=== PATIENT | female | born 1930 | race African-American/Black ===

== ENCOUNTER 2016-08-23 15:05 | Emergency (ER) | payer OTHER ==
[~2016-08-23] VITALS: Ht 182.9 cm; Wt 80.0 kg
[~2016-08-23 15:05] MED LIST: CYCL5TAB PO; SYMB80AE INH; TRAM50TA PO
--- NOTE | 2016-08-23 17:39 | PD ---
HPI Chief Complaint: ex parte Time Seen by Provider: 17:39 Travel History International Travel<30 days: No Contact w/Intl Traveler<30days: No History of Present Illness HPI 85-year-old female with a history of asthma is brought to the emergency department under ex parte for involuntary psychiatric evaluation. Per the ex parte paperwork filled out by her son the patient has been paranoid about him stealing things from her. Per the documentation she told him "if I had a gun I would shoot you." Per the documentation she has also made statements about killing his dog. The patient denies any suicidal or homicidal ideations. States that she and her son do have a strained relationship and she views and as "a good for nothing dud." She denies any medical complaints. She denies fever, chills, nausea, vomiting, chest pain, shortness of breath, abdominal pain , lightheadedness, dizziness, numbness or tingling, weakness. Denies any alcohol or drug use. Denies any history of psychiatric or mental health issues. No other complaints. PFSH Past Medical History Arthritis: Yes Asthma: Yes Autoimmune Disease: No Blood Disorders: No Cancer: No Cardiovascular Problems: No Chemotherapy: No Diminished Hearing: No Endocrine: No Genitourinary: Yes (FIBROID TUMORS) Musculoskeletal: No Neurologic: No Psychiatric: No Respiratory: Yes Immunizations Current: No Migraines: Yes Radiation Therapy: No Menopausal: Yes Dilation and Curettage (D&C): Yes (WITH HYSTROSCOPY 03-16-11) Past Surgical History Hysterectomy: Yes Tonsillectomy: Yes Other Surgery: No Social History Alcohol Use: Yes (RARE) Tobacco Use: No Substance Use: No Allergies-Medications (Allergen,Severity, Reaction): Coded Allergies: Codeine (Verified Allergy, Severe, STOMACH PAIN, 08/23/16) Iodine (Verified Allergy, Severe, 08/23/16) Reported Meds & Prescriptions Reported Meds & Active Scripts Active Flexeril (Cyclobenzaprine HCl) 5 Mg Tab 5 Mg PO TID PRN Tramadol (Tramadol HCl) 50 Mg Tab 50 Mg PO Q6H PRN Reported Symbicort Inh (Budesonide/Formoterol Fumarate) 80-4.5 Mcg/Act Aero 2 Puff INH Q12HR Review of Systems Except as stated in HPI: all other systems reviewed are Neg Physical Exam Narrative GENERAL: Well-nourished and well-developed elderly female patient in no acute distress who is nontoxic appearing. SKIN: Warm and dry. HEAD: Normocephalic and atraumatic. EYES: No injection, drainage, or hyphema noted. PERRLA. EOMI. ENT: No nasal drainage noted. Oropharynx is clear. NECK: Supple and the trachea is midline. CARDIOVASCULAR: Regular rate and rhythm. RESPIRATORY: Breath sounds are equal bilaterally with no accessory muscle use, wheezing, rhonchi, or crackles. GASTROINTESTINAL: Abdomen is soft, non-tender, and nondistended. MUSCULOSKELETAL: No obvious deformities, swelling, cyanosis, or ecchymosis is present throughout the upper and lower extremities. Patient has full range of motion without any signs of neurovascular compromise. Strength 5/5 upper and lower extremities equal bilaterally. NEUROLOGICAL: Awake, alert, and oriented. Normal speech and gait. Cranial nerves are grossly intact. Data Data Last Documented VS Vital Signs Date Time Temp Pulse Resp B/P Pulse Ox O2 Delivery O2 Flow Rate FiO2 08/23/16 18:59 81 14 129/68 100 Room Air 08/23/16 17:50 98.7 Orders Complete Blood Count With Diff (08/23/16 17:39) Comprehensive Metabolic Panel (08/23/16 17:39) Urinalysis - C+S If Indicated (08/23/16 17:39) Drug Screen, Random Urine (08/23/16 17:39) Alcohol (Ethanol) (08/23/16 17:39) Psych Screen (08/23/16 17:39) Labs Laboratory Tests Test 08/23/16 08/23/16 19:37 20:56 White Blood Count 6.9 TH/MM3 Red Blood Count 4.08 MIL/MM3 Hemoglobin 10.8 GM/DL Hematocrit 32.8 % Mean Corpuscular Volume 80.4 FL Mean Corpuscular Hemoglobin 26.4 PG Mean Corpuscular Hemoglobin 32.9 % Concent Red Cell Distribution Width 16.4 % Platelet Count 165 TH/MM3 Mean Platelet Volume 10.0 FL Neutrophils (%) (Auto) 60.6 % Lymphocytes (%) (Auto) 26.8 % Monocytes (%) (Auto) 5.2 % Eosinophils (%) (Auto) 5.7 % Basophils (%) (Auto) 1.7 % Neutrophils # (Auto) 4.2 TH/MM3 Lymphocytes # (Auto) 1.9 TH/MM3 Monocytes # (Auto) 0.4 TH/MM3 Eosinophils # (Auto) 0.4 TH/MM3 Basophils # (Auto) 0.1 TH/MM3 CBC Comment DIFF FINAL Differential Comment Sodium Level 142 MEQ/L Potassium Level 4.1 MEQ/L Chloride Level 109 MEQ/L Carbon Dioxide Level 26.7 MEQ/L Anion Gap 6 MEQ/L Blood Urea Nitrogen 14 MG/DL Creatinine 0.91 MG/DL Estimat Glomerular Filtration 71 ML/MIN Rate Random Glucose 93 MG/DL Calcium Level 8.9 MG/DL Total Bilirubin 0.6 MG/DL Aspartate Amino Transf 12 U/L (AST/SGOT) Alanine Aminotransferase 12 U/L (ALT/SGPT) Alkaline Phosphatase 92 U/L Total Protein 7.7 GM/DL Albumin 3.8 GM/DL Ethyl Alcohol Level LESS THAN 3 MG/DL Urine Color YELLOW Urine Turbidity CLEAR Urine pH 5.0 Urine Specific [place] 1.011 Urine Protein NEG mg/dL Urine Glucose (UA) NEG mg/dL Urine Ketones NEG mg/dL Urine Occult Blood SMALL Urine Nitrite NEG Urine Bilirubin NEG Urine Urobilinogen LESS THAN 2.0 MG/DL Urine Leukocyte Esterase SMALL Urine RBC 1 /hpf Urine WBC 3 /hpf Microscopic Urinalysis Comment CULT NOT INDICATED MDM Medical Decision Making Medical Screen Exam Complete: Yes Emergency Medical Condition: Yes Differential Diagnosis Differential: Depression versus adjustment reaction versus anxiety versus PTSD versus psychosis NOS versus mood disorder NOS versus substance induced mood disorder versus ODD versus adjustment reaction versus schizophrenia versus bipolar disorder versus schizoaffective versus electrolyte abnormality versus dementia Narrative Course Patient presents under ex parte. Physical examination and vital signs are essentially unremarkable. Patient has no medical complaints to report. Psych screen has been ordered. The laboratory results are unremarkable for any acute abnormalities. The patient is medically cleared for psychiatric evaluation and disposition. Diagnosis Primary Impression: Mood disorder Dayana Lara Aug 23, 2016 17:39
[2016-08-23 17:50] VITALS: BP 134/68; PULSE 86; RESP 16; TEMP 98.7; O2SAT 98
[2016-08-23 18:59] VITALS: BP 129/68; PULSE 81; RESP 14; O2SAT 100
[2016-08-23 20:24] LABS: AUTOMATED NEUTROPHIL # 4.2 TH/MM3 (1.8-7.7); BASOPHIL # 0.1 TH/MM3 (0-0.2); BASOPHIL % 1.7 % (0.0-2.0); EOSINOPHIL # 0.4 TH/MM3 (0-0.4); EOSINOPHIL % 5.7 % (0.0-4.0); HEMATOCRIT 32.8 % (35.0-46.0); HEMO FLAGS DIFF FINAL; LYMPH % 26.8 % (9.0-44.0); LYMPHOCYTE # 1.9 TH/MM3 (1.0-4.8); MEAN CELL VOLUME 80.4 FL (80.0-100.0); MEAN CORPUSCULAR HEMOGLOBIN 26.4 PG (27.0-34.0); MEAN CORPUSCULAR HGB CONC 32.9 % (32.0-36.0); MONO % 5.2 % (0.0-8.0); NEUT % 60.6 % (16.0-70.0); PLATELET COUNT 165 TH/MM3 (150-450); RED BLOOD COUNT 4.08 MIL/MM3 (4.00-5.30); RED CELL DISTRIBUTION WIDTH 16.4 % (11.6-17.2); WHITE BLOOD COUNT 6.9 TH/MM3 (4.0-11.0)
[2016-08-23 20:47] LABS: ALT (GPT) 12 U/L (10-53); ANION GAP 6 MEQ/L (5-15); AST (GOT) 12 U/L (15-37); BICARBONATE 26.7 MEQ/L (21.0-32.0); BLOOD UREA NITROGEN 14 MG/DL (7-18); CHLORIDE 109 MEQ/L (98-107); GLOMERULAR FILTRATION RATE 71 ML/MIN (>89); POTASSIUM 4.1 MEQ/L (3.5-5.1); SODIUM (NA) 142 MEQ/L (136-145)
[2016-08-23 20:48] LABS: ALKALINE PHOSPHATASE 92 U/L (45-117); TOTAL BILIRUBIN ADULT 0.6 MG/DL (0.2-1.0)
[2016-08-23 21:34] LABS: BLOOD, URINE SMALL (NEG); COMMENT (UR) CULT NOT INDICATED; CULTURE IF INDICATED CULT NOT INDICATED; GLUCOSE,URINE NEG (NEG); KETONE, URINE NEG (NEG); NITRITE,URINE NEG (NEG); URINE COLOR YELLOW (YELLW/STRAW)
[2016-08-23 21:36] LABS: AMPHETAMINE, URINE NEG (NEG); BARBITURATES, URINE NEG (NEG); COCAINE, URINE NEG (NEG)
[2016-08-24 07:32] VITALS: BP 133/63; PULSE 76; RESP 16; O2SAT 99
[2016-08-24 11:00] VITALS: BP 124/76; PULSE 89; RESP 19; O2SAT 96
--- NOTE | 2016-08-24 12:29 | PD ---
History of Present Illness Chief Complaint: Medical Clearance Time Seen by Provider: 11:45 Travel History International Travel<30 Days: No Contact w/Intl Traveler<30days: No Known affected area: No Legal Status Legal Status: Ex Parte History of Present Illness: History of Present Illness HPI 85-year-old female with a history of asthma and no previous psychiatric history who is brought to the emergency department under ex parte for involuntary psychiatric evaluation. Per the ex parte paperwork filled out by her son the patient has been paranoid about him stealing things from her. He also alleges that she told him "if I had a gun I would shoot you." She has also made statements about killing his dog. Patient is seen. Record is reviewed. As per EMR she has not had previous contact with [facility] [place] She is seen in main ED. Awake, alert and oriented x 4. Speech is clear and logical. She engages well with chart writer and answers questions appropriately. In terms of reason for being here she states " My son had the police pick me up". She goes on to report that she does not get along with her son, that he tries to " get into my things such as my money ". She does not endorse any hallucinations, no delusions and no paranoia. There is no suicidal or homicidal ideation, intent or plan. She admits to getting angry at her son but does not report wanting to harm him. As per ER nurse patient has not presented any behavioral concerns. Telephone call to patient's son Derrick at [phone]. Son reports that he has been living with his mother since April and that prior to that she was living independently in her own apartment. He reports that his mother accuses him of stealing her things like her lottery tickets and her money.He just found a small handgun in her room and he has removed it from her possession.He reports that his mother is very active and gets around well . She goes to [employer] , goes out shopping, etc. He has been trying to complete paperwork for power of sas analyst and felt that bringing her here would help with this process. He was also trying to find information regarding her insurance policy and she found out and became very angry. He does not have concerns regarding her safety and thanks me for our help and our call. PFSH Past Medical History Arthritis: Yes Asthma: Yes Autoimmune Disease: No Blood Disorders: No Cancer: No Cardiovascular Problems: No Chemotherapy: No Diminished Hearing: No Endocrine: No Gastrointestinal Disorders: No Genitourinary: Yes (FIBROID TUMORS) Musculoskeletal: No Neurologic: No Psychiatric: No Respiratory: Yes Immunizations Current: No Migraines: Yes Radiation Therapy: No Menopausal: Yes Dilation and Curettage (D&C): Yes (WITH HYSTROSCOPY 03-16-11) Past Surgical History Hysterectomy: Yes Tonsillectomy: Yes Other Surgery: No Psychiatric History Psychiatric History Hx Psychiatric Treatment: none History of Inpatient Treatment: No Guns or firearms in home: Yes (Son has removed from the home) Social History Born in [place]. One of 12 siblings. Worked as a front window cashier. Lives with her son. Hx Alcohol Use: Yes (RARE) Hx Tobacco Use: No Hx Substance Use: No Hx of Substance Use Treatment: No Family Psychiatric History negative Allergies-Medications (Allergen,Severity, Reaction): Coded Allergies: Codeine (Verified Allergy, Severe, STOMACH PAIN, 08/23/16) Iodine (Verified Allergy, Severe, 08/23/16) Reported Meds & Prescriptions Reported Meds & Active Scripts Active Flexeril (Cyclobenzaprine HCl) 5 Mg Tab 5 Mg PO TID PRN Tramadol (Tramadol HCl) 50 Mg Tab 50 Mg PO Q6H PRN Reported Symbicort Inh (Budesonide/Formoterol Fumarate) 80-4.5 Mcg/Act Aero 2 Puff INH Q12HR Review of Systems Constitutional: DENIES: Diaphoretic episodes, Fatigue, Fever, Weight gain, Weight loss, Chills, Dizziness, Change in appetite, Night Sweats Endocrine: DENIES: Abnorml menstrual pattern, Heat/cold intolerance, Polydipsia , Polyuria, Polyphagia Eyes: COMPLAINS OF: Vision loss Ears, nose, mouth, throat: COMPLAINS OF: Hearing loss Respiratory: DENIES: Apneas, Cough, Snoring, Wheezing, Hemoptysis, Sputum production, Shortness of breath Cardiovascular: DENIES: Chest pain, Palpitations, Syncope, Dyspnea on Exertion , PND, Lower Extremity Edema, Orthopnea, Claudication Gastrointestinal: DENIES: Abdominal pain, Black stools, Bloody stools, Constipation, Diarrhea, Nausea, Vomiting, Difficulty Swallowing, Anorexia Genitourinary: DENIES: Abnormal vaginal bleeding, Dysmenorrhea, Dyspareunia, Sexual dysfunction, Urinary frequency, Urinary incontinence, Urgency, Hematuria , Dysuria, Nocturia, Vaginal discharge Musculoskeletal: COMPLAINS OF: Joint pain Integumentary: DENIES: Abnormal pigmentation, Pruritus, Rash, Nail changes, Breast masses, Breast skin changes, Nipple discharge Hematologic/lymphatic: DENIES: Bruising, Lymphadenopathy Immunologic/allergic: DENIES: Eczema, Urticaria Neurologic: DENIES: Abnormal gait, Headache, Localized weakness, Paresthesias, Seizures, Speech Problems, Tremor, Poor Balance Psychiatric: COMPLAINS OF: Agitation Exam Alert: Yes [place]: Person (ox4) Mood: Angry Affect: Euthymic Speech: Clear Eye Contact: Normal Memory Intact: Comment (Able to spell the word world both ways. ) Hallucinations: Other (denies any) Delusions: No Delusion Type: Other (none) Suicidal: Ideation (denies ) Homicidal: Ideation (denies any) Insight/Judgement Fair. Not impaired. MDM Medical Decision Making Medical Record Reviewed: Yes Assessment/Plan Lift BA.Does not meet BA criteria. There is no psychosis and no tracy. There is no suicidal or homicidal ideation. Patient is angry with her son as he is beginning to make arrangements such as obtaining power of sas analyst. He has no issues over having her discharged and having her come home. Orders Complete Blood Count With Diff (08/23/16 17:39) Comprehensive Metabolic Panel (08/23/16 17:39) Urinalysis - C+S If Indicated (08/23/16 17:39) Drug Screen, Random Urine (08/23/16 17:39) Alcohol (Ethanol) (08/23/16 17:39) Psych Screen (08/23/16 17:39) Diet Regular Basic (08/24/16 Breakfast) Results Vital Signs Date Time Temp Pulse Resp B/P Pulse Ox O2 Delivery O2 Flow Rate FiO2 08/24/16 11:00 89 19 124/76 96 Room Air 08/24/16 07:32 76 16 133/63 99 Room Air 08/23/16 18:59 81 14 129/68 100 Room Air 08/23/16 17:50 98.7 86 16 134/68 98 Laboratory Tests Test 08/23/16 08/23/16 19:37 20:56 White Blood Count 6.9 Red Blood Count 4.08 Hemoglobin 10.8 Hematocrit 32.8 Mean Corpuscular Volume 80.4 Mean Corpuscular Hemoglobin 26.4 Mean Corpuscular Hemoglobin 32.9 Concent Red Cell Distribution Width 16.4 Platelet Count 165 Mean Platelet Volume 10.0 Neutrophils (%) (Auto) 60.6 Lymphocytes (%) (Auto) 26.8 Monocytes (%) (Auto) 5.2 Eosinophils (%) (Auto) 5.7 Basophils (%) (Auto) 1.7 Neutrophils # (Auto) 4.2 Lymphocytes # (Auto) 1.9 Monocytes # (Auto) 0.4 Eosinophils # (Auto) 0.4 Basophils # (Auto) 0.1 CBC Comment DIFF FINAL Differential Comment Sodium Level 142 Potassium Level 4.1 Chloride Level 109 Carbon Dioxide Level 26.7 Anion Gap 6 Blood Urea Nitrogen 14 Creatinine 0.91 Estimat Glomerular Filtration 71 Rate Random Glucose 93 Calcium Level 8.9 Total Bilirubin 0.6 Aspartate Amino Transf 12 (AST/SGOT) Alanine Aminotransferase 12 (ALT/SGPT) Alkaline Phosphatase 92 Total Protein 7.7 Albumin 3.8 Ethyl Alcohol Level LESS THAN 3 Urine Color YELLOW Urine Turbidity CLEAR Urine pH 5.0 Urine Specific [place] 1.011 Urine Protein NEG Urine Glucose (UA) NEG Urine Ketones NEG Urine Occult Blood SMALL Urine Nitrite NEG Urine Bilirubin NEG Urine Urobilinogen LESS THAN 2.0 Urine Leukocyte Esterase SMALL Urine RBC 1 Urine WBC 3 Microscopic Urinalysis Comment CULT NOT INDICATED Urine Opiates Screen NEG Urine Barbiturates Screen NEG Urine Amphetamines Screen NEG Urine Benzodiazepines Screen NEG Urine Cocaine Screen NEG Urine Cannabinoids Screen NEG Diagnosis Primary Impression: Mood disorder Additional Impression: Adjustment disorder Psychiatrically Cleared: Yes Med/ Other Pt Specific Info: No Change to Meds Disposition: 01 DISCHARGE HOME Condition: Stable Problem Qualifiers Additional Impression: Adjustment disorder Qualified Code: F43.22 - Adjustment disorder with anxious mood Iwona Cobos Aug 24, 2016 12:29
[2016-08-24 13:00] VITALS: BP 153/80; PULSE 80; RESP 17; O2SAT 96
== END 2016-08-24 14:34 | disposition home or self-care (01) ==
LOC: NEPA 15:05 → NEDAMB 08-24 14:34
DX: F39 Unspecified mood [affective] disorder (principal); F43.20 Adjustment disorder, unspecified
CPT/HCPCS: 80053; 80307; 80320; 81001; 85025; 99284

== ENCOUNTER 2017-01-24 09:45 | Observation (INO) | payer OTHER ==
[~2017-01-24] VITALS: Ht 182.9 cm; Wt 76.0 kg
[2017-01-24] VITALS (10 sets, daily range): BP systolic 119–156; BP diastolic 58–70; PULSE 62–84; RESP 15–18; TEMP 97.9–98.5; O2SAT 97–100
[2017-01-24] MEDS ORDERED: SODIUM CHLORIDE 0.9% FLUSH 10 ML FLUSH IVF PRN (10:15)
[2017-01-24] MEDS ORDERED: NITROGLYCERIN 0.4 MG SL 25 TABS/BTL SL ONE (10:15)
[2017-01-24] MEDS ORDERED: ASPIRIN 325 MG TAB PO ONE (10:15)
--- NOTE | 2017-01-24 10:28 | PD ---
HPI Chief Complaint: Chest Pain Time Seen by Provider: 10:06 Travel History International Travel<30 days: No Contact w/Intl Traveler<30days: No Traveled to known affect area: No History of Present Illness HPI 86-year-old female presents with left-sided chest pressure and soreness under her left breast for the past 2 weeks. She states that it has gotten worse so she elected to come here. She states she has not taken an aspirin yet today. She denies prior history of this. She does not follow with a director of global marketing and denies prior cardiac testing. Severity is moderate. Pain is worse with movement. She denies other modifying factors. PFSH Past Medical History Arthritis: Yes Asthma: Yes Autoimmune Disease: No Blood Disorders: No Cancer: No Cardiovascular Problems: No Chemotherapy: No Diminished Hearing: No Endocrine: No Gastrointestinal Disorders: No Genitourinary: Yes (FIBROID TUMORS) Musculoskeletal: No Neurologic: No Psychiatric: No Respiratory: Yes (asthma) Immunizations Current: No Migraines: Yes Radiation Therapy: No Menopausal: Yes Dilation and Curettage (D&C): Yes (WITH HYSTROSCOPY 03-16-11) Past Surgical History Hysterectomy: Yes Tonsillectomy: Yes Other Surgery: No Family History Family Myocardial Infarction: No Social History Alcohol Use: Yes (RARE) Tobacco Use: No Substance Use: No Allergies-Medications (Allergen,Severity, Reaction): Coded Allergies: Codeine (Verified Allergy, Severe, STOMACH PAIN, 01/24/17) Iodine (Verified Allergy, Severe, 01/24/17) Reported Meds & Prescriptions Reported Meds & Active Scripts Active Flexeril (Cyclobenzaprine HCl) 5 Mg Tab 5 Mg PO TID PRN Tramadol (Tramadol HCl) 50 Mg Tab 50 Mg PO Q6H PRN Reported Symbicort Inh (Budesonide/Formoterol Fumarate) 80-4.5 Mcg/Act Aero 2 Puff INH Q12HR Review of Systems Except as stated in HPI: all other systems reviewed are Neg Physical Exam Narrative GENERAL: Well-nourished, well-developed patient. SKIN: Warm and dry. HEAD: Normocephalic and atraumatic. EYES: No injection or drainage. ENT: No nasal drainage noted. NECK: Supple, trachea midline. CARDIOVASCULAR: Regular rate and rhythm RESPIRATORY: Breath sounds equal bilaterally. No accessory muscle use. GASTROINTESTINAL: Abdomen soft, non-tender, nondistended. EXTREMITIES: No edema. NEUROLOGICAL: Awake and alert. Motor and sensory grossly within normal limits. Normal speech. Data Data Last Documented VS Vital Signs Date Time Temp Pulse Resp B/P Pulse Ox O2 Delivery O2 Flow Rate FiO2 01/24/17 10:35 15 01/24/17 10:17 147/63 100 Room Air 01/24/17 09:47 98.2 84 Orders Electrocardiogram (01/24/17 10:06) Ckmb (Isoenzyme) Profile (01/24/17 10:06) Complete Blood Count With Diff (01/24/17 10:06) Comprehensive Metabolic Panel (01/24/17 10:06) Magnesium (Mg) (01/24/17 10:06) Prothrombin Time / Inr (Pt) (01/24/17 10:06) Act Partial Throm Time (Ptt) (01/24/17 10:06) Troponin I (01/24/17 10:06) Chest, Single Ap (01/24/17 10:06) Ecg Monitoring (01/24/17 10:06) Bilateral Bp Monitoring (01/24/17 10:06) Iv Access Insert/Monitor (01/24/17 10:06) Oximetry (01/24/17 10:06) Sodium Chloride 0.9% Flush (Ns Flush) (01/24/17 10:15) Aspirin (Aspirin) (01/24/17 10:15) Nitroglycerin Sl (Nitrostat Sl) (01/24/17 10:15) Admit Order (Ed Use Only) (01/24/17 11:30) Labs Laboratory Tests Test 01/24/17 01/24/17 10:20 11:04 White Blood Count 5.4 TH/MM3 Red Blood Count 4.08 MIL/MM3 Hemoglobin 11.0 GM/DL Hematocrit 33.6 % Mean Corpuscular Volume 82.4 FL Mean Corpuscular Hemoglobin 27.1 PG Mean Corpuscular Hemoglobin 32.8 % Concent Red Cell Distribution Width 14.4 % Platelet Count 155 TH/MM3 Mean Platelet Volume 10.8 FL Neutrophils (%) (Auto) 60.7 % Lymphocytes (%) (Auto) 23.0 % Monocytes (%) (Auto) 5.2 % Eosinophils (%) (Auto) 10.4 % Basophils (%) (Auto) 0.7 % Neutrophils # (Auto) 3.3 TH/MM3 Lymphocytes # (Auto) 1.2 TH/MM3 Monocytes # (Auto) 0.3 TH/MM3 Eosinophils # (Auto) 0.6 TH/MM3 Basophils # (Auto) 0.0 TH/MM3 CBC Comment DIFF FINAL Differential Comment Sodium Level 145 MEQ/L Potassium Level 3.9 MEQ/L Chloride Level 112 MEQ/L Carbon Dioxide Level 24.2 MEQ/L Anion Gap 9 MEQ/L Blood Urea Nitrogen 17 MG/DL Creatinine 1.02 MG/DL Estimat Glomerular Filtration 62 ML/MIN Rate Random Glucose 115 MG/DL Calcium Level 8.8 MG/DL Magnesium Level 2.3 MG/DL Total Bilirubin 0.3 MG/DL Aspartate Amino Transf 19 U/L (AST/SGOT) Alanine Aminotransferase 15 U/L (ALT/SGPT) Alkaline Phosphatase 91 U/L Total Creatine Kinase 66 U/L Troponin I LESS THAN 0.02 NG/ML Total Protein 7.4 GM/DL Albumin 3.6 GM/DL Prothrombin Time 11.6 SEC Prothromb Time International 1.0 RATIO Ratio Activated Partial 24.9 SEC Thromboplast Time MDM Medical Decision Making Medical Screen Exam Complete: Yes Emergency Medical Condition: Yes Medical Record Reviewed: Yes (past history confirmed) Interpretation(s) CBC & BMP Diagram 01/24/17 10:20 Last 24 hours Impressions Chest X-Ray 01/24/17 1006 Signed Impressions: Service Date/Time: Tuesday, January 24, 2017 10:02 - CONCLUSION: No acute disease. Srikanth Tatum MD EKG shows NSR, no ST elevation or depression, and no arrhythmias. No significant T-wave inversions. Differential Diagnosis VT, musculoskeletal, gastritis, costochondritis Narrative Course Will check blood work, chest x-ray, EKG and dose with aspirin and nitroglycerin and reevaluate ED workup without emergent process, patient agrees to chest pain center observation Diagnosis Primary Impression: Chest pain Qualified Code: R07.9 - Chest pain, unspecified type Admitting Information Admitting Physician Requests: Observation Leandra Chacon MD Jan 24, 2017 10:28
--- NOTE | 2017-01-24 10:50 | RADRPT ---
EXAM DATE/TIME: 01/24/2017 10:02 [facility] COMPARISON: CHEST PA & LAT, September 25, 2014, 15:50. CHEST SINGLE AP, September 04, 2015, 8:27. INDICATIONS : Chest pain. MEDICAL HISTORY : Seizures. SURGICAL HISTORY : None. ENCOUNTER: Initial ACUITY: 1 day PAIN SCORE: 6/10 LOCATION: Bilateral chest FINDINGS: A single view of the chest demonstrates the lungs to be symmetrically aerated without evidence of mas s, infiltrate or effusion. The cardiomediastinal contours are unremarkable. Osseous structures are intact. CONCLUSION: No acute disease. Srikanth Tatum MD on January 24, 2017 at 10:46 Board Certified Radiologist. This report was verified electronically.
[2017-01-24 10:58] LABS: AUTOMATED NEUTROPHIL # 3.3 TH/MM3 (1.8-7.7); BASOPHIL % 0.7 % (0.0-2.0); EOSINOPHIL # 0.6 TH/MM3 (0-0.4); EOSINOPHIL % 10.4 % (0.0-4.0); HEMATOCRIT 33.6 % (35.0-46.0); HEMO FLAGS DIFF FINAL; LYMPHOCYTE # 1.2 TH/MM3 (1.0-4.8); MEAN CELL VOLUME 82.4 FL (80.0-100.0); MEAN CORPUSCULAR HEMOGLOBIN 27.1 PG (27.0-34.0); MEAN CORPUSCULAR HGB CONC 32.8 % (32.0-36.0); MONO % 5.2 % (0.0-8.0); NEUT % 60.7 % (16.0-70.0); PLATELET COUNT 155 TH/MM3 (150-450); RED BLOOD COUNT 4.08 MIL/MM3 (4.00-5.30); RED CELL DISTRIBUTION WIDTH 14.4 % (11.6-17.2); WHITE BLOOD COUNT 5.4 TH/MM3 (4.0-11.0)
[2017-01-24 11:23] LABS: ALKALINE PHOSPHATASE 91 U/L (45-117); ALT (GPT) 15 U/L (10-53); ANION GAP 9 MEQ/L (5-15); AST (GOT) 19 U/L (15-37); BICARBONATE 24.2 MEQ/L (21.0-32.0); BLOOD UREA NITROGEN 17 MG/DL (7-18); CHLORIDE 112 MEQ/L (98-107); GLOMERULAR FILTRATION RATE 62 ML/MIN (>89); MAGNESIUM 2.3 MG/DL (1.5-2.5); SODIUM (NA) 145 MEQ/L (136-145); TOTAL BILIRUBIN ADULT 0.3 MG/DL (0.2-1.0)
[2017-01-24 11:24] LABS: CREATINE KINASE 66 U/L (26-192); POTASSIUM 3.9 MEQ/L (3.5-5.1)
[2017-01-24 11:28] LABS: APTT (PATIENT) 24.9 SEC (24.3-30.1); PROTHROMBIN TIME - PATIENT 11.6 SEC (9.8-11.6)
[2017-01-24] MEDS ORDERED: ACETAMINOPHEN 500 MG CPLT PO PRN (12:15)
[2017-01-24] MEDS ORDERED: ONDANSETRON HCL 4 MG/2 ML VIAL IV PRN (12:15)
[2017-01-24] MEDS ORDERED: NITROGLYCERIN 0.4 MG SL 25 TABS/BTL SL PRN (12:15)
[2017-01-24 14:27] LABS: CREATINE KINASE 66 U/L (26-192)
--- NOTE | 2017-01-24 14:43 | HHI.HP ---
HPI Primary Care Physician [facility] Chief Complaint Chest pain History of Present Illness 86-year-old female with history of asthma and arthritis presents to emergency room for further evaluation of chest pain. Onset 1 week ago. Location left inframammary. States pain started at the bottom of her left rib cage initially and "has worked its way up to under my breast." Characterized as a "pain rolling on my rib." No associated symptoms of shortness of breath, nausea, or diaphoresis. Breathing does not make pain better or worse nor does particular movements or position. No precipitating or relieving factors. Denies any similar pain in the past. Endorses worse pain was actually on Monday after walking a half a mile to the [place]. Once returning home she continued to cook supper then felt faint. She did not lose consciousness and denied dizziness. She decided to go to bed early that evening. She decided to come to the ER for further evaluation due to persistent chest discomfort. Review of Systems General: No fatigue,weakness, fever, chills, recent illness, or change in appetite. Has been in her general state of health. HEENT: No PHILIP, no vision changes, no nasal congestion or drainage, no dysphasia CV: As stated above. No palpitations or intermittent leg pain. RESP: No SOB, cough, or wheeze. History of asthma. GI: No nausea, vomiting, bowel changes, diarrhea, constipation, pain, distention , melena, blood in the stool. : No dysuria, urgency, frequency EXT: No lower leg edema, no paraesthesias MS: No discomfort or change in ROM, ambulates with a cane NEURO: No LOC, motor/sensory deficits PSYCH: No anxiety, depression SKIN: No rashes, no concerning lesions Past Family Social History Allergies: Coded Allergies: Codeine (Verified Allergy, Severe, STOMACH PAIN, 01/24/17) Iodine (Verified Allergy, Severe, 01/24/17) Past Medical History Asthma, arthritis, migraines Past Surgical History Hysterectomy, tonsillectomy Reported Medications Active Symbicort Inh (Budesonide/Formoterol Fumarate) 80-4.5 Mcg/Act Aero 2 Puff INH Q12HR Active Ordered Medications Current Medications Medications (Trade) Dose Ordered Sig/Salbador Route Start Time Stop Time Status Last Admin (Tylenol) 500 mg Q4H PRN PO 01/24/17 12:15 (Zofran Inj) 4 mg Q6H PRN IV 01/24/17 12:15 (Nitrostat Sl) 0.4 mg Q5M PRN SL 01/24/17 12:15 (Aspirin) 325 mg DAILY PO 01/25/17 09:00 Social History No known diabetes, hyperlipidemia, or hypertension. Lifelong nonsmoker. Denies any alcohol or illegal drug use. Ambulates with a cane states she tries to get daily activity. Past cardiac testing None Physical Exam Vital Signs Vital Signs Date Time Temp Pulse Resp B/P Pulse Ox O2 Delivery O2 Flow Rate FiO2 01/24/17 13:57 98.0 64 16 128/60 99 01/24/17 13:11 68 16 97 Room Air 01/24/17 13:11 65 15 97 Room Air 01/24/17 12:49 62 16 119/58 97 01/24/17 10:35 15 01/24/17 10:17 18 147/63 100 Room Air 01/24/17 09:47 98.2 84 16 156/70 98 Physical Exam GENERAL: Alert WN, WD, NAD, pleasant, elderly female HEAD: NC, AT EYES: Sclera clear, conjunctiva without injection, pupils equal and round ENT: Mucous membranes pink and moist NECK: Supple, no masses, trachea midline CV: RRR, without murmur, rub, gallop, no JVD, S1-S2 no S3-S4. RESP: Clear lungs throughout bilateral, no crackles, wheeze, rhonchi, symmetrical chest rise, nonlabored, able to speak in full sentences ABD: Soft, NT, ND, no masses, positive bowel tones BACK: No CVAT EXT: Pulses +24, no dependent edema MS: Normal tone 4 extremities, nontender, no obvious deformities, full range of motion NEURO: CN II through CN XII grossly intact, motor strength 5/5, gait WNL PSYCH: A+O 3, pleasant affect, appropriate speech, appropriate mood and affect , insight and judgment SKIN: Normal turgor, normal texture Laboratory Laboratory Tests Test 01/24/17 01/24/17 01/24/17 10:20 11:04 13:20 White Blood Count 5.4 Red Blood Count 4.08 Hemoglobin 11.0 Hematocrit 33.6 Mean Corpuscular Volume 82.4 Mean Corpuscular Hemoglobin 27.1 Mean Corpuscular Hemoglobin 32.8 Concent Red Cell Distribution Width 14.4 Platelet Count 155 Mean Platelet Volume 10.8 Neutrophils (%) (Auto) 60.7 Lymphocytes (%) (Auto) 23.0 Monocytes (%) (Auto) 5.2 Eosinophils (%) (Auto) 10.4 Basophils (%) (Auto) 0.7 Neutrophils # (Auto) 3.3 Lymphocytes # (Auto) 1.2 Monocytes # (Auto) 0.3 Eosinophils # (Auto) 0.6 Basophils # (Auto) 0.0 CBC Comment DIFF FINAL Differential Comment Sodium Level 145 Potassium Level 3.9 Chloride Level 112 Carbon Dioxide Level 24.2 Anion Gap 9 Blood Urea Nitrogen 17 Creatinine 1.02 Estimat Glomerular Filtration 62 Rate Random Glucose 115 Calcium Level 8.8 Magnesium Level 2.3 Total Bilirubin 0.3 Aspartate Amino Transf 19 (AST/SGOT) Alanine Aminotransferase 15 (ALT/SGPT) Alkaline Phosphatase 91 Total Creatine Kinase 66 66 Troponin I LESS THAN 0.02 LESS THAN 0.02 Total Protein 7.4 Albumin 3.6 Prothrombin Time 11.6 Prothromb Time International 1.0 Ratio Activated Partial 24.9 Thromboplast Time Result Diagram: 01/24/17 1020 01/24/17 1020 Imaging Last Impressions Chest X-Ray 01/24/17 1006 Signed Impressions: Service Date/Time: Tuesday, January 24, 2017 10:02 - CONCLUSION: No acute disease. Srikanth Tatum MD Course EKG NSR, normal axis, no st t segment changes Assessment and Plan Assessment and Plan #1 Atypical chest painadmitted to chest pain center. Rule out with 3 sets of EKGs, cardiac enzymes, and monitor overnight. Seen and evaluated by Dr. Dalia Monterroso. Will complete chemical stress test in am. Patient is agreeable to plan a care. #2 Asthmacontinue Elvia Wallace Jan 24, 2017 14:43
[2017-01-24] MEDS ORDERED: RESP: ALBUTEROL 2.5 MG/3 ML NEB (PRN) NEB (17:45)
--- NOTE | 2017-01-24 18:42 | EKG ---
Date Performed: 01/24/2017 Time Performed: 16:22:37 PTAGE: 86 years EKG: Sinus rhythm NORMAL ECG Since PREVIOUS TRACING , no significant change noted PREVIOUS TRACIN01/24/2017 13.46 DOCTOR: Dalia Monterroso Interpretating Date/Time 01/24/2017 18:40:45
--- NOTE | 2017-01-24 18:42 | EKG ---
Date Performed: 01/24/2017 Time Performed: 13:46:30 PTAGE: 86 years EKG: Sinus rhythm NORMAL ECG Since PREVIOUS TRACING , no significant change noted PREVIOUS TRACIN01/24/2017 10.15 DOCTOR: Dalia Monterroso Interpretating Date/Time 01/24/2017 18:40:34
--- NOTE | 2017-01-24 18:43 | EKG ---
Date Performed: 01/24/2017 Time Performed: 10:15:54 PTAGE: 86 years EKG: Sinus rhythm NORMAL ECG Since PREVIOUS TRACING , no significant change noted DOCTOR: Dalia Monterroso Interpretating Date/Time 01/24/2017 18:43:02
[2017-01-24] MEDS: BUDESONIDE-FORMOTEROL 80/4.5 MCG INHALER INH SCH (22:06)
[2017-01-24] MEDS: SODIUM CHLORIDE 0.9% FLUSH 10 ML FLUSH IV FLUSH SCH (22:06)
[2017-01-24 22:14] LABS: CREATINE KINASE 43 U/L (26-192)
[2017-01-25 00:28] VITALS: BP 112/57; PULSE 69; RESP 16; TEMP 98; O2SAT 100
[2017-01-25 03:47] VITALS: BP 126/60; PULSE 63; RESP 18; TEMP 98; O2SAT 95
[2017-01-25 07:16] VITALS: BP 134/63; PULSE 66; RESP 16; TEMP 97.9; O2SAT 99
[2017-01-25 08:00] VITALS: PULSE 74
[2017-01-25 08:03] VITALS: O2SAT 99
[2017-01-25] MEDS: SODIUM CHLORIDE 0.9% FLUSH 10 ML FLUSH IV FLUSH SCH (08:20)
[2017-01-25] MEDS: BUDESONIDE-FORMOTEROL 80/4.5 MCG INHALER INH SCH (08:21)
[2017-01-25] MEDS ORDERED: ASPIRIN 325 MG TAB PO SCH (09:00)
[2017-01-25] MEDS ORDERED: REGADENOSON INJ 0.4 MG/5 ML SYR ONE (09:55)
--- NOTE | 2017-01-25 11:04 | RADRPT ---
EXAM DATE/TIME: 01/25/2017 09:09 [facility] COMPARISON: No previous studies available for comparison. INDICATIONS : Chest pain for 1 week. Angina. DOSE: 26.1 mCi Tc99m Myoview at stress. 8.2 mCi Tc99m Myoview at rest. 0.4 mg Lexiscan STRESS SYMPTOMS: None noted. EJECTION FRACTION: > 70% MEDICAL HISTORY : Hypertension. Renal insufficiency. SURGICAL HISTORY : Hysterectomy. ENCOUNTER: Initial ACUITY: 1 day PAIN SCALE: 4/10 LOCATION: Bilateral chest TECHNIQUE: The patient underwent pharmacologic stress with infusion of prescribed dose. Continuous ECG tracing was monitored during stress. Gated SPECT imaging was performed after stress and conventional SPECT i maging was performed at rest. The examination was performed on a SPECT/CT scanner, both attenuation and non-corrected datasets were reviewed. FINDINGS: DISTRIBUTION: The maximum perfused segment at stress is in the lateral wall. PERFUSION STUDY: The pattern of perfusion at stress is within normal limits. GATED STUDY: There is intact wall motion and thickening without hypokinetic or dyskinetic segments. CONCLUSION: 1. No significant reversible perfusion abnormality. 2. No focal motion segment abnormality with EF of greater than 70%. RISK CATEGORY: 1-Low risk (<1% annual mortality rate) Ulysses Swenson MD on January 25, 2017 at 10:58 Board Certified Radiologist. This report was verified electronically.
--- NOTE | 2017-01-25 11:36 | HHI.DCPOC ---
Discharge Care Plan Diagnosis: (1) Chest pain, atypical (2) Asthma Goals to Promote Your Health * To prevent worsening of your condition and complications * To maintain your health at the optimal level Directions to Meet Your Goals Take your medications as prescribed Follow your dietary instruction Follow activity as directed Keep your appointments as scheduled Take your immunizations and boosters as scheduled If your symptoms worsen call your PCP, if no PCP go to Urgent Care Center or Emergency Room Smoking is Dangerous to Your Health. Avoid second hand smoke Call the 24-hour hour crisis hotline for domestic abuse at [place] Jan 25, 2017 11:36
--- NOTE | 2017-01-25 16:18 | TR ---
Date Performed: 01/25/2017 Time Performed: 09:52:22 DOCTOR: Behzad Breen DRUG LIST: CLINICAL HISTORY: ANGINA REASON FOR TEST: Angina REASON FOR ENDING: OBSERVATION: CONCLUSION: Lexiscan stress test was performed under standard four minute protocol. Radionuclid e was injected one minute prior to ending the test. No electrocardiographic abormalities were present to suggest ischemia. Nuclear imaging and interpretation are pending. COMMENTS:
== END 2017-01-25 12:43 | disposition home or self-care (01) ==
LOC: NEPC 09:45 → NEDA 11:32 → NEPGCP 13:29
PROVIDERS: ADMIT Internal Medicine Interventional Cardiology; ATTEND Internal Medicine Interventional Cardiology
DX: R07.89 Other chest pain (principal); J45.909 Unspecified asthma, uncomplicated; I20.9 Angina pectoris, unspecified; N28.9 Disorder of kidney and ureter, unspecified; I10 Essential (primary) hypertension; M19.90 Unspecified osteoarthritis, unspecified site
CPT/HCPCS: 71010; 78452; 80053; 82550; 83735; 84484; 85025; 85610; 85730; 93005; 93017; 99285; A9502; G0378; J2785

== ENCOUNTER 2017-02-16 10:37 | Emergency (ER) | payer OTHER ==
[~2017-02-16 10:37] MED LIST changes: -CYCL5TAB PO; -TRAM50TA PO
[2017-02-16 10:39] VITALS: BP 154/74; PULSE 88; RESP 20; TEMP 98.8; O2SAT 99
[2017-02-16] MEDS ORDERED: CHOL1CAP14 PO (10:59)
[2017-02-16] MEDS ORDERED: MULT-116 PO (10:59)
--- NOTE | 2017-02-16 11:09 | PD ---
HPI Chief Complaint: GI Complaint Time Seen by Provider: 11:08 Travel History International Travel<30 days: No Contact w/Intl Traveler<30days: No Traveled to known affect area: No History of Present Illness HPI 86-year-old female presents to the ED for evaluation of intermittent constipation the patient 3 weeks. Patient states last bowel movement was yesterday, described as "normal." She denies fevers, chills, anorexia, nausea, vomiting, abdominal pain, melena, hematochezia, dysuria. She states that she treated by taking "around the third of a bottle" of mag citrate. States that she attempted to insert a suppository but "it wouldn't go." Patient is unsure if she ever had a colonoscopy. Patient also complains of left scapular pain, worsened by certain movements. She can identify no acute injury. No treatment attempted home. PFSH Past Medical History Arthritis: Yes Asthma: Yes Autoimmune Disease: No Blood Disorders: No Heart Rhythm Problems: No Cancer: No Cardiac Catheterization: No Cardiovascular Problems: No High Cholesterol: No Chemotherapy: No Congestive Heart Failure: No Diabetes: No Diminished Hearing: No Endocrine: No Gastrointestinal Disorders: No Genitourinary: Yes (FIBROID TUMORS) Musculoskeletal: No Neurologic: No Psychiatric: No Respiratory: Yes (asthma) Immunizations Current: No Migraines: Yes Radiation Therapy: No ?: Not Menopausal: Yes Dilation and Curettage (D&C): Yes (WITH HYSTROSCOPY 03-16-11) Past Surgical History Coronary Artery Bypass Graft: No Hysterectomy: Yes Tonsillectomy: Yes Other Surgery: No Social History Alcohol Use: No Tobacco Use: No Substance Use: No Allergies-Medications (Allergen,Severity, Reaction): Coded Allergies: Codeine (Verified Allergy, Severe, STOMACH PAIN, 01/24/17) Iodine (Verified Allergy, Severe, 01/24/17) Reported Meds & Prescriptions Reported Meds & Active Scripts Active Stool Softener (Docusate Calcium) 240 Mg Cap 240 Mg PO DAILY Gentle Laxative DR (Bisacodyl) 5 Mg Tabdr 5 Mg PO DAILY PRN Psyllium Powder 1 Pow Pow 1 Scoop PO TID PRN 14 Days 1 rounded TEASPOON in 8 oz of liquid at the first sign of irregularity. Reported D3 Maximum Strength (Cholecalciferol) 5,000 Unit Cap 5,000 Units PO DAILY Yariel Mag Zinc + D3 (Multiple Vitamins W/ Minerals) 1 Tab 1 Tab PO DAILY Symbicort Inh (Budesonide/Formoterol Fumarate) 80-4.5 Mcg/Act Aero 2 Puff INH Q12HR Review of Systems Except as stated in HPI: all other systems reviewed are Neg Physical Exam Narrative GENERAL: Well-nourished, well-developed thin elderly female in no acute distress. SKIN: Focused skin assessment warm/dry. HEAD: Normocephalic. EYES: No scleral icterus. No injection or drainage. NECK: Supple, trachea midline. No JVD or lymphadenopathy. CARDIOVASCULAR: Regular rate and rhythm without murmurs, gallops, or rubs. RESPIRATORY: Breath sounds clear and equal bilaterally. No accessory muscle use. GASTROINTESTINAL: Abdomen soft, non-tender, nondistended. No palpable masses. No suprapubic tenderness. Active bowel sounds. RECTAL EXAM: No masses, hemorrhoids, impaction or tenderness. Stool is brown. Guaiac negative. MUSCULOSKELETAL: No cyanosis, or edema. BACK: No obvious deformity. No CVA tenderness. Mild TTP of the medial edge of left scapula. Data Data Last Documented VS Vital Signs Date Time Temp Pulse Resp B/P Pulse Ox O2 Delivery O2 Flow Rate FiO2 02/16/17 10:39 98.8 88 20 154/74 99 Room Air Orders Abdomen, Upright Only (02/16/17 11:23) Scapula (02/16/17 ) MDM Medical Decision Making Medical Screen Exam Complete: Yes Emergency Medical Condition: Yes Differential Diagnosis Fecal impaction versus chronic constipation versus ileus versus bowel obstruction versus other Narrative Course 86-year-old female presents to the ED for evaluation of intermittent constipation the patient 3 weeks. Patient states last bowel movement was yesterday, described as "normal." States that she attempted to insert a suppository but "it wouldn't go." Patient is unsure if she ever had a colonoscopy. Patient also complains of left scapular pain, worsened by certain movements. She can identify no acute injury. Vitals reviewed. Physical exam reveals a nontoxic-appearing black female in no acute distress. Abdominal exam is completely benign. Rectal exam reveals no fecal impaction. Guaiac negative. She does have point tenderness on the medial aspect of the left scapula but range of motion is preserved. Upright x-ray of the abdomen reveals no bowel obstruction or constipation. X-ray of the scapula is normal for the patient's age. She has primary care and outpatient follow-up. I don't feel any further investigation is warranted at this time. I prescribed a stool softener, a stool bulking agent and a gentle laxative. Dr. Chacon attempted to explain administration of these to the patient but she was very anxious to leave. The patient is instructed to follow up with GI and the primary care. She indicated understanding of the instructions and is agreeable to the plan. The patient is stable and discharged home. Diagnosis Primary Impression: Intermittent constipation Referrals: [facility] Director Primary Care Physician Patient Instructions: Constipation (ED), General Instructions Additional Instructions: Rest, hydrate. Take psyllium powder daily to encourage regular bowel movements. Take Colace and/or bisacodyl if no bowel movement for two days. Stop taking colace and bisacodyl after BM is produced. Stay active and hydrated to encourage daily BMs. Follow up with the primary care provider. Return to the Ed for any urgent or emergent medical condition. Med/Other Pt SpecificInfo: Prescription(s) given Scripts Docusate Calcium (Stool Softener)240 Mg [id number] Mg PO DAILY #15 Prov:Leandra Chacon MD 02/16/17 Bisacodyl (Gentle Laxative DR)5 Mg Tabdr5 Mg PO DAILY PRN (CONSTIPATION) #20 TAB Ref 0 Prov:Leandra Chacon MD 02/16/17 Psyllium Powder 1 Pow Pow1 Scoop PO TID PRN (CONSTIPATION) 14 Days Ref 0 1 rounded TEASPOON in 8 oz of liquid at the first sign of irregularity. Prov:Leandra Chacon MD 02/16/17 Disposition: 01 DISCHARGE HOME Condition: Stable Sharon Taylor Feb 16, 2017 11:09
--- NOTE | 2017-02-16 12:08 | RADRPT ---
EXAM DATE/TIME: 02/16/2017 11:46 [facility] COMPARISON: No previous studies available for comparison. INDICATIONS : Abdominal pain and constipation. MEDICAL HISTORY : None. SURGICAL HISTORY : None. ENCOUNTER: Initial ACUITY: 2 weeks PAIN SCORE: 10/10 LOCATION: Bilateral abdomen FINDINGS: A single erect view of the abdomen demonstrates the lower lungs to be clear. No evidence of free int raperitoneal gas. The visualized bowel loops are unremarkable. Postsurgical changes lower abdomen. C alcified leiomyoma. CONCLUSION: No acute abdomen on these. Venkata Carrero MD on February 16, 2017 at 12:06 Board Certified Radiologist. This report was verified electronically.
--- NOTE | 2017-02-16 12:08 | RADRPT ---
EXAM DATE/TIME: 02/16/2017 11:50 [facility] COMPARISON: No previous studies available for comparison. INDICATIONS : left scapular pain. No known injury. MEDICAL HISTORY : None. SURGICAL HISTORY : None. ENCOUNTER: Initial ACUITY: 4 - 6 days PAIN SCORE: 10/10 LOCATION: Left posterior scapula FINDINGS: Two view examination of the left scapula demonstrates no evidence of fracture. The glenohumeral and acromioclavicular joints are maintained. Bony mineralization is normal. CONCLUSION: No fracture.. Venkata Carrero MD on February 16, 2017 at 12:06 Board Certified Radiologist. This report was verified electronically.
[2017-02-16] MEDS ORDERED: GENT5TAB PO ×2 (13:01→13:03)
[2017-02-16] MEDS ORDERED: PSYLPOW4 PO ×2 (13:01→13:03)
[2017-02-16] MEDS ORDERED: DOCU1CAP25 PO ×2 (13:01→13:03)
== END 2017-02-16 13:12 | disposition home or self-care (01) ==
LOC: NEPE 10:37
DX: K59.00 Constipation, unspecified (principal)
CPT/HCPCS: 73010; 74000; 99284

== ENCOUNTER 2017-04-15 10:57 | Emergency (ER) | payer OTHER ==
[~2017-04-15] VITALS: Ht 182.9 cm; Wt 85.0 kg
[~2017-04-15 10:57] MED LIST changes: +CHOL1CAP14 PO; +DOCU1CAP25 PO; +GENT5TAB PO; +MULT-116 PO; +PSYLPOW4 PO
[2017-04-15 10:59] VITALS: BP 140/65; PULSE 86; RESP 15; TEMP 98.4; O2SAT 98
--- NOTE | 2017-04-15 12:02 | RADRPT ---
EXAM DATE/TIME: 04/15/2017 11:35 [facility] COMPARISON: CHEST SINGLE AP, January 24, 2017, 10:02. INDICATIONS : No chest complaint. MEDICAL HISTORY : Asthma SURGICAL HISTORY : None. ENCOUNTER: Initial ACUITY: 4 - 6 days PAIN SCORE: 5/10 LOCATION: Bilateral chest FINDINGS: A single view of the chest demonstrates the lungs to be symmetrically aerated without evidence of mas s, infiltrate or effusion. The cardiomediastinal contours are unremarkable. Osseous structures are intact. CONCLUSION: 1. No acute cardiopulmonary disease. Ulysses Swenson MD on April 15, 2017 at 12:00 Board Certified Radiologist. This report was verified electronically.
--- NOTE | 2017-04-15 12:16 | PD ---
HPI . left shoulder pain and left sided rib pain x 1.5 mts Chief Complaint: Injury Time Seen by Provider: 12:16 Travel History International Travel<30 days: No Contact w/Intl Traveler<30days: No Traveled to known affect area: No History of Present Illness HPI 86-year-old female here with complaints of left shoulder pain and left-sided rib pain for approximately 1-1/2 months. Patient tells me that she feels a soreness mainly in her left shoulder and the left upper rib cage. She tells me is been going on for quite some time and she has already seen her primary care doctor who gave her some type of ointment to rub on her body. Despite using the ointment, she still has mild aching and wants to know if anything is wrong. She tells me they did not xray her. She denies any recent injury. She has no other complaints. PFSH Past Medical History Arthritis: Yes Asthma: Yes Autoimmune Disease: No Blood Disorders: No Heart Rhythm Problems: No Cancer: No Cardiac Catheterization: No Cardiovascular Problems: No High Cholesterol: No Chemotherapy: No Congestive Heart Failure: No Diabetes: No Diminished Hearing: No Endocrine: No Gastrointestinal Disorders: No Genitourinary: Yes (FIBROID TUMORS) Heparin Induced Thrombocytopen: No Hypertension: No Musculoskeletal: No Neurologic: No Psychiatric: No Reproductive: No Respiratory: Yes (asthma) Immunizations Current: No Migraines: Yes Radiation Therapy: No Menopausal: Yes Dilation and Curettage (D&C): Yes (WITH HYSTROSCOPY 03-16-11) Past Surgical History Coronary Artery Bypass Graft: No Hysterectomy: Yes Tonsillectomy: Yes Other Surgery: No Family History Family Myocardial Infarction: No Social History Alcohol Use: No Tobacco Use: No Substance Use: No Allergies-Medications (Allergen,Severity, Reaction): Coded Allergies: codeine (Unverified Allergy, Severe, STOMACH PAIN, 03/14/17) iodine (Unverified Allergy, Severe, 03/14/17) potassium iodide (Unverified Allergy, Severe, 03/14/17) povidone-iodine (Unverified Allergy, Severe, 03/14/17) sodium iodide (Unverified Allergy, Severe, 03/14/17) sodium iodide (Unverified Allergy, Severe, 03/14/17) Reported Meds & Prescriptions Reported Meds & Active Scripts Active Stool Softener (Docusate Calcium) 240 Mg Cap 240 Mg PO DAILY Gentle Laxative DR (Bisacodyl) 5 Mg Tabdr 5 Mg PO DAILY PRN Psyllium Powder 1 Pow Pow 1 Scoop PO TID PRN 14 Days 1 rounded TEASPOON in 8 oz of liquid at the first sign of irregularity. Reported D3 Maximum Strength (Cholecalciferol) 5,000 Unit Cap 5,000 Units PO DAILY Yariel Mag Zinc + D3 (Multiple Vitamins W/ Minerals) 1 Tab 1 Tab PO DAILY Symbicort Inh (Budesonide/Formoterol Fumarate) 80-4.5 Mcg/Act Aero 2 Puff INH Q12HR Review of Systems General / Constitutional: No: Fever Eyes: No: Visual changes HENT: No: Headaches Cardiovascular: No: Chest Pain or Discomfort Respiratory: No: Shortness of Breath Gastrointestinal: No: Abdominal Pain Genitourinary: No: Dysuria Musculoskeletal: Positive: Pain (left shoulder/rib pain) Skin: No Rash Neurologic: No: Weakness Psychiatric: No: Depression Endocrine: No: Polydipsia Hematologic/Lymphatic: No: Easy Bruising Physical Exam Narrative GENERAL: AAO x 3, no acute distress, Well-nourished, well-developed patient. SKIN: Warm and dry. No visible rashes or bruising. no bruising of left shoulder or rib cage HEAD: Normocephalic and atraumatic. EYES: No scleral icterus. No injection or drainage. ENT: No nasal drainage noted. Mucous membranes pink. Airway patent. NECK: Supple, trachea midline. No JVD. CARDIOVASCULAR: Regular rate and rhythm without murmurs, gallops, or rubs. RESPIRATORY: Breath sounds equal bilaterally. No accessory muscle use. No rhonchi or rales. no pain with palpation to the rib cage GASTROINTESTINAL: Abdomen soft, non-tender, nondistended. no rebound or guarding EXTREMITIES: No cyanosis or edema. Full ROM of b/l shoulder. No pain with internal and external rotation. no evidence of dislocation BACK: No obvious deformity. NEURO: CN II-12 intact, overlock waistline joiner strength normal b/l, UE and LE 5/5, no focal deficits PSYCH: AAO x 3, normal affect. Data Data Last Documented VS Vital Signs Date Time Temp Pulse Resp B/P (MAP) Pulse Ox O2 Delivery O2 Flow Rate FiO2 04/15/17 11:55 72 16 99 Room Air 04/15/17 10:59 98.4 140/65 (90) Orders Orders Chest, Single Ap (04/15/17 11:07) Shoulder, Complete (>2vws) (04/15/17 ) [facility] Medical Decision Making Medical Screen Exam Complete: Yes Emergency Medical Condition: Yes Medical Record Reviewed: Yes Differential Diagnosis Arthritis, rheumatoid arthritis, muscle strain, less likely fracture Narrative Course 86-year-old female here with left shoulder and left-sided rib pain. On examination there are no gross abnormalities. She has full range of motion of her bilateral shoulders. She does not have any tenderness to palpation of her rib cage. She denies any chest pain, nausea, vomiting, shortness breath or diaphoresis. X-ray imaging was ordered in triage. Results are negative other than some arthritic findings. I recommend she follow-up with her primary care provider. I advised to try over -the-counter Tylenol and ibuprofen as needed for pain. Last Impressions Chest X-Ray 04/15/17 1107 Signed Impressions: Service Date/Time: Saturday, April 15, 2017 11:35 - CONCLUSION: 1. No acute cardiopulmonary disease. Ulysses Swenson MD Shoulder X-Ray 04/15/17 0000 Signed Impressions: Service Date/Time: Saturday, April 15, 2017 11:31 - CONCLUSION: 1. No acute fracture or dislocation. 2. Mild degenerative osteoarthritis. Ulysses Swenson MD Patient verbalized understanding of instructions, questions were answered, and thanked me for their care. I advised them if their condition worsens, please return to the nearest emergency room for further care. Diagnosis Primary Impression: Shoulder pain, left Qualified Codes: M25.512 - Pain in left shoulder; G89.29 - Other chronic pain Patient Instructions: General Instructions Additional Instructions: Please return to emergency department if your symptoms return or worsen. Follow up with your primary care provider. Try [id number] Tylenol or Motrin as needed for pain. Use the instructions on the bottles and package inserts. Med/Other Pt SpecificInfo: No Change to Meds Disposition: 01 DISCHARGE HOME Condition: Stable Ling Marinelli Apr 15, 2017 12:16
--- NOTE | 2017-04-15 12:19 | RADRPT ---
EXAM DATE/TIME: 04/15/2017 11:31 [facility] COMPARISON: No previous studies available for comparison. INDICATIONS : Shoulder pain with no known injuries. MEDICAL HISTORY : Asthma. SURGICAL HISTORY : None. ENCOUNTER: Initial ACUITY: 3 weeks PAIN SCORE: 5/10 LOCATION: Left Shoulder. FINDINGS: Multiple view examination of the left shoulder demonstrates no evidence of fracture or dislocation. The glenohumeral and acromioclavicular joints are anatomic. There is mild joint space narrowing and osteophyte formation involving the glenohumeral and acromioclavicular joints. There is normal range o f motion between internal and external rotation. Bony mineralization is normal. CONCLUSION: 1. No acute fracture or dislocation. 2. Mild degenerative osteoarthritis. Ulysses Swenson MD on April 15, 2017 at 12:16 Board Certified Radiologist. This report was verified electronically.
== END 2017-04-15 12:49 | disposition home or self-care (01) ==
LOC: NEPD 10:57
DX: M19.012 Primary osteoarthritis, left shoulder (principal); J45.909 Unspecified asthma, uncomplicated; Z79.899 Other long term (current) drug therapy; Z88.5 Allergy status to narcotic agent; Z88.8 Allergy status to other drugs, medicaments and biological substances
CPT/HCPCS: 71010; 73030; 99284

== ENCOUNTER 2017-10-08 13:45 | Emergency (ER) | payer OTHER ==
[~2017-10-08] VITALS: Ht 182.9 cm; Wt 75.0 kg
[~2017-10-08 13:45] MED LIST changes: -CHOL1CAP14 PO; +D 50CAP2 PO
[2017-10-08 14:04] VITALS: BP 149/64; PULSE 98; RESP 18; TEMP 99.2; O2SAT 100
[2017-10-08] MEDS ORDERED: ACETAMINOPHEN/HYDROcodone 325 MG/5 MG TAB PO ONE (16:15)
[2017-10-08] MEDS ORDERED: HYDR-3516 PO (16:29)
--- NOTE | 2017-10-08 16:29 | PD ---
HPI Chief Complaint: Back/ Neck Pain or Injury Time Seen by Provider: 15:55 Travel History International Travel<30 days: No Contact w/Intl Traveler<30days: No Traveled to known affect area: No History of Present Illness HPI 87-year-old female arrives with left thoracic back pain for about 1 day. She reports similar prior episode occurred about 1 year ago. She denies injury. She has no pleuritic pain associated with it. Has been no fever. She denies insect bite, other potential etiology that she can identify. Timing constant. Severity mild to moderate. PFSH Past Medical History Arthritis: Yes Asthma: Yes Autoimmune Disease: No Blood Disorders: No Heart Rhythm Problems: No Cancer: No Cardiac Catheterization: No Cardiovascular Problems: No High Cholesterol: No Chemotherapy: No Congestive Heart Failure: No Diabetes: No Diminished Hearing: No Endocrine: No Gastrointestinal Disorders: No Genitourinary: Yes (FIBROID TUMORS) Heparin Induced Thrombocytopen: No Hypertension: No Musculoskeletal: No Neurologic: No Psychiatric: No Reproductive: No Respiratory: Yes (asthma) Immunizations Current: No Migraines: Yes Radiation Therapy: No Menopausal: Yes Dilation and Curettage (D&C): Yes (WITH HYSTROSCOPY 03-16-11) Past Surgical History Coronary Artery Bypass Graft: No Hysterectomy: Yes Tonsillectomy: Yes Other Surgery: No Social History Alcohol Use: No Tobacco Use: No Substance Use: No Allergies-Medications (Allergen,Severity, Reaction): Coded Allergies: codeine (Unverified Allergy, Severe, STOMACH PAIN, 10/08/17) iodine (Unverified Allergy, Severe, 10/08/17) potassium iodide (Unverified Allergy, Severe, 10/08/17) povidone-iodine (Unverified Allergy, Severe, 10/08/17) sodium iodide (Unverified Allergy, Severe, 10/08/17) sodium iodide (Unverified Allergy, Severe, 10/08/17) Reported Meds & Prescriptions Reported Meds & Active Scripts Active Lidoderm (Lidocaine) 5 % Adh..patch 1 Patch TOPICAL DAILY Hydrocodone-Acetaminophen 5-325 mg Tab 1 Tab PO Q6H PRN Stool Softener (Docusate Calcium) 240 Mg Cap 240 Mg PO DAILY Gentle Laxative DR (Bisacodyl) 5 Mg Tabdr 5 Mg PO DAILY PRN Psyllium Powder 1 Pow Pow 1 Scoop PO TID PRN 14 Days 1 rounded TEASPOON in 8 oz of liquid at the first sign of irregularity. Reported D3 Maximum Strength (Cholecalciferol) 5,000 Unit Cap 5,000 Units PO DAILY Yariel Mag Zinc + D3 (Multiple Vitamins W/ Minerals) 1 Tab 1 Tab PO DAILY Symbicort Inh (Budesonide/Formoterol Fumarate) 80-4.5 Mcg/Act Aero 2 Puff INH Q12HR Review of Systems Except as stated in HPI: all other systems reviewed are Neg General / Constitutional: No: Fever Physical Exam Narrative GENERAL: 87-year-old female pleasant well-nourished well-developed no acute distress Vital Signs Date Time Temp Pulse Resp B/P (MAP) Pulse Ox O2 Delivery O2 Flow Rate FiO2 10/08/17 14:04 99.2 98 18 149/64 (92) 100 SKIN: Warm and dry. HEAD: Atraumatic. Normocephalic. EYES: Pupils equal and round. No scleral icterus. No injection or drainage. ENT: No nasal bleeding or discharge. Mucous membranes pink and moist. NECK: Trachea midline. No JVD. CARDIOVASCULAR: Regular rate and rhythm. RESPIRATORY: No accessory muscle use. Clear to auscultation. Breath sounds equal bilaterally. GASTROINTESTINAL: Soft. Left thoracic back is normal in appearance without TTP. MUSCULOSKELETAL: Extremities without clubbing, cyanosis, or edema. No obvious deformities. NEUROLOGICAL: Awake and alert. No obvious cranial nerve deficits. Motor grossly within normal limits. Five out of 5 muscle strength in the arms and legs. Normal speech. PSYCHIATRIC: Appropriate mood and affect; insight and judgment normal. Data Data Last Documented VS Vital Signs Date Time Temp Pulse Resp B/P (MAP) Pulse Ox O2 Delivery O2 Flow Rate FiO2 10/08/17 17:45 99 Room Air 10/08/17 14:04 99.2 98 18 149/64 (92) Orders Orders Acetamin-Hydrocod 325-5 Mg ([place] 5-325 (10/08/17 16:15) Chest, Pa & Lat (10/08/17 ) Electrocardiogram (10/08/17 16:55) Basic Metabolic Panel (Bmp) (10/08/17 16:55) Complete Blood Count With Diff (10/08/17 16:55) Ecg Monitoring (10/08/17 16:55) Bilateral Bp Monitoring (10/08/17 16:55) Iv Access Insert/Monitor (10/08/17 16:55) Oximetry (10/08/17 16:55) Oxygen Administration (10/08/17 16:55) Sodium Chloride 0.9% Flush (Ns Flush) (10/08/17 17:00) Ct Thorax/ Chest Wo Iv Contras (10/08/17 17:07) Ed Discharge Order (10/08/17 18:06) Labs Laboratory Tests Test 10/08/17 17:40 White Blood Count 5.7 TH/MM3 Red Blood Count 3.58 MIL/MM3 Hemoglobin 10.3 GM/DL Hematocrit 30.3 % Mean Corpuscular Volume 84.7 FL Mean Corpuscular Hemoglobin 28.8 PG Mean Corpuscular Hemoglobin Concent 34.0 % Red Cell Distribution Width 13.6 % Platelet Count 143 TH/MM3 Mean Platelet Volume 10.1 FL Neutrophils (%) (Auto) 70.4 % Lymphocytes (%) (Auto) 19.8 % Monocytes (%) (Auto) 5.5 % Eosinophils (%) (Auto) 2.8 % Basophils (%) (Auto) 1.5 % Neutrophils # (Auto) 4.0 TH/MM3 Lymphocytes # (Auto) 1.1 TH/MM3 Monocytes # (Auto) 0.3 TH/MM3 Eosinophils # (Auto) 0.2 TH/MM3 Basophils # (Auto) 0.1 TH/MM3 CBC Comment DIFF FINAL Differential Comment Blood Urea Nitrogen 15 MG/DL Creatinine 1.37 MG/DL Random Glucose 107 MG/DL Calcium Level 8.7 MG/DL Sodium Level 141 MEQ/L Potassium Level 3.2 MEQ/L Chloride Level 108 MEQ/L Carbon Dioxide Level 26.1 MEQ/L Anion Gap 7 MEQ/L Estimat Glomerular Filtration Rate 44 ML/MIN [facility] Medical Decision Making Medical Screen Exam Complete: Yes Emergency Medical Condition: Yes Medical Record Reviewed: Yes Differential Diagnosis Pneumothorax, dissection, herpetic neuralgia, acute on chronic pain, muscle spasm Narrative Course CBC & BMP Diagram 10/08/17 17:40 Calcium Level 8.7 Last [address] 10/08/17 1077 Signed Impressions: Service Date/Time: Sunday, October 08, 2017 17:24 - CONCLUSION: 1. No acute findings within the thorax. No pleural effusion. Trace pericardial fluid. 2. Large splenic lesions as above. Differential diagnosis includes splenic masses or complex cysts. Remigio Magana MD Chest X-Ray 10/08/17 0000 Signed Impressions: Service Date/Time: Sunday, October 08, 2017 16:22 - CONCLUSION: 1. No acute findings. Tortuous aorta. Remigio Magana MD Case discussed with Dr. Galvez who will follow-up and disposition the patient Diagnosis Primary Impression: Pain, upper back Referrals: Primary Care Physician Med/Other Pt SpecificInfo: Prescription(s) given Scripts Lidocaine (Lidoderm) 5 % Adh..patch 1 PATCH TOPICAL DAILY for Pain, #14 Prov: Jose Carlos Galvez MD 10/08/17 Hydrocodone-Acetaminophen (Hydrocodone-Acetaminophen) 5-325 mg Tab 1 TAB PO Q6H Y for PAIN, #12 TAB 0 Refills Prov: Agus Chavez MD 10/08/17 Disposition: 01 DISCHARGE HOME Condition: Stable Agus Chavez MD Oct 08, 2017 16:29
--- NOTE | 2017-10-08 16:59 | RADRPT ---
EXAM DATE/TIME: 10/08/2017 16:22 [facility] COMPARISON: No previous studies available for comparison. INDICATIONS : Left posterior chest wall pain with no known injury. MEDICAL HISTORY : Seizures, Asthma, Fibroid tumors, Arthritis, Osteoarthritis. SURGICAL HISTORY : Hysterectomy. Tonsillectomy. ENCOUNTER: Initial ACUITY: 2 days PAIN SCORE: 10/10 LOCATION: Bilateral chest Left posterior. FINDINGS: PA and lateral views of the chest demonstrate the lungs to be symmetrically aerated without evidence of mass, infiltrate or effusion. The cardiomediastinal contours are unremarkable. Osseous structure s are intact. CONCLUSION: 1. No acute findings. Tortuous aorta. Remigio Magana MD on October 08, 2017 at 16:57 Board Certified Radiologist. This report was verified electronically.
[2017-10-08] MEDS ORDERED: SODIUM CHLORIDE 0.9% FLUSH 10 ML FLUSH IVF PRN (17:00)
--- NOTE | 2017-10-08 17:25 | PD ---
Physical Exam Narrative Patient was seen by ED physician and signed out to me. Data Data Last Documented VS Vital Signs Date Time Temp Pulse Resp B/P (MAP) Pulse Ox O2 Delivery O2 Flow Rate FiO2 10/08/17 17:45 99 Room Air 10/08/17 14:04 99.2 98 18 149/64 (92) Orders Orders Acetamin-Hydrocod 325-5 Mg ([place] 5-325 (10/08/17 16:15) Chest, Pa & Lat (10/08/17 ) Electrocardiogram (10/08/17 16:55) Basic Metabolic Panel (Bmp) (10/08/17 16:55) Complete Blood Count With Diff (10/08/17 16:55) Ecg Monitoring (10/08/17 16:55) Bilateral Bp Monitoring (10/08/17 16:55) Iv Access Insert/Monitor (10/08/17 16:55) Oximetry (10/08/17 16:55) Oxygen Administration (10/08/17 16:55) Sodium Chloride 0.9% Flush (Ns Flush) (10/08/17 17:00) Ct Thorax/ Chest Wo Iv Contras (10/08/17 17:07) MDM Supervised Visit with SARAI: No Interpretation(s) 1724 PM. Last Impressions Chest X-Ray 10/08/17 0000 Signed Impressions: Service Date/Time: Sunday, October 08, 2017 16:22 - CONCLUSION: 1. No acute findings. Tortuous aorta. Remigio Magana MD [address] thorax without contrast shows no acute pathology. Possible splenic cyst. Narrative Course Patient was seen by ED physician and signed out to me. Diagnosis Primary Impression: Pain, upper back Referrals: Primary Care Physician Patient Instructions: General Instructions Departure Forms: Tests/Procedures Additional Instruction: Take medication as directed for pain. Follow-up with personal physician. Return immediately if any rash. Scripts Lidocaine (Lidoderm) 5 % Adh..patch 1 PATCH TOPICAL DAILY for Pain, #14 Prov: Jose Carlos Galvez MD 10/08/17 Hydrocodone-Acetaminophen (Hydrocodone-Acetaminophen) 5-325 mg Tab 1 TAB PO Q6H Y for PAIN, #12 TAB 0 Refills Prov: Agus Chavez MD 10/08/17 Disposition: 01 DISCHARGE HOME Condition: Stable Jose Carlos Galvez MD Oct 08, 2017 17:25
--- NOTE | 2017-10-08 17:40 | RADRPT ---
EXAM DATE/TIME: 10/08/2017 17:24 [facility] COMPARISON: No previous studies available for comparison. INDICATIONS : Back pain for one year; worsening today. RADIATION DOSE: 10.71 CTDIvol (mGy) MEDICAL HISTORY : Seizures. Osteoarthritis. Renal disease SURGICAL HISTORY : Hysterectomy. ENCOUNTER: Initial ACUITY: 1 yr PAIN SCALE: 7/10 LOCATION: chest TECHNIQUE: Volumetric scanning of the chest was performed. Using automated exposure control and adjustment of t he mA and/or kV according to patient size, radiation dose was kept as low as reasonably achievable to obtain optimal diagnostic quality images. DICOM format image data is available electronically for r eview and comparison. Follow-up recommendations for detected pulmonary nodules are based at a minimum on nodule size and pa tient risk factors according to Fleischner Society Guidelines. FINDINGS: No focal lung consolidation. Minimal dependent atelectasis in the lungs. No pleural effusion. Trace p ericardial fluid. Upper abdomen reveals low attenuation lesions in the spleen measuring up to 4.7 cm anteriorly and 4.8 cm posteriorly. These are of uncertain etiology. Cannot exclude solid masses versus complex cysts. CONCLUSION: 1. No acute findings within the thorax. No pleural effusion. Trace pericardial fluid. 2. Large splenic lesions as above. Differential diagnosis includes splenic masses or complex cysts. Remigio Magana MD on October 08, 2017 at 17:35 Board Certified Radiologist. This report was verified electronically.
[2017-10-08 17:45] VITALS: O2SAT 99
[2017-10-08 18:06] LABS: BASOPHIL # 0.1 TH/MM3 (0-0.2); BASOPHIL % 1.5 % (0.0-2.0); EOSINOPHIL # 0.2 TH/MM3 (0-0.4); EOSINOPHIL % 2.8 % (0.0-4.0); HEMATOCRIT 30.3 % (35.0-46.0); HEMOGLOBIN 10.3 GM/DL (11.6-15.3); LYMPH % 19.8 % (9.0-44.0); LYMPHOCYTE # 1.1 TH/MM3 (1.0-4.8); MEAN CELL VOLUME 84.7 FL (80.0-100.0); MEAN CORPUSCULAR HEMOGLOBIN 28.8 PG (27.0-34.0); MEAN PLATELET VOLUME 10.1 FL (7.0-11.0); MONO % 5.5 % (0.0-8.0); MONOCYTE # 0.3 TH/MM3 (0-0.9); NEUT % 70.4 % (16.0-70.0); PLATELET COUNT 143 TH/MM3 (150-450); RED BLOOD COUNT 3.58 MIL/MM3 (4.00-5.30); RED CELL DISTRIBUTION WIDTH 13.6 % (11.6-17.2); WHITE BLOOD COUNT 5.7 TH/MM3 (4.0-11.0)
[2017-10-08] MEDS ORDERED: LIDO1ADH4 TOPICAL (18:06)
[2017-10-08 18:29] LABS: BICARBONATE 26.1 MEQ/L (21.0-32.0); CALCIUM 8.7 MG/DL (8.5-10.1); CREATININE 1.37 MG/DL (0.50-1.00)
--- NOTE | 2017-10-09 18:32 | EKG ---
Date Performed: 10/08/2017 Time Performed: 17:38:15 PTAGE: 87 years EKG: Sinus rhythm NORMAL ECG PREVIOUS TRACING : 01/24/2017 16.22 Since the prior tracing, there has been no significant vasquez DOCTOR: Jo Acuna Interpretating Date/Time 10/09/2017 18:30:00
== END 2017-10-08 18:25 | disposition home or self-care (01) ==
LOC: NEPD 13:45
DX: M54.6 Pain in thoracic spine (principal); R07.89 Other chest pain
CPT/HCPCS: 71046; 71250; 80048; 85025; 93005; 99285

== ENCOUNTER 2017-12-15 11:22 | Inpatient (IN) | payer MEDICARE, OTHER ==
[~2017-12-15] VITALS: Ht 185.4 cm; Wt 70.0 kg
[~2017-12-15 11:22] MED LIST changes: +HYDR-3516 PO; +LIDO1ADH4 TOPICAL
[2017-12-15 11:33] VITALS: BP 137/60; PULSE 81; RESP 18; TEMP 97.7; O2SAT 99
[2017-12-15] MEDS ORDERED: SODIUM CHLORIDE 0.9% FLUSH 10 ML FLUSH IVF PRN (12:00)
--- NOTE | 2017-12-15 12:03 | PD ---
HPI Chief Complaint: GI Complaint Time Seen by Provider: 11:43 Travel History International Travel<30 days: No Contact w/Intl Traveler<30days: No Traveled to known affect area: No History of Present Illness HPI 87-year-old female presents to the emergency department for evaluation of abdominal pain, GI bleed. According the patient, she was experiencing abdominal pain. She felt constipated attempted to manually disimpact herself. She states that she stuck her finger up there first and then stuck a cloth upper rectum does disimpact herself. According to EMS, when her hospice nurse came, she had some bright red blood on the towel with her bowel movements over 911 was called. The patient denies having rectal bleeding and states it was "candy". According to EMS, the patient is on hospice for "dementia". When I asked the patient why she was on hospice, she states "I do not know". The patient is alert and oriented to person and place only. She is unsure of the month and the year. She does not know the president. The patient denies any headache. No chest pain shortness breath. She denies any abdominal pain at this time. She denies nausea, vomiting, diarrhea. Moderate severity. PFSH Past Medical History Arthritis: Yes Asthma: Yes Autoimmune Disease: No Blood Disorders: No Heart Rhythm Problems: No Cancer: No Cardiac Catheterization: No Cardiovascular Problems: No High Cholesterol: No Chemotherapy: No Congestive Heart Failure: No Diabetes: No Diminished Hearing: No Endocrine: No Gastrointestinal Disorders: No Genitourinary: Yes (FIBROID TUMORS) Heparin Induced Thrombocytopen: No Hypertension: No Musculoskeletal: No Neurologic: No Psychiatric: No Reproductive: No Respiratory: Yes (asthma) Immunizations Current: No Migraines: Yes Radiation Therapy: No ?: Not Menopausal: Yes Dilation and Curettage (D&C): Yes (WITH HYSTROSCOPY 03-16-11) Past Surgical History Coronary Artery Bypass Graft: No Hysterectomy: Yes Tonsillectomy: Yes Other Surgery: No Family History Family Myocardial Infarction: No Social History Alcohol Use: No Tobacco Use: No Substance Use: No Allergies-Medications (Allergen,Severity, Reaction): Coded Allergies: codeine (Unverified Allergy, Severe, STOMACH PAIN, 10/08/17) iodine (Unverified Allergy, Severe, 10/08/17) potassium iodide (Unverified Allergy, Severe, 10/08/17) povidone-iodine (Unverified Allergy, Severe, 10/08/17) sodium iodide (Unverified Allergy, Severe, 10/08/17) sodium iodide (Unverified Allergy, Severe, 10/08/17) Reported Meds & Prescriptions Reported Meds & Active Scripts Active Lidoderm (Lidocaine) 5 % Adh..patch 1 Patch TOPICAL DAILY Hydrocodone-Acetaminophen 5-325 mg Tab 1 Tab PO Q6H PRN Stool Softener (Docusate Calcium) 240 Mg Cap 240 Mg PO DAILY Gentle Laxative DR (Bisacodyl) 5 Mg Tabdr 5 Mg PO DAILY PRN Psyllium Powder 1 Pow Pow 1 Scoop PO TID PRN 14 Days 1 rounded TEASPOON in 8 oz of liquid at the first sign of irregularity. Reported D3 Maximum Strength (Cholecalciferol) 5,000 Unit Cap 5,000 Units PO DAILY Yariel Mag Zinc + D3 (Multiple Vitamins W/ Minerals) 1 Tab 1 Tab PO DAILY Symbicort Inh (Budesonide/Formoterol Fumarate) 80-4.5 Mcg/Act Aero 2 Puff INH Q12HR Review of Systems Except as stated in HPI: all other systems reviewed are Neg Physical Exam Narrative GENERAL: Well-nourished, well-developed elderly female patient, afebrile. SKIN: Focused skin assessment warm/dry. HEAD: Normocephalic. Atraumatic. EYES: No scleral icterus. No injection or drainage. NECK: Supple, trachea midline. No JVD or lymphadenopathy. CARDIOVASCULAR: Regular rate and rhythm without murmurs, gallops, or rubs. RESPIRATORY: Breath sounds equal bilaterally. No accessory muscle use. Lung sounds are clear to auscultation peer GASTROINTESTINAL: Abdomen soft, non-tender, nondistended. MUSCULOSKELETAL: No cyanosis, or edema. BACK: Nontender without obvious deformity. No CVA tenderness. RECTAL EXAM: No masses or tenderness, bright red blood is obtained. Hemoccult is positive. This exam was done with YUNIOR Duke, at bedside. No evidence of rectal impaction. Data Data Last Documented VS Vital Signs Date Time Temp Pulse Resp B/P (MAP) Pulse Ox O2 Delivery O2 Flow Rate FiO2 12/15/17 12:08 18 98 Room Air 12/15/17 11:33 97.7 81 Orders Orders Complete Blood Count With Diff (12/15/17 11:56) Comprehensive Metabolic Panel (12/15/17 11:56) Lipase (12/15/17 11:56) Prothrombin Time / Inr (Pt) (12/15/17 11:56) Act Partial Throm Time (Ptt) (12/15/17 11:56) Urinalysis - C+S If Indicated (12/15/17 11:56) Ecg Monitoring (12/15/17 11:56) Iv Access Insert/Monitor (12/15/17 11:56) Oximetry (12/15/17 11:56) Sodium Chloride 0.9% Flush (Ns Flush) (12/15/17 12:00) Ct Abd/Pel W/O Iv Contrast (12/15/17 ) Sodium Chlorid 0.9% 500 Ml Inj (Ns 500 M (12/15/17 12:15) Place In Observation (12/15/17 ) Vital Signs (Adult) Q4H (12/15/17 14:56) Diet Heart Healthy (12/15/17 Dinner) Sodium Chloride 0.9% Flush (Ns Flush) (12/15/17 15:00) Sodium Chloride 0.9% Flush (Ns Flush) (12/15/17 21:00) Metoclopramide Inj (Reglan Inj) (12/15/17 15:00) Comprehensive Metabolic Panel (12/16/17 06:00) Complete Blood Count With Diff (12/16/17 06:00) Resp Oxygen Ras C Titrat 1-4 L (12/15/17 ) Pt Request For Service (12/15/17 14:56) Case Management Consult (12/15/17 14:56) Scd Bilateral/Knee High YOANA.BID (12/15/17 14:56) [place] Bilateral/Knee High YOANA.QSHIFT (12/15/17 14:56) Naloxone Inj (Narcan Inj) (12/15/17 15:00) Docusate Sodium-Senna (Rita-Colace) (12/15/17 21:00) Magnesium Hydroxide Liq (Milk Of Magnesi (12/15/17 15:00) Sennosides (Senokot) (12/15/17 15:00) Bisacodyl Supp (Dulcolax Supp) (12/15/17 15:00) Lactulose Liq (Lactulose Liq) (12/15/17 15:00) Admit Order (Ed Use Only) (12/15/17 14:56) Labs Laboratory Tests Test 12/15/17 12:00 12/15/17 14:34 White Blood Count 10.8 TH/MM3 Red Blood Count 3.99 MIL/MM3 Hemoglobin 11.2 GM/DL Hematocrit 34.1 % Mean Corpuscular Volume 85.4 FL Mean Corpuscular Hemoglobin 28.0 PG Mean Corpuscular Hemoglobin Concent 32.8 % Red Cell Distribution Width 13.4 % Platelet Count 153 TH/MM3 Mean Platelet Volume 10.7 FL Neutrophils (%) (Auto) 82.5 % Lymphocytes (%) (Auto) 10.2 % Monocytes (%) (Auto) 4.0 % Eosinophils (%) (Auto) 2.4 % Basophils (%) (Auto) 0.9 % Neutrophils # (Auto) 8.9 TH/MM3 Lymphocytes # (Auto) 1.1 TH/MM3 Monocytes # (Auto) 0.4 TH/MM3 Eosinophils # (Auto) 0.3 TH/MM3 Basophils # (Auto) 0.1 TH/MM3 CBC Comment DIFF FINAL Differential Comment Prothrombin Time 11.0 SEC Prothromb Time International Ratio 1.1 RATIO Activated Partial Thromboplast Time 25.7 SEC Blood Urea Nitrogen 22 MG/DL Creatinine 1.33 MG/DL Random Glucose 100 MG/DL Total Protein 7.2 GM/DL Albumin 3.7 GM/DL Calcium Level 8.7 MG/DL Alkaline Phosphatase 72 U/L Aspartate Amino Transf (AST/SGOT) 15 U/L Alanine Aminotransferase (ALT/SGPT) 15 U/L Total Bilirubin 0.3 MG/DL Sodium Level 142 MEQ/L Potassium Level 3.6 MEQ/L Chloride Level 110 MEQ/L Carbon Dioxide Level 25.7 MEQ/L Anion Gap 6 MEQ/L Estimat Glomerular Filtration Rate 46 ML/MIN Lipase 155 U/L MDM Medical Decision Making Medical Screen Exam Complete: Yes Emergency Medical Condition: Yes Medical Record Reviewed: Yes Interpretation(s) Last Impressions Abdomen/Pelvis CT 12/15/17 0000 Signed Impressions: Service Date/Time: Friday, December 15, 2017 13:41 - CONCLUSION: 1. 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 2. Atherosclerosis. 3. Right renal cyst as well as a hyperdense hemorrhagic or proteinaceous cyst. 4. Left renal parapelvic cysts. 5. There are 2 masses in the spleen which are incompletely assessed on this study, but likely represent pseudocysts. 6. Diverticulosis. Isaias Chavez MD Differential Diagnosis Lower GI bleed versus upper GI bleed versus rectal abrasion versus anemia versus constipation Narrative Course 87-year-old female presents to the emergency department via EMS for evaluation of bright red blood per the rectum and abdominal pain. IV access obtained. CBC , CMP, lipase, PTT, PT/INR, UA ordered and pending. CT abdomen/pelvis without IV contrast is ordered and pending. CBC shows hemoglobin 11.2, hematocrit 34.1. CMP shows BUN 22, creatinine 1.33. Lipase is 155. Coags are unremarkable. UA is still pending. CT abdomen/ pelvis shows abnormal bowel wall thickening, atherosclerosis, right renal cyst, left renal parapelvic cyst, 2 masses in the spleen which likely represent pseudocyst, diverticulosis. I discussed this case my attending physician, Dr. Guzman. She recommends observation admission. [facility] is paged for admission. Dr. Sotelo accepted admission. Diagnosis Primary Impression: GI bleed Qualified Codes: K92.2 - Gastrointestinal hemorrhage, unspecified Admitting Information Admitting Physician Requests: Observation Trish Hernandez December 15, 2017 12:03
[2017-12-15 12:08] VITALS: RESP 18; O2SAT 98
[2017-12-15 12:08] LABS: AUTOMATED NEUTROPHIL # 8.9 TH/MM3 (1.8-7.7); BASOPHIL # 0.1 TH/MM3 (0-0.2); BASOPHIL % 0.9 % (0.0-2.0); EOSINOPHIL # 0.3 TH/MM3 (0-0.4); EOSINOPHIL % 2.4 % (0.0-4.0); HEMATOCRIT 34.1 % (35.0-46.0); HEMOGLOBIN 11.2 GM/DL (11.6-15.3); LYMPH % 10.2 % (9.0-44.0); LYMPHOCYTE # 1.1 TH/MM3 (1.0-4.8); MEAN CELL VOLUME 85.4 FL (80.0-100.0); MEAN CORPUSCULAR HGB CONC 32.8 % (32.0-36.0); MEAN PLATELET VOLUME 10.7 FL (7.0-11.0); MONOCYTE # 0.4 TH/MM3 (0-0.9); NEUT % 82.5 % (16.0-70.0); PLATELET COUNT 153 TH/MM3 (150-450); RED BLOOD COUNT 3.99 MIL/MM3 (4.00-5.30); RED CELL DISTRIBUTION WIDTH 13.4 % (11.6-17.2); WHITE BLOOD COUNT 10.8 TH/MM3 (4.0-11.0)
[2017-12-15] MEDS ORDERED: SODIUM CHLORID 0.9% 500 ML INJ 500 ML IV ONE (12:15)
[2017-12-15 12:16] LABS: INTERNATIONAL NORMALIZED RATIO 1.1 RATIO
[2017-12-15 12:56] LABS: ALBUMIN 3.7 GM/DL (3.4-5.0); ALKALINE PHOSPHATASE 72 U/L (45-117); ALT (GPT) 15 U/L (10-53); AST (GOT) 15 U/L (15-37); BLOOD UREA NITROGEN 22 MG/DL (7-18); CALCIUM 8.7 MG/DL (8.5-10.1); CREATININE 1.33 MG/DL (0.50-1.00); GLOMERULAR FILTRATION RATE 46 ML/MIN (>89); GLUCOSE,RANDOM 100 MG/DL (74-106); SODIUM (NA) 142 MEQ/L (136-145); TOTAL BILIRUBIN ADULT 0.3 MG/DL (0.2-1.0); TOTAL PROTEIN 7.2 GM/DL (6.4-8.2)
[2017-12-15 12:57] LABS: BICARBONATE 25.7 MEQ/L (21.0-32.0); CHLORIDE 110 MEQ/L (98-107)
--- NOTE | 2017-12-15 14:18 | RADRPT ---
EXAM DATE/TIME: 12/15/2017 13:41 [facility] COMPARISON: No previous studies available for comparison. INDICATIONS : Rectal pain and bleeding. ORAL CONTRAST: No oral contrast ingested. RADIATION DOSE: 6.64 CTDIvol (mGy) MEDICAL HISTORY : Seizures. SURGICAL HISTORY : Hysterectomy. ENCOUNTER: Initial ACUITY: 1 day PAIN SCALE: 5/10 LOCATION: rectum TECHNIQUE: Volumetric scanning of the abdomen and pelvis was performed. Using automated exposure control and ad justment of the mA and/or kV according to patient size, radiation dose was kept as low as reasonably achievable to obtain optimal diagnostic quality images. DICOM format image data is available electro nically for review and comparison. FINDINGS: Unenhanced appearance of the liver, pancreas, adrenal and gallbladder are unremarkable. There is a hy perdense lesion at the lower pole of the right kidney measuring 6.8 mm as well as an adjacent hypoden se 1.4 cm cyst. Parapelvic cysts of the left kidney are suspected. There is a hypodense mass of the s pleen anteriorly measuring 4.9 cm, as well as a heterogeneous from a hypodense mass of the spleen pos teriorly with peripheral calcification measuring 5.2 cm. Atherosclerotic calcifications of the aorta and iliac vessels are noted. Urinary bladder is unremarkable. Calcified uterine fibroids are present measuring up to 3.2 cm. There is circumferential bowel wall thickening involving the rectum with maureen ration of the perirectal fat and a small amount of perirectal fluid. The proctitis is suspected. Ther e is no evidence for bowel obstruction. There is diverticulosis of the sigmoid and descending colon. Surgical clips are seen along the anterior abdominal wall just above the pubic symphysis. No adenopat hy or aneurysm. Lung bases are clear. Degenerative changes of the spine are seen. CONCLUSION: 1. 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 2. Atherosclerosis. 3. Right renal cyst as well as a hyperdense hemorrhagic or proteinaceous cyst. 4. Left renal parapelvic cysts. 5. There are 2 masses in the spleen which are incompletely assessed on this study, but likely represe nt pseudocysts. 6. Diverticulosis. Isaias Chavez MD on December 15, 2017 at 14:09 Board Certified Radiologist. This report was verified electronically.
[2017-12-15] MEDS ORDERED: METOCLOPRAMIDE HCL 10 MG/2 ML VIAL IV PUSH PRN (15:00)
[2017-12-15] MEDS ORDERED: BISACODYL 10 MG SUPP RECTAL PRN (15:00)
[2017-12-15] MEDS ORDERED: MAGNESIUM HYDROXIDE SUSP 30 ML CUP PO PRN (15:00)
[2017-12-15] MEDS ORDERED: LACTULOSE SYRUP 20 GM/30 ML CUP PO PRN (15:00)
[2017-12-15] MEDS ORDERED: NALOXONE HCL 0.4 MG/ML AMP IV PUSH PRN (15:00)
[2017-12-15] MEDS ORDERED: SENNOSIDES 8.6 MG TAB PO PRN (15:00)
--- NOTE | 2017-12-15 15:04 | HHI.HP ---
[facility] Service [facility] Primary Care Physician Unknown Admission Diagnosis GI bleed Diagnoses: Chief Complaint: abdominal pain/ rectal bleeding Travel History International Travel<30 Days: No Contact w/Intl Traveler <30 Da: No Traveled to Known Affected Are: No History of Present Illness 87-year-old female presents to the emergency department for evaluation of abdominal pain, GI bleed. According the patient, she was experiencing abdominal pain. She felt constipated attempted to manually disimpact herself. She states that she stuck her finger up there first and then stuck a cloth upper rectum does disimpact herself. According to EMS, when her hospice nurse came, she had some bright red blood on the towel with her bowel movements over 911 was called. The patient denies having rectal bleeding and states it was "candy". According to EMS, the patient is on hospice for "dementia". When I asked the patient why she was on hospice, she states "I do not know". The patient is alert and oriented to person and place only. She is unsure of the month and the year. She does not know the president. The patient denies any headache. No chest pain shortness breath. She denies any abdominal pain at this time. She denies nausea, vomiting, diarrhea. Moderate severity. Review of Systems ROS Limitations: Clinical Condition, Poor Historian Except as stated in HPI: all other systems reviewed are Neg Past Family Social History Past Medical History Asthma, arthritis, migraines Past Surgical History Hysterectomy, tonsillectomy Reported Medications Last Impressions Abdomen/Pelvis CT 12/15/17 0000 Signed Impressions: Service Date/Time: Friday, December 15, 2017 13:41 - CONCLUSION: 1. 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 2. Atherosclerosis. 3. Right renal cyst as well as a hyperdense hemorrhagic or proteinaceous cyst. 4. Left renal parapelvic cysts. 5. There are 2 masses in the spleen which are incompletely assessed on this study, but likely represent pseudocysts. 6. Diverticulosis. Isaias Chavez MD Allergies: Coded Allergies: codeine (Unverified Allergy, Severe, STOMACH PAIN, 10/08/17) iodine (Unverified Allergy, Severe, 10/08/17) potassium iodide (Unverified Allergy, Severe, 10/08/17) povidone-iodine (Unverified Allergy, Severe, 10/08/17) sodium iodide (Unverified Allergy, Severe, 10/08/17) sodium iodide (Unverified Allergy, Severe, 10/08/17) Family History No known diabetes, hyperlipidemia, or hypertension. Social History Denies any alcohol use, tobacco use or illegal drug use. Ambulates with a cane. Physical Exam Vital Signs Vital Signs Date Time Temp Pulse Resp B/P (MAP) Pulse Ox O2 Delivery O2 Flow Rate FiO2 12/15/17 12:08 18 98 Room Air 12/15/17 11:34 18 12/15/17 11:33 97.7 81 18 137/60 (85) 99 Room Air Physical Exam GENERAL: This is a well-nourished, well-developed patient, in no apparent distress. SKIN: No rashes, ecchymoses or lesions. Cool and dry. HEAD: Atraumatic. Normocephalic. No temporal or scalp tenderness. EYES: Pupils equal round and reactive. Extraocular motions intact. No scleral icterus. No injection or drainage. ENT: Nose without bleeding, purulent drainage or septal hematoma. Throat without erythema, tonsillar hypertrophy or exudate. Uvula midline. Airway patent. NECK: Trachea midline. No JVD or lymphadenopathy. Supple, nontender, no meningeal signs. CARDIOVASCULAR: Regular rate and rhythm without murmurs, gallops, or rubs. RESPIRATORY: Clear to auscultation. Breath sounds equal bilaterally. No wheezes , rales, or rhonchi. GASTROINTESTINAL: Abdomen soft, non-tender, nondistended. No hepato-splenomegaly , or palpable masses. No guarding. MUSCULOSKELETAL: Extremities without clubbing, cyanosis, or edema. No joint tenderness, effusion, or edema noted. No calf tenderness. Negative Homans sign bilaterally. NEUROLOGICAL: Awake and alert. Cranial nerves II through XII intact. Motor and sensory grossly within normal limits. Five out of 5 muscle strength in all muscle groups. Normal speech. Laboratory Laboratory Tests Test 12/15/17 12:00 12/15/17 14:34 White Blood Count 10.8 Red Blood Count 3.99 Hemoglobin 11.2 Hematocrit 34.1 Mean Corpuscular Volume 85.4 Mean Corpuscular Hemoglobin 28.0 Mean Corpuscular Hemoglobin Concent 32.8 Red Cell Distribution Width 13.4 Platelet Count 153 Mean Platelet Volume 10.7 Neutrophils (%) (Auto) 82.5 Lymphocytes (%) (Auto) 10.2 Monocytes (%) (Auto) 4.0 Eosinophils (%) (Auto) 2.4 Basophils (%) (Auto) 0.9 Neutrophils # (Auto) 8.9 Lymphocytes # (Auto) 1.1 Monocytes # (Auto) 0.4 Eosinophils # (Auto) 0.3 Basophils # (Auto) 0.1 CBC Comment DIFF FINAL Differential Comment Prothrombin Time 11.0 Prothromb Time International Ratio 1.1 Activated Partial Thromboplast Time 25.7 Blood Urea Nitrogen 22 Creatinine 1.33 Random Glucose 100 Total Protein 7.2 Albumin 3.7 Calcium Level 8.7 Alkaline Phosphatase 72 Aspartate Amino Transf (AST/SGOT) 15 Alanine Aminotransferase (ALT/SGPT) 15 Total Bilirubin 0.3 Sodium Level 142 Potassium Level 3.6 Chloride Level 110 Carbon Dioxide Level 25.7 Anion Gap 6 Estimat Glomerular Filtration Rate 46 Lipase 155 Result Diagram: 12/15/17 1200 12/15/17 1200 Imaging Last Impressions Abdomen/Pelvis CT 12/15/17 0000 Signed Impressions: Service Date/Time: Friday, December 15, 2017 13:41 - CONCLUSION: 1. 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 2. Atherosclerosis. 3. Right renal cyst as well as a hyperdense hemorrhagic or proteinaceous cyst. 4. Left renal parapelvic cysts. 5. There are 2 masses in the spleen which are incompletely assessed on this study, but likely represent pseudocysts. 6. Diverticulosis. Isaias Chavez MD Caprini VTE Risk Assessment Caprini VTE Risk Assessment: Mod/High Risk (score >= 2) Caprini Risk Assessment Model Point Value = 1 Point Value = 2 Point Value = 3 Point Value = 5 Age 41-60 Minor surgery BMI > 25 kg/m2 Swollen legs Varicose veins or History of unexplained or recurrent spontaneous Oral contraceptives or hormone replacement Sepsis (< 1 month) Serious lung disease, including pneumonia (< 1 month) Abnormal pulmonary function Acute myocardial infarction Congestive heart failure (< 1 month) History of inflammatory bowel disease Medical patient at bed rest Age 61-74 Arthroscopic surgery Major open surgery (> 45 min) Laparoscopic surgery (> 45 min) Malignancy Confined to bed (> 72 hours) Immobilizing plaster cast Central venous access Age >= 75 History of VTE Family history of VTE Factor V Leiden Prothrombin [id number] Lupus anticoagulant Anticardiolipin antibodies Elevated serum homocysteine Heparin-induced thrombocytopenia Other congenital or acquired thrombophilia Stroke (< 1 month) Elective arthroplasty Hip, pelvis, or leg fracture Acute spinal cord injury (< 1 month) Prophylaxis Regimen Total Risk Factor Score Risk Level Prophylaxis Regimen 0-1 Low Early ambulation 2 Moderate Order ONE of the following: *Sequential Compression Device (SCD) *Heparin 5000 units SQ BID 3-4 Higher Order ONE of the following medications: *Heparin 5000 units SQ TID *Enoxaparin/Lovenox 40 mg SQ daily (WT < 150 kg, CrCl > 30 mL/min) *Enoxaparin/Lovenox 30 mg SQ daily (WT < 150 kg, CrCl > 10-29 mL/min) *Enoxaparin/Lovenox 30 mg SQ BID (WT < 150 kg, CrCl > 30 mL/min) AND/OR *Sequential Compression Device (SCD) 5 or more Highest Order ONE of the following medications: *Heparin 5000 units SQ TID (Preferred with Epidurals) *Enoxaparin/Lovenox 40 mg SQ daily (WT < 150 kg, CrCl > 30 mL/min) *Enoxaparin/Lovenox 30 mg SQ daily (WT < 150 kg, CrCl > 10-29 mL/min) *Enoxaparin/Lovenox 30 mg SQ BID (WT < 150 kg, CrCl > 30 mL/min) AND *Sequential Compression Device (SCD) Assessment and Plan Assessment and Plan 87-year-old female presents to the emergency department via EMS for evaluation of bright red blood per the rectum and abdominal pain. Abdominal pain GIB- Rectal bleeding Mild ZARI Cr on admission 1.33 CT abdomen/pelvis reviewed and findings discussed with ER PA shows abnormal bowel wall thickening, atherosclerosis, right renal cyst, left renal parapelvic cyst, 2 masses in the spleen which likely represent pseudocyst, diverticulosis. HGB so fat stable monitor and transfuse if HGB < 7 or if symptomatic. Monitor VS NPO Consult GI IVF gentle Chronic medical problems at baseline. Restart home meds as appropriate. Agitation: haldol as need, soft restraints, sitter DVT ppx scd.teds. CI chemical ppx 2/2 active bleeding Discussed Condition With pt, nurse, ED Aaliyah Kong MD December 15, 2017 15:04
[2017-12-15 15:05] LABS: BILIRUBIN, URINE NEG (NEG); BLOOD, URINE SMALL (NEG); GLUCOSE,URINE NEG (NEG); HYALINE CAST, URINE 3 /lpf (RARE); KETONE, URINE NEG (NEG); NITRITE,URINE NEG (NEG); PH, URINE 5.5 (5.0-8.5); SQUAMOUS EPITHELIAL CELL URINE <1 /hpf (0-5); URINE COLOR LIGHT-YELLOW (YELLW/STRAW); URINE LEUKOCYTE ESTERASE MOD (NEG)
[2017-12-15] MEDS: SODIUM CHLOR 0.9% 1000 ML INJ 1,000 ML IV SCH (15:17)
[2017-12-15] MEDS ORDERED: HALOPERIDOL LACTATE 5 MG/ML AMP IV PUSH ONE (15:45)
[2017-12-15] MEDS: LORazepam 2 MG/ML VIAL IV PUSH PRN (16:02)
[2017-12-15 16:03] VITALS: BP 146/68; PULSE 98; RESP 18; O2SAT 100
--- NOTE | 2017-12-15 16:31 | PD.CONS ---
HPI History of Present Illness This is a 87 year old slim female who was brought into the emergency room on 12/05. According to our records patient has a history of constipation and is currently been cared for at home through the [facility] hospice. The hospice nurse was at the home visiting the patient when she noticed bright red blood on a towel that patient was putting a per rectum to assist with disimpaction. Patient called her stool candy which she was holding in her hand. According to the record patient is on hospice for her dementia. No one is currently with her at the hospital but patient is calling out her son's name Derrick Munson. Patient's home phone number is [phone]. Attempt was made to contact Derrick Munson but no one is answering the phone. Patient is agitated, confused, and is attempting to leave the hospital. She has now been placed back in her room with four-point soft restraints. She is a poor historian so any information gathered is from the record. There is no further rectal bleeding noted at this time. Patient's abdomen is soft nontender and active bowel sounds. Labs show current hemoglobin to be 11.2 hematocrit 34.1, INR 1.1. (Alison Rees) PFSH Past Medical History According to the record asthma, arthritis, migraines Dementia Mood disorder Adjustment disorder Asthma Atypical chest pain Shoulder pain GI bleed Past Surgical History Hysterectomy, tonsillectomy (Alison Rees) Coded Allergies: codeine (Unverified Allergy, Severe, STOMACH PAIN, 10/08/17) iodine (Unverified Allergy, Severe, 10/08/17) potassium iodide (Unverified Allergy, Severe, 10/08/17) povidone-iodine (Unverified Allergy, Severe, 10/08/17) sodium iodide (Unverified Allergy, Severe, 10/08/17) sodium iodide (Unverified Allergy, Severe, 10/08/17) Medications Administered Medications Medications (Trade) Dose Ordered Sig/Salbador Route PRN Reason Start Time Stop Time Status Last Admin Dose Admin Sodium Chloride 1,000 ml @ 70 mls/hr [id number] IV 12/15/17 15:15 12/15/17 15:17 Lorazepam (Ativan Inj) 1 mg Q6H PRN IV PUSH MILD ANXIETY 12/15/17 15:45 12/15/17 16:02 Family History According to the record no known diabetes, hyperlipidemia, or hypertension. Social History Denies any alcohol use, tobacco use or illegal drug use. Ambulates with a cane. (Alison Rees) Review of Systems Dementia no ROS completed (Alison Rees) GI Exam Vitals I&O Vital Signs Date Time Temp Pulse Resp B/P (MAP) Pulse Ox O2 Delivery O2 Flow Rate FiO2 12/15/17 12:08 18 98 Room Air 12/15/17 11:34 18 12/15/17 11:33 97.7 81 18 137/60 (85) 99 Room Air Imaging Last Impressions Abdomen/Pelvis CT 12/15/17 0000 Signed Impressions: Service Date/Time: Friday, December 15, 2017 13:41 - CONCLUSION: 1. 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 2. Atherosclerosis. 3. Right renal cyst as well as a hyperdense hemorrhagic or proteinaceous cyst. 4. Left renal parapelvic cysts. 5. There are 2 masses in the spleen which are incompletely assessed on this study, but likely represent pseudocysts. 6. Diverticulosis. Isaias Chavez MD Laboratory Test 12/15/17 12:00 12/15/17 14:34 White Blood Count 10.8 TH/MM3 Red Blood Count 3.99 MIL/MM3 Hemoglobin 11.2 GM/DL Hematocrit 34.1 % Mean Corpuscular Volume 85.4 FL Mean Corpuscular Hemoglobin 28.0 PG Mean Corpuscular Hemoglobin Concent 32.8 % Red Cell Distribution Width 13.4 % Platelet Count 153 TH/MM3 Mean Platelet Volume 10.7 FL Neutrophils (%) (Auto) 82.5 % Lymphocytes (%) (Auto) 10.2 % Monocytes (%) (Auto) 4.0 % Eosinophils (%) (Auto) 2.4 % Basophils (%) (Auto) 0.9 % Neutrophils # (Auto) 8.9 TH/MM3 Lymphocytes # (Auto) 1.1 TH/MM3 Monocytes # (Auto) 0.4 TH/MM3 Eosinophils # (Auto) 0.3 TH/MM3 Basophils # (Auto) 0.1 TH/MM3 CBC Comment DIFF FINAL Differential Comment Prothrombin Time 11.0 SEC Prothromb Time International Ratio 1.1 RATIO Activated Partial Thromboplast Time 25.7 SEC Blood Urea Nitrogen 22 MG/DL Creatinine 1.33 MG/DL Random Glucose 100 MG/DL Total Protein 7.2 GM/DL Albumin 3.7 GM/DL Calcium Level 8.7 MG/DL Alkaline Phosphatase 72 U/L Aspartate Amino Transf (AST/SGOT) 15 U/L Alanine Aminotransferase (ALT/SGPT) 15 U/L Total Bilirubin 0.3 MG/DL Sodium Level 142 MEQ/L Potassium Level 3.6 MEQ/L Chloride Level 110 MEQ/L Carbon Dioxide Level 25.7 MEQ/L Anion Gap 6 MEQ/L Estimat Glomerular Filtration Rate 46 ML/MIN Lipase 155 U/L Urine Color LIGHT-YELLOW Urine Turbidity CLEAR Urine pH 5.5 Urine Specific Dutton 1.012 Urine Protein NEG mg/dL Urine Glucose (UA) NEG mg/dL Urine Ketones NEG mg/dL Urine Occult Blood SMALL Urine Nitrite NEG Urine Bilirubin NEG Urine Urobilinogen LESS THAN 2.0 MG/DL Urine Leukocyte Esterase MOD Urine RBC 2 /hpf Urine WBC 18 /hpf Urine Squamous Epithelial Cells <1 /hpf Urine Hyaline Casts 3 /lpf Microscopic Urinalysis Comment CULTURE INDICATED Date/Time Source Procedure Growth Status 12/15/17 14:34 Urine Clean Catch Urine Culture Pending Received Physical Examination HEENT: normocephalic; atraumatic; slim body build NECK: Neck is supple, CHEST: Chest is clear CARDIAC: Regular heart rate greater than 100 secondary to patient's agitation ABDOMEN: Flat, soft, nondistended, nontender; no hepatosplenomegaly; bowel sounds are present in all four quadrants. EXTREMITIES: No lower extremity edema. SKIN: No obvious skin breakdown ELECTRICAL SUPERINTENDENT: Random conversation, increased anxiety, patient knows family member son's name Derrick otherwise disoriented to place time situation (Alison Rees) Assessment and Plan Plan Proctitis, probable secondary to anal rectal trauma. Patient is disimpacting herself with her fingers and a towel. Severe constipation with rectal bleeding probably secondary to physical trauma of disimpacting herself. This is a 87-year-old female who is currently being managed with hospice for dementia. Hospice from [facility] came to house to check on patient and called 911 when she saw bright red blood on the towel that patient was physically using to disimpact herself. She is currently having no further rectal bleeding CT scan done on 12/15/2017 shows abnormal bowel wall thickening with changes in the pelvis characteristic of proctitis Atherosclerosis Right renal cyst as well as a hyperdense hemorrhagic cyst. Left renal parapelvic cyst. 2 masses in the spleen which are incompletely assessed on this study but likely to represent pseudocyst Diverticulosis current labs show hemoglobin 11.2 hematocrit 34.1 I have attempted to call patient's home number which is the only number listed in the record. Son Derrick Munson lives with her. number [phone]. Since patient is on hospice it is unknown family's preference to her care. Patient has probable end-stage dimension and is unable to make any decisions for herself. Currently patient has no further rectal bleeding. Proctitis and rectal bleeding may be due to her physical anorectal trauma. Plan Diet per attending Monitor labs especially hemoglobin Monitor for any further rectal bleeding Doxycycline 100 mg every 12 hours Lactulose 30 mL's daily Consider sigmoidoscopy if rectal bleeding returns or persist, but will need to speak with carmen Munson. Further recommendations to follow Patient was seen and examined per myself and Dr. Taylor, note was written on her behalf (Alison Rees) Physician Comments seen, examined agree with above (Ashli Taylor MD) Alison Rees December 15, 2017 16:31 Ashli Taylor MD December 15, 2017 19:26
[2017-12-15 17:04] VITALS: BP 92/54; PULSE 75; RESP 18; TEMP 97.6; O2SAT 98
[2017-12-15 20:10] VITALS: O2SAT 96
[2017-12-15 20:49] VITALS: BP 109/56; PULSE 70; RESP 16; TEMP 98.4; O2SAT 97
[2017-12-15] MEDS: SODIUM CHLORIDE 0.9% FLUSH 10 ML FLUSH IV FLUSH SCH (20:54)
[2017-12-15] MEDS: DOXYCYCLINE MONOHYDRATE SUSP 25 MG/5 ML 60 ML BTL PO SCH (20:54)
[2017-12-15] MEDS: DOCUSATE SODIUM 50 MG/SENNA 8.6 MG TAB PO SCH (20:54)
[2017-12-16 00:10] VITALS: BP 116/58; PULSE 70; RESP 16; TEMP 97.9; O2SAT 99
[2017-12-16] MEDS: HALOPERIDOL LACTATE 5 MG/ML AMP IV PUSH PRN ×2 (00:33→21:56)
[2017-12-16 03:47] VITALS: BP 110/57; PULSE 68; RESP 16; O2SAT 99
[2017-12-16 05:49] LABS: AUTOMATED NEUTROPHIL # 4.9 TH/MM3 (1.8-7.7); BASOPHIL % 0.6 % (0.0-2.0); EOSINOPHIL # 0.5 TH/MM3 (0-0.4); EOSINOPHIL % 6.5 % (0.0-4.0); HEMATOCRIT 29.5 % (35.0-46.0); HEMOGLOBIN 9.8 GM/DL (11.6-15.3); LYMPH % 22.3 % (9.0-44.0); LYMPHOCYTE # 1.7 TH/MM3 (1.0-4.8); MEAN CELL VOLUME 85.5 FL (80.0-100.0); MEAN CORPUSCULAR HEMOGLOBIN 28.3 PG (27.0-34.0); MEAN CORPUSCULAR HGB CONC 33.1 % (32.0-36.0); MEAN PLATELET VOLUME 10.1 FL (7.0-11.0); MONO % 6.3 % (0.0-8.0); MONOCYTE # 0.5 TH/MM3 (0-0.9); NEUT % 64.3 % (16.0-70.0); PLATELET COUNT 117 TH/MM3 (150-450); RED BLOOD COUNT 3.46 MIL/MM3 (4.00-5.30); RED CELL DISTRIBUTION WIDTH 13.2 % (11.6-17.2); WHITE BLOOD COUNT 7.6 TH/MM3 (4.0-11.0)
[2017-12-16] MEDS: SODIUM CHLOR 0.9% 1000 ML INJ 1,000 ML IV SCH ×2 (05:52→20:40)
[2017-12-16 06:33] LABS: ALKALINE PHOSPHATASE 61 U/L (45-117); ALT (GPT) 14 U/L (10-53); AST (GOT) 12 U/L (15-37); BICARBONATE 23.3 MEQ/L (21.0-32.0); BLOOD UREA NITROGEN 14 MG/DL (7-18); CALCIUM 8.2 MG/DL (8.5-10.1); CHLORIDE 113 MEQ/L (98-107); CREATININE 1.01 MG/DL (0.50-1.00); GLOMERULAR FILTRATION RATE 63 ML/MIN (>89); GLUCOSE,RANDOM 78 MG/DL (74-106); SODIUM (NA) 146 MEQ/L (136-145); TOTAL BILIRUBIN ADULT 0.8 MG/DL (0.2-1.0); TOTAL PROTEIN 6.3 GM/DL (6.4-8.2)
[2017-12-16 07:24] VITALS: BP 122/56; PULSE 70; RESP 20; TEMP 98.2; O2SAT 100
[2017-12-16] MEDS: SODIUM CHLORIDE 0.9% FLUSH 10 ML FLUSH IV FLUSH SCH ×2 (09:00→20:40)
[2017-12-16] MEDS: LACTULOSE SYRUP 20 GM/30 ML CUP PO SCH (09:00)
[2017-12-16] MEDS: DOCUSATE SODIUM 50 MG/SENNA 8.6 MG TAB PO SCH ×2 (09:00→20:40)
[2017-12-16] MEDS: DOXYCYCLINE MONOHYDRATE SUSP 25 MG/5 ML 60 ML BTL PO SCH ×3 (10:07→20:43)
[2017-12-16 11:17] VITALS: BP 115/56; PULSE 72; RESP 16; TEMP 98.1; O2SAT 95
--- NOTE | 2017-12-16 12:51 | HHI.PR ---
Subjective Remarks Downward trend in hemoglobin. No further signs of bleeding. Patient has no acute complaints today. Objective Vital Signs Date Time Temp Pulse Resp B/P (MAP) Pulse Ox O2 Delivery O2 Flow Rate FiO2 12/16/17 11:17 98.1 72 16 115/56 (75) 95 12/16/17 07:24 98.2 70 20 122/56 (78) 100 12/16/17 03:47 68 16 110/57 (74) 99 12/16/17 00:10 97.9 70 16 116/58 (77) 99 12/15/17 20:49 98.4 70 16 109/56 (73) 97 12/15/17 20:10 96 12/15/17 17:04 97.6 75 18 92/54 (67) 98 12/15/17 16:03 98 18 146/68 (94) 100 Room Air I/O 12/15/17 12/15/17 12/15/17 12/16/17 12/16/17 12/16/17 07:00 15:00 23:00 07:00 15:00 23:00 Intake Total 240 ml Balance 240 ml Intake Oral 240 ml # Voids 2 1 # Bowel Movements 3 Result Diagram: 12/16/17 0536 12/16/17 0536 Objective Remarks GENERAL: NAD, A&Ox3 HEAD: Normocephalic. NECK: Supple, trachea midline. No lymphadenopathy. EYES: No scleral icterus. No injection or drainage. CARDIOVASCULAR: Regular rate and rhythm without murmurs, gallops, or rubs. RESPIRATORY: Breath sounds equal bilaterally. No accessory muscle use. GASTROINTESTINAL: Abdomen soft, non-tender, nondistended. MUSCULOSKELETAL: No cyanosis, or edema. SKIN: Warm and dry. NEURO: No focal neurological deficitis. A/P Problem List: (1) GI bleed ICD Code: K92.2 - Gastrointestinal hemorrhage, unspecified Status: Acute Assessment and Plan 87-year-old female admitted secondary to bright red blood per the rectum and abdominal pain. Abdominal pain GIB- Rectal bleeding Monitor H&H If bleeding persists sigmoidoscopy will be considered otherwise medical management Avoid blood thinners for now Diet resumed Acute kidney injury Mild IV hydration Continue to monitor renal function DVT prophylaxis SCDs Problem Qualifiers (1) GI bleed: Qualified Codes: K92.2 - Gastrointestinal hemorrhage, unspecified Agus Lara MD December 16, 2017 12:51
[2017-12-16] MEDS ORDERED: BISACODYL EC 5 MG TABEC PO ONE (15:00)
[2017-12-16 15:32] VITALS: BP 134/67; PULSE 80; RESP 16; TEMP 98.5; O2SAT 100
--- NOTE | 2017-12-16 16:00 | HHI.GIFU ---
Subjective Remarks Pt denies any GI symptoms at this time She is in four point restraints, per RN has been trying to leave She has had two loose, bloody BM for dayshift RN (Fifi Arriaga) Objective Vitals I&O Vital Signs Date Time Temp Pulse Resp B/P (MAP) Pulse Ox O2 Delivery O2 Flow Rate FiO2 12/16/17 15:32 98.5 80 16 134/67 (89) 100 12/16/17 11:17 98.1 72 16 115/56 (75) 95 12/16/17 07:24 98.2 70 20 122/56 (78) 100 12/16/17 03:47 68 16 110/57 (74) 99 12/16/17 00:10 97.9 70 16 116/58 (77) 99 12/15/17 20:49 98.4 70 16 109/56 (73) 97 12/15/17 20:10 96 12/15/17 17:04 97.6 75 18 92/54 (67) 98 12/15/17 16:03 98 18 146/68 (94) 100 Room Air I/O 12/15/17 12/15/17 12/15/17 12/16/17 12/16/17 12/16/17 07:00 15:00 23:00 07:00 15:00 23:00 Intake Total 240 ml Balance 240 ml Intake Oral 240 ml # Voids 2 1 # Bowel Movements 3 Laboratory Laboratory Tests Test 12/16/17 05:36 White Blood Count 7.6 Red Blood Count 3.46 Hemoglobin 9.8 Hematocrit 29.5 Mean Corpuscular Volume 85.5 Mean Corpuscular Hemoglobin 28.3 Mean Corpuscular Hemoglobin Concent 33.1 Red Cell Distribution Width 13.2 Platelet Count 117 Mean Platelet Volume 10.1 Neutrophils (%) (Auto) 64.3 Lymphocytes (%) (Auto) 22.3 Monocytes (%) (Auto) 6.3 Eosinophils (%) (Auto) 6.5 Basophils (%) (Auto) 0.6 Neutrophils # (Auto) 4.9 Lymphocytes # (Auto) 1.7 Monocytes # (Auto) 0.5 Eosinophils # (Auto) 0.5 Basophils # (Auto) 0.0 CBC Comment DIFF FINAL Differential Comment Blood Urea Nitrogen 14 Creatinine 1.01 Random Glucose 78 Total Protein 6.3 Albumin 3.0 Calcium Level 8.2 Alkaline Phosphatase 61 Aspartate Amino Transf (AST/SGOT) 12 Alanine Aminotransferase (ALT/SGPT) 14 Total Bilirubin 0.8 Sodium Level 146 Potassium Level 3.8 Chloride Level 113 Carbon Dioxide Level 23.3 Anion Gap 10 Estimat Glomerular Filtration Rate 63 Date/Time Source Procedure Growth Status 12/15/17 14:34 Urine Clean Catch Urine Culture - Final 50-100,000 CFU/ML MIXED MAIRA... Complete Imaging Last Impressions Abdomen/Pelvis CT 12/15/17 0000 Signed Impressions: Service Date/Time: Friday, December 15, 2017 13:41 - CONCLUSION: 1. 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 2. Atherosclerosis. 3. Right renal cyst as well as a hyperdense hemorrhagic or proteinaceous cyst. 4. Left renal parapelvic cysts. 5. There are 2 masses in the spleen which are incompletely assessed on this study, but likely represent pseudocysts. 6. Diverticulosis. Isaias Chavez MD Physical Exam HEENT: Normocephalic; atraumatic CHEST: Even/unlabored CARDIAC: RRR ABDOMEN: Soft, nondistended, nontender; bowel sounds active EXTREMITIES: No clubbing, cyanosis, or edema. SKIN: Normal; no rash; no jaundice. SCALE CLERK: Awake, confused (Fifi Arriaga) Assessment and Plan Plan Assessment: - Rectal bleeding- According to chart patient was having abdominal pain, attempted to disimpact herself because she was feeling constipated, used her finger and then stuck a cloth in her rectum. Hospice nurse noticed BRB on the towel and called 911. CT abdomen and pelvis W/O IV contrast (12/15) --> Abnormal bowel wall thickening 3 changes in the pelvis characteristic of proctitis. Atherosclerosis. Right renal cyst as well as a hyperdense hemorrhagic or proteinaceous cyst. Left renal parapelvic cysts. There are 2 masses in the spleen which are incompletely assessed on this study, but likely represent pseudocysts. Diverticulosis. H/H on admission 11.2/34.1 - ZARI per attending - Dementia- oriented to person and place (12/16) Per RN pt has had two loose bloody BMs today. H/H dropped some, currently 9.8/29.5 Plan: Colonoscopy Monday Obtain consent Clear liquid diet starting today Mag Citrate tomorrow Dulcolax today and tomorrow NPO after MN Monday Monitor H/H Further recommendations based on clinical course and results of above Patient was seen and examined per myself and Dr. Taylor, note was written on her behalf (Fifi Arriaga) Fifi Arriaga December 16, 2017 16:00 Ashli Taylor MD December 16, 2017 18:22
[2017-12-16] MEDS ORDERED: SODIUM CHLORID 0.9% 500 ML IV PRN (16:15)
[2017-12-16] MEDS ORDERED: METOPROLOL TARTRATE 25 MG TAB PO PRN (16:15)
[2017-12-16] MEDS ORDERED: LACTATED RINGER'S 1000 ML IV PRN (16:15)
[2017-12-16 19:44] VITALS: BP 118/58; PULSE 78; RESP 18; TEMP 98.4; O2SAT 95
[2017-12-16] MEDS: SODIUM CHLORIDE 0.9% FLUSH 10 ML FLUSH IV FLUSH PRN (21:56)
[2017-12-17] VITALS (8 sets, daily range): BP systolic 122–177; BP diastolic 58–74; PULSE 62–82; RESP 16–20; TEMP 97.2–98.2; O2SAT 96–100
[2017-12-17] MEDS: SODIUM CHLORIDE 0.9% FLUSH 10 ML FLUSH IV FLUSH SCH ×2 (09:00→21:40)
[2017-12-17] MEDS: LACTULOSE SYRUP 20 GM/30 ML CUP PO SCH (09:10)
[2017-12-17] MEDS: DOXYCYCLINE MONOHYDRATE SUSP 25 MG/5 ML 60 ML BTL PO SCH ×2 (09:10→21:40)
[2017-12-17] MEDS: DOCUSATE SODIUM 50 MG/SENNA 8.6 MG TAB PO SCH ×2 (09:10→21:41)
[2017-12-17] MEDS: SODIUM CHLOR 0.9% 1000 ML INJ 1,000 ML IV SCH (10:42)
--- NOTE | 2017-12-17 10:44 | HHI.PR ---
Subjective Remarks Further GI bleeding reported by nursing staff. Patient is confused again and cannot give history. She has been placed in restraints. Objective Vital Signs Date Time Temp Pulse Resp B/P (MAP) Pulse Ox O2 Delivery O2 Flow Rate FiO2 12/17/17 08:44 98 21 12/17/17 07:57 98.2 70 20 122/58 (79) 96 12/17/17 03:40 98.0 68 18 138/65 (89) 98 12/17/17 00:12 98.2 73 17 122/64 (83) 96 12/16/17 19:44 98.4 78 18 118/58 (78) 95 12/16/17 15:32 98.5 80 16 134/67 (89) 100 12/16/17 11:17 98.1 72 16 115/56 (75) 95 I/O 12/16/17 12/16/17 12/16/17 12/17/17 12/17/17 12/17/17 07:00 15:00 23:00 07:00 15:00 23:00 Intake Total 240 ml 240 ml 1000 ml Balance 240 ml 240 ml 1000 ml Intake Oral 240 ml 240 ml IV Total 1000 ml # Voids 2 1 1 3 1 # Bowel Movements 3 Result Diagram: 12/16/1736 12/16/17 0536 Objective Remarks GENERAL: NAD, A&Ox1 HEAD: Normocephalic. NECK: Supple, trachea midline. No lymphadenopathy. EYES: No scleral icterus. No injection or drainage. CARDIOVASCULAR: Regular rate and rhythm without murmurs, gallops, or rubs. RESPIRATORY: Breath sounds equal bilaterally. No accessory muscle use. GASTROINTESTINAL: Abdomen soft, non-tender, nondistended. MUSCULOSKELETAL: No cyanosis, or edema. SKIN: Warm and dry. NEURO: No focal neurological deficitis. A/P Problem List: (1) GI bleed ICD Code: K92.2 - Gastrointestinal hemorrhage, unspecified Status: Acute Assessment and Plan 87-year-old female admitted secondary to bright red blood per the rectum and abdominal pain. GI bleeding has persisted. Plan for sigmoidoscopy/colonoscopy on Monday. Continue to monitor H&H and transfuse as needed. Abdominal pain GIB- Rectal bleeding Monitor H&H Bleeding is persisting. Avoid blood thinners for now Acute kidney injury Mild IV hydration Continue to monitor renal function DVT prophylaxis SCDs Problem Qualifiers (1) GI bleed: Qualified Codes: K92.2 - Gastrointestinal hemorrhage, unspecified Agus Lara MD December 17, 2017 10:44
[2017-12-17 10:47] LABS: BASOPHIL # 0.1 TH/MM3 (0-0.2); BASOPHIL % 1.8 % (0.0-2.0); EOSINOPHIL # 0.6 TH/MM3 (0-0.4); EOSINOPHIL % 8.8 % (0.0-4.0); HEMATOCRIT 31.1 % (35.0-46.0); HEMOGLOBIN 10.1 GM/DL (11.6-15.3); LYMPH % 22.1 % (9.0-44.0); LYMPHOCYTE # 1.4 TH/MM3 (1.0-4.8); MEAN CELL VOLUME 86.5 FL (80.0-100.0); MEAN CORPUSCULAR HEMOGLOBIN 28.2 PG (27.0-34.0); MEAN CORPUSCULAR HGB CONC 32.6 % (32.0-36.0); MEAN PLATELET VOLUME 10.2 FL (7.0-11.0); MONO % 5.7 % (0.0-8.0); MONOCYTE # 0.4 TH/MM3 (0-0.9); NEUT % 61.6 % (16.0-70.0); PLATELET COUNT 125 TH/MM3 (150-450); RED CELL DISTRIBUTION WIDTH 13.2 % (11.6-17.2); WHITE BLOOD COUNT 6.5 TH/MM3 (4.0-11.0)
[2017-12-17 11:09] LABS: ALBUMIN 3.1 GM/DL (3.4-5.0); BICARBONATE 23.9 MEQ/L (21.0-32.0); BLOOD UREA NITROGEN 10 MG/DL (7-18); CALCIUM 8.7 MG/DL (8.5-10.1); CHLORIDE 114 MEQ/L (98-107); GLOMERULAR FILTRATION RATE 64 ML/MIN (>89); GLUCOSE,RANDOM 121 MG/DL (74-106); SODIUM (NA) 145 MEQ/L (136-145)
[2017-12-17 11:10] LABS: ALT (GPT) 13 U/L (10-53); AST (GOT) 12 U/L (15-37)
[2017-12-17 11:12] LABS: ALKALINE PHOSPHATASE 57 U/L (45-117); TOTAL BILIRUBIN ADULT 0.5 MG/DL (0.2-1.0); TOTAL PROTEIN 6.5 GM/DL (6.4-8.2)
[2017-12-17] MEDS ORDERED: BISACODYL EC 5 MG TABEC PO ONE (12:00)
[2017-12-17] MEDS ORDERED: POTASSIUM CHLORIDE 10 MEQ CONTROLLED RELEASE TAB PO ONE (14:45)
[2017-12-17] MEDS: HALOPERIDOL LACTATE 5 MG/ML AMP IV PUSH PRN ×2 (15:13→22:29)
--- NOTE | 2017-12-17 15:21 | HHI.PR ---
Subjective Remarks F/U GIB NOT SEEN Objective Vitals Vital Signs Date Time Temp Pulse Resp B/P (MAP) Pulse Ox O2 Delivery O2 Flow Rate FiO2 12/17/17 11:56 97.9 78 18 128/60 (82) 98 12/17/17 08:44 98 21 12/17/17 07:57 98.2 70 20 122/58 (79) 96 12/17/17 03:40 98.0 68 18 138/65 (89) 98 12/17/17 00:12 98.2 73 17 122/64 (83) 96 12/16/17 19:44 98.4 78 18 118/58 (78) 95 12/16/17 15:32 98.5 80 16 134/67 (89) 100 I/O 12/16/17 12/16/17 12/16/17 12/17/17 12/17/17 12/17/17 07:00 15:00 23:00 07:00 15:00 23:00 Intake Total 240 ml 240 ml 1000 ml Balance 240 ml 240 ml 1000 ml Intake Oral 240 ml 240 ml IV Total 1000 ml # Voids 2 1 1 3 2 # Bowel Movements 3 1 Result Diagram: 12/17/17 1006 12/17/17 1028 Imaging Last Impressions Abdomen/Pelvis CT 12/15/17 0000 Signed Impressions: Service Date/Time: Friday, December 15, 2017 13:41 - CONCLUSION: 1. 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 2. Atherosclerosis. 3. Right renal cyst as well as a hyperdense hemorrhagic or proteinaceous cyst. 4. Left renal parapelvic cysts. 5. There are 2 masses in the spleen which are incompletely assessed on this study, but likely represent pseudocysts. 6. Diverticulosis. Isaias Chavez MD Objective Remarks GENERAL: NAD, A&Ox1 HEAD: Normocephalic. NECK: Supple, trachea midline. No lymphadenopathy. EYES: No scleral icterus. No injection or drainage. CARDIOVASCULAR: Regular rate and rhythm without murmurs, gallops, or rubs. RESPIRATORY: Breath sounds equal bilaterally. No accessory muscle use. GASTROINTESTINAL: Abdomen soft, non-tender, nondistended. MUSCULOSKELETAL: No cyanosis, or edema. SKIN: Warm and dry. NEURO: No focal neurological deficits. A/P Problem List: (1) GI bleed ICD Code: K92.2 - Gastrointestinal hemorrhage, unspecified Status: Acute Assessment and Plan 87-year-old female admitted secondary to bright red blood per the rectum and abdominal pain. GI bleeding has persisted. Plan for sigmoidoscopy/colonoscopy on Monday. Continue to monitor H&H and transfuse as needed. Abdominal pain GIB- Rectal bleeding Monitor H&H Bleeding is persisting. Avoid blood thinners for now Acute kidney injury Mild IV hydration Continue to monitor renal function Multiple conditions of Dementia, Migraine and asthma DVT prophylaxis SCDs Problem Qualifiers (1) GI bleed: Qualified Codes: K92.2 - Gastrointestinal hemorrhage, unspecified Bret Darling MD December 17, 2017 15:21
[2017-12-17] MEDS ORDERED: MAGNESIUM CITRATE SOLN 300 ML BTL PO ONE ×2 (16:00→18:00)
[2017-12-17] MEDS ORDERED: IPRASOL INH (16:27)
[2017-12-17] MEDS ORDERED: ZOLO25TA PO (16:27)
[2017-12-17] MEDS ORDERED: LIDO1PAD52 TOPICAL (16:27)
[2017-12-17] MEDS ORDERED: SENN8.6T36 PO (16:27)
[2017-12-17] MEDS ORDERED: PILL SPLITTER OTHER PRN (17:15)
[2017-12-17] MEDS ORDERED: RESP: ALBUTEROL 2.5 MG/IPRATROPIUM 0.5 MG NEB (PRN) NEB (17:15)
[2017-12-17] MEDS: LORazepam 2 MG/ML VIAL IV PUSH PRN (17:16)
[2017-12-17] MEDS: SERTRALINE HCL 50 MG TAB PO SCH (21:40)
[2017-12-17] MEDS: BUDESONIDE-FORMOTEROL 80/4.5 MCG INHALER INH SCH (21:40)
[2017-12-17] MEDS: SODIUM CHLORIDE 0.9% FLUSH 10 ML FLUSH IV FLUSH PRN (22:29)
[2017-12-18 00:37] VITALS: BP 130/58; PULSE 79; RESP 19; TEMP 98; O2SAT 96
[2017-12-18 03:52] VITALS: BP 121/57; PULSE 83; RESP 18; TEMP 98.7; O2SAT 98
[2017-12-18 05:13] LABS: BASOPHIL # 0.1 TH/MM3 (0-0.2); BASOPHIL % 1.3 % (0.0-2.0); EOSINOPHIL # 0.5 TH/MM3 (0-0.4); EOSINOPHIL % 6.5 % (0.0-4.0); HEMATOCRIT 31.2 % (35.0-46.0); HEMOGLOBIN 10.3 GM/DL (11.6-15.3); LYMPH % 14.7 % (9.0-44.0); MEAN CELL VOLUME 85.6 FL (80.0-100.0); MEAN CORPUSCULAR HEMOGLOBIN 28.2 PG (27.0-34.0); MEAN PLATELET VOLUME 10.8 FL (7.0-11.0); MONO % 6.7 % (0.0-8.0); MONOCYTE # 0.5 TH/MM3 (0-0.9); NEUT % 70.8 % (16.0-70.0); PLATELET COUNT 129 TH/MM3 (150-450); RED BLOOD COUNT 3.65 MIL/MM3 (4.00-5.30)
[2017-12-18 05:46] LABS: ALBUMIN 3.1 GM/DL (3.4-5.0); ALKALINE PHOSPHATASE 53 U/L (45-117); ALT (GPT) 17 U/L (10-53); AST (GOT) 32 U/L (15-37); BICARBONATE 21.2 MEQ/L (21.0-32.0); BLOOD UREA NITROGEN 7 MG/DL (7-18); CALCIUM 8.9 MG/DL (8.5-10.1); CHLORIDE 118 MEQ/L (98-107); CREATININE 0.77 MG/DL (0.50-1.00); GLOMERULAR FILTRATION RATE 86 ML/MIN (>89); GLUCOSE,RANDOM 86 MG/DL (74-106); MAGNESIUM 2.1 MG/DL (1.5-2.5); SODIUM (NA) 147 MEQ/L (136-145); TOTAL BILIRUBIN ADULT 0.7 MG/DL (0.2-1.0); TOTAL PROTEIN 6.4 GM/DL (6.4-8.2)
[2017-12-18 08:00] VITALS: BP 125/59; PULSE 75; RESP 19; TEMP 98; O2SAT 100
[2017-12-18] MEDS: BUDESONIDE-FORMOTEROL 80/4.5 MCG INHALER INH SCH ×2 (09:00→19:49)
[2017-12-18] MEDS: LACTULOSE SYRUP 20 GM/30 ML CUP PO SCH (09:00)
[2017-12-18] MEDS: DOCUSATE SODIUM 50 MG/SENNA 8.6 MG TAB PO SCH ×2 (09:00→19:47)
[2017-12-18] MEDS: SODIUM CHLORIDE 0.9% FLUSH 10 ML FLUSH IV FLUSH SCH ×2 (09:00→19:49)
[2017-12-18] MEDS: DOXYCYCLINE MONOHYDRATE SUSP 25 MG/5 ML 60 ML BTL PO SCH ×2 (09:00→19:50)
--- NOTE | 2017-12-18 10:13 | HHI.PR ---
Subjective Remarks No events overnight Went for colonoscopy , seen thereafter Patient in nad. No bleeding/ Pleasantly confused no agitation at this time. Objective Vitals Vital Signs Date Time Temp Pulse Resp B/P (MAP) Pulse Ox O2 Delivery O2 Flow Rate FiO2 12/18/17 08:00 98.0 75 19 125/59 (81) 100 12/18/17 03:52 98.7 83 18 121/57 (78) 98 12/18/17 00:37 98.0 79 19 130/58 (82) 96 12/17/17 22:05 97.2 82 18 177/74 (108) 96 12/17/17 18:48 16 100 12/17/17 17:02 98.2 62 20 122/58 (79) 96 12/17/17 11:56 97.9 78 18 128/60 (82) 98 I/O 12/17/17 12/17/17 12/17/17 12/18/17 12/18/17 12/18/17 07:00 15:00 23:00 07:00 15:00 23:00 Intake Total 240 ml 1000 ml 360 ml Balance 240 ml 1000 ml 360 ml Intake Oral 240 ml 360 ml IV Total 1000 ml # Voids 3 2 3 # Bowel Movements 1 2 Result Diagram: 12/18/17 0446 12/18/17 0446 Imaging Last Impressions Abdomen/Pelvis CT 12/15/17 0000 Signed Impressions: Service Date/Time: Friday, December 15, 2017 13:41 - CONCLUSION: 1. 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 2. Atherosclerosis. 3. Right renal cyst as well as a hyperdense hemorrhagic or proteinaceous cyst. 4. Left renal parapelvic cysts. 5. There are 2 masses in the spleen which are incompletely assessed on this study, but likely represent pseudocysts. 6. Diverticulosis. Isaias Chavez MD Objective Remarks GENERAL: NAD, A&Ox1 CARDIOVASCULAR: Regular rate and rhythm without murmurs, gallops, or rubs. RESPIRATORY: Breath sounds equal bilaterally. No accessory muscle use. GASTROINTESTINAL: Abdomen soft, non-tender, nondistended. MUSCULOSKELETAL: No cyanosis, or edema. SKIN: Warm and dry. NEURO: No focal neurological deficits. A/P Problem List: (1) GI bleed ICD Code: K92.2 - Gastrointestinal hemorrhage, unspecified Status: Acute Assessment and Plan 87-year-old female admitted secondary to bright red blood per the rectum and abdominal pain. GI bleeding has persisted. Plan for sigmoidoscopy/colonoscopy on Monday. Continue to monitor H&H and transfuse as needed. Abdominal pain GIB- Rectal bleeding Monitor H&H Bleeding is persisting. Avoid blood thinners for now Acute kidney injury Mild IV hydration Continue to monitor renal function Multiple conditions of Dementia, Migraine and asthma DVT prophylaxis SCDs Colonoscopy 12/18 Problem Qualifiers (1) GI bleed: Qualified Codes: K92.2 - Gastrointestinal hemorrhage, unspecified Aaliyah Sotelo MD December 18, 2017 10:13
[2017-12-18] MEDS ORDERED: LIDOCAINE HCL 1% PF 5 ML SYRINGE OTHER ONE (12:00)
[2017-12-18] MEDS ORDERED: PROPOFOL 200 MG/20 ML AMP IV ONE (12:00)
--- NOTE | 2017-12-18 14:44 | PD.PROCEDR ---
GI Procedure PROCEDURE PERFORMED Colonoscopy with snare polypectomy and biopsy INDICATION FOR PROCEDURE Rectal bleeding PROCEDURE: The procedure, risks and benefits were discussed with Patient/POA and informed consent was obtained. Anesthesia sedated Patient with Diprivan. Patient was placed in the left lateral decubitus position. Colonoscopy: The Pentax videoscope was introduced through the rectum and advanced to cecum where the ileocecal valve and appendiceal orifice were identified. Retroflexion was performed in the rectum. Colonic prep was good FINDINGS: Colonic withdrawal time greater than 6 minutes. As the scope was slowly withdrawn colonic mucosa was carefully inspected the patient was noted to have 7 polyps 2 in the transverse colon one in the proximal the other in the mid segment of the transverse both were excised using cold snare technique and both were retrieved for further evaluation another 5 polyps were noted in the descending colon all were excised using cold snare technique and all retrieved for further evaluation the patient was noted to have moderate diverticulosis of the sigmoid region rectal examination and retroflexion revealed 1 linear ulceration with 2 small ulcers adjacent to it this could very well be traumatic in its etiology biopsies were taken for further evaluation otherwise rectal examination was unremarkable ESTIMATED BLOOD LOSS: None SPECIMENS REMOVED: Colon biopsies COMPLICATIONS: None IMPRESSION: Colon polyps Diverticulosis Rectal ulcer probably traumatic Rectal ulcer probably traumatic PLAN: Await biopsies Advance diet Supportive care Follow-up with GI post discharge Not much to add from a GI standpoint we will sign off Haja Trujillo MD December 18, 2017 14:44
[2017-12-18 16:00] VITALS: BP 112/56; PULSE 74; RESP 18; TEMP 97.2; O2SAT 97
[2017-12-18] MEDS: SODIUM CHLOR 0.9% 1000 ML INJ 1,000 ML IV SCH (17:12)
[2017-12-18] MEDS: LORazepam 2 MG/ML VIAL IV PUSH PRN (17:13)
[2017-12-18] MEDS: HALOPERIDOL LACTATE 5 MG/ML AMP IV PUSH PRN (17:13)
[2017-12-18] MEDS: SERTRALINE HCL 50 MG TAB PO SCH (19:47)
[2017-12-18 20:44] VITALS: BP 122/56; PULSE 72; RESP 18; TEMP 97.1; O2SAT 99
[2017-12-19 01:07] VITALS: BP 131/62; PULSE 81; RESP 18; TEMP 98.1; O2SAT 97
[2017-12-19] MEDS: SODIUM CHLOR 0.9% 1000 ML INJ 1,000 ML IV SCH ×2 (02:34→10:58)
[2017-12-19] MEDS: LORazepam 2 MG/ML VIAL IV PUSH PRN (03:55)
[2017-12-19 04:39] LABS: HEMATOCRIT 29.8 % (35.0-46.0); HEMOGLOBIN 9.8 GM/DL (11.6-15.3); MEAN CELL VOLUME 84.8 FL (80.0-100.0); MEAN CORPUSCULAR HEMOGLOBIN 27.8 PG (27.0-34.0); MEAN CORPUSCULAR HGB CONC 32.7 % (32.0-36.0); MEAN PLATELET VOLUME 10.3 FL (7.0-11.0); PLATELET COUNT 130 TH/MM3 (150-450); RED BLOOD COUNT 3.51 MIL/MM3 (4.00-5.30); WHITE BLOOD COUNT 6.1 TH/MM3 (4.0-11.0)
[2017-12-19 07:32] VITALS: BP 138/62; PULSE 84; RESP 19; TEMP 98.3; O2SAT 99
[2017-12-19] MEDS: DOXYCYCLINE MONOHYDRATE SUSP 25 MG/5 ML 60 ML BTL PO SCH (08:08)
[2017-12-19] MEDS: LACTULOSE SYRUP 20 GM/30 ML CUP PO SCH (08:08)
[2017-12-19] MEDS: BUDESONIDE-FORMOTEROL 80/4.5 MCG INHALER INH SCH ×2 (08:08→20:43)
[2017-12-19] MEDS: DOCUSATE SODIUM 50 MG/SENNA 8.6 MG TAB PO SCH ×2 (08:08→20:44)
[2017-12-19] MEDS: SODIUM CHLORIDE 0.9% FLUSH 10 ML FLUSH IV FLUSH SCH ×2 (08:15→20:43)
[2017-12-19 10:58] VITALS: BP 133/63; PULSE 78; RESP 19; TEMP 98.2; O2SAT 99
--- NOTE | 2017-12-19 11:33 | HHI.PR ---
Subjective Remarks In nad. Patient says she is doing well. No bleeding. Pleasantly confused. No fever or chills. Objective Vitals Vital Signs Date Time Temp Pulse Resp B/P (MAP) Pulse Ox O2 Delivery O2 Flow Rate FiO2 12/19/17 10:58 98.2 78 19 133/63 (86) 99 12/19/17 07:32 98.3 84 19 138/62 (87) 99 12/19/17 01:07 98.1 81 18 131/62 (85) 97 12/18/17 20:44 97.1 72 18 122/56 (78) 99 12/18/17 16:00 97.2 74 18 112/56 (74) 97 12/18/17 14:32 97.4 70 14 118/56 (76) 100 I/O 12/18/17 12/18/17 12/18/17 12/19/17 12/19/17 12/19/17 07:00 15:00 23:00 07:00 15:00 23:00 Intake Total 360 ml 600 ml 240 ml 360 ml Balance 360 ml 600 ml 240 ml 360 ml Intake Oral 360 ml 240 ml 360 ml Other 600 ml # Voids 3 1 3 # Bowel Movements 2 0 Result Diagram: 12/19/17 0425 12/18/17 0446 Imaging Last Impressions Abdomen/Pelvis CT 12/15/17 0000 Signed Impressions: Service Date/Time: Friday, December 15, 2017 13:41 - CONCLUSION: 1. 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 2. Atherosclerosis. 3. Right renal cyst as well as a hyperdense hemorrhagic or proteinaceous cyst. 4. Left renal parapelvic cysts. 5. There are 2 masses in the spleen which are incompletely assessed on this study, but likely represent pseudocysts. 6. Diverticulosis. Isaias Chavez MD Objective Remarks GENERAL: NAD, A&Ox1 CARDIOVASCULAR: Regular rate and rhythm without murmurs, gallops, or rubs. RESPIRATORY: Breath sounds equal bilaterally. No accessory muscle use. GASTROINTESTINAL: Abdomen soft, non-tender, nondistended. MUSCULOSKELETAL: No cyanosis, or edema. SKIN: Warm and dry. NEURO: No focal neurological deficits. A/P Problem List: (1) GI bleed ICD Code: K92.2 - Gastrointestinal hemorrhage, unspecified Status: Acute Assessment and Plan 87-year-old female admitted secondary to bright red blood per the rectum and abdominal pain. GI bleeding has persisted. Had sigmoidoscopy/colonoscopy. Continue to monitor H &H and transfuse as needed. Abdominal pain GIB- Rectal bleeding Colon polyps Diverticulosis Rectal ulcer probably traumatic Rectal ulcer probably traumatic Monitor H&H Avoid blood thinners for now S/p colonoscopy 12/18/17 shows Colon polyps, Diverticulosis, Rectal ulcer probably traumatic, Rectal ulcer probably traumatic Acute kidney injury Mild IV hydration Continue to monitor renal function Multiple conditions of Dementia, Migraine and asthma DVT prophylaxis SCDs Colonoscopy 12/18 Problem Qualifiers (1) GI bleed: Qualified Codes: K92.2 - Gastrointestinal hemorrhage, unspecified Aaliyah Sotelo MD December 19, 2017 11:33
[2017-12-19 14:50] VITALS: BP 124/58; PULSE 80; RESP 18; TEMP 97.4; O2SAT 99
[2017-12-19 20:05] VITALS: BP 135/63; PULSE 70; RESP 16; TEMP 97.7; O2SAT 99
[2017-12-19] MEDS: SERTRALINE HCL 50 MG TAB PO SCH (20:44)
[2017-12-19] MEDS: DOXYCYCLINE HYCLATE 100 MG CAP PO SCH (20:45)
[2017-12-20 00:25] VITALS: BP 130/60; PULSE 82; RESP 16; TEMP 98.8; O2SAT 98
[2017-12-20] MEDS: SODIUM CHLOR 0.9% 1000 ML INJ 1,000 ML IV SCH ×2 (02:00→23:57)
[2017-12-20 04:30] VITALS: BP 139/63; PULSE 79; RESP 16; TEMP 98.7; O2SAT 98
[2017-12-20 07:51] VITALS: BP 142/64; PULSE 83; RESP 19; TEMP 98.3; O2SAT 99
[2017-12-20] MEDS: DOCUSATE SODIUM 50 MG/SENNA 8.6 MG TAB PO SCH ×2 (09:00→21:00)
[2017-12-20] MEDS: LACTULOSE SYRUP 20 GM/30 ML CUP PO SCH (09:00)
[2017-12-20] MEDS: SODIUM CHLORIDE 0.9% FLUSH 10 ML FLUSH IV FLUSH SCH ×2 (09:00→22:11)
[2017-12-20] MEDS: BUDESONIDE-FORMOTEROL 80/4.5 MCG INHALER INH SCH ×2 (09:00→21:00)
[2017-12-20] MEDS: DOXYCYCLINE HYCLATE 100 MG CAP PO SCH ×2 (09:00→21:00)
[2017-12-20 11:46] VITALS: BP 151/68; PULSE 90; RESP 19; TEMP 98.6; O2SAT 98
--- NOTE | 2017-12-20 12:17 | HHI.PR ---
Subjective Remarks At the nursing station, appears in nad. More awake and alert less agitated. Pleasantly confused. No complaints at this time Objective Vitals Vital Signs Date Time Temp Pulse Resp B/P (MAP) Pulse Ox O2 Delivery O2 Flow Rate FiO2 12/20/17 11:46 98.6 90 19 151/68 (95) 98 12/20/17 07:51 98.3 83 19 142/64 (90) 99 12/20/17 04:30 98.7 79 16 139/63 (88) 98 12/20/17 00:25 98.8 82 16 130/60 (83) 98 12/19/17 20:05 97.7 70 16 135/63 (87) 99 12/19/17 14:50 97.4 80 18 124/58 (80) 99 I/O 12/19/17 12/19/17 12/19/17 12/20/17 12/20/17 12/20/17 07:00 15:00 23:00 07:00 15:00 23:00 Intake Total 360 ml 341 ml 1489 ml Balance 360 ml 341 ml 1489 ml Intake Oral 360 ml 50 ml 480 ml IV Total 291 ml 1009 ml # Voids 3 1 2 # Bowel Movements 0 0 Result Diagram: 12/19/17 0425 12/18/17 0446 Imaging Last Impressions Abdomen/Pelvis CT 12/15/17 0000 Signed Impressions: Service Date/Time: Friday, December 15, 2017 13:41 - CONCLUSION: 1. 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 2. Atherosclerosis. 3. Right renal cyst as well as a hyperdense hemorrhagic or proteinaceous cyst. 4. Left renal parapelvic cysts. 5. There are 2 masses in the spleen which are incompletely assessed on this study, but likely represent pseudocysts. 6. Diverticulosis. Isaias Chavez MD Objective Remarks GENERAL: NAD, A&Ox1 CARDIOVASCULAR: Regular rate and rhythm without murmurs, gallops, or rubs. RESPIRATORY: Breath sounds equal bilaterally. No accessory muscle use. GASTROINTESTINAL: Abdomen soft, non-tender, nondistended. MUSCULOSKELETAL: No cyanosis, or edema. SKIN: Warm and dry. NEURO: No focal neurological deficits. A/P Problem List: (1) GI bleed ICD Code: K92.2 - Gastrointestinal hemorrhage, unspecified Status: Acute Assessment and Plan 87-year-old female admitted secondary to bright red blood per the rectum and abdominal pain. GI bleeding has persisted. Had sigmoidoscopy/colonoscopy. Continue to monitor H &H and transfuse as needed. Abdominal pain GIB- Rectal bleeding Colon polyps Diverticulosis Rectal ulcer probably traumatic Monitor H&H Avoid blood thinners for now S/p colonoscopy 12/18/17 shows Colon polyps, Diverticulosis, Rectal ulcer probably traumatic, Rectal ulcer probably traumatic. Acute kidney injury Mild IV hydration Continue to monitor renal function Dementia with Agitation, required restraints at time. meds as need ativan, Haldol. Off restraints Chronic conditions at baseline Dementia, Migraine and asthma DVT prophylaxis SCDs s/p Colonoscopy 12/18 DC plan: plan to DC to SNF when arrangements are done. Problem Qualifiers (1) GI bleed: Qualified Codes: K92.2 - Gastrointestinal hemorrhage, unspecified Aaliyah Sotelo MD December 20, 2017 12:17
[2017-12-20] MEDS: LORazepam 2 MG/ML VIAL IV PUSH PRN (13:33)
--- NOTE | 2017-12-20 16:43 | HHI.DS ---
Discharge Summary Admission Date December 17, 2017 at 10:41 Admitting Diagnosis GI bleed (1) GI bleed ICD Code: K92.2 - Gastrointestinal hemorrhage, unspecified Status: Acute Brief History - From Admission 87-year-old female presents to the emergency department for evaluation of abdominal pain, GI bleed. According the patient, she was experiencing abdominal pain. She felt constipated attempted to manually disimpact herself. She states that she stuck her finger up there first and then stuck a cloth upper rectum does disimpact herself. According to EMS, when her hospice nurse came, she had some bright red blood on the towel with her bowel movements over 911 was called. The patient denies having rectal bleeding and states it was "candy". According to EMS, the patient is on hospice for "dementia". When I asked the patient why she was on hospice, she states "I do not know". The patient is alert and oriented to person and place only. She is unsure of the month and the year. She does not know the president. The patient denies any headache. No chest pain shortness breath. She denies any abdominal pain at this time. She denies nausea, vomiting, diarrhea. Moderate severity. CBC/BMP: 12/19/17 0425 12/18/17 0446 Significant Findings Laboratory Tests Test 12/18/17 04:46 12/19/17 04:25 Red Blood Count 3.65 MIL/MM3 (4.00-5.30) 3.51 MIL/MM3 (4.00-5.30) Hemoglobin 10.3 GM/DL (11.6-15.3) 9.8 GM/DL (11.6-15.3) Hematocrit 31.2 % (35.0-46.0) 29.8 % (35.0-46.0) Platelet Count 129 TH/MM3 (150-450) 130 TH/MM3 (150-450) Neutrophils (%) (Auto) 70.8 % (16.0-70.0) Eosinophils (%) (Auto) 6.5 % (0.0-4.0) Eosinophils # (Auto) 0.5 TH/MM3 (0-0.4) Albumin 3.1 GM/DL (3.4-5.0) Sodium Level 147 MEQ/L (136-145) Chloride Level 118 MEQ/L (98-107) Estimat Glomerular Filtration Rate 86 ML/MIN (>89) PE at Discharge GENERAL: NAD, A&Ox1 CARDIOVASCULAR: Regular rate and rhythm without murmurs, gallops, or rubs. RESPIRATORY: Breath sounds equal bilaterally. No accessory muscle use. GASTROINTESTINAL: Abdomen soft, non-tender, nondistended. MUSCULOSKELETAL: No cyanosis, or edema. SKIN: Warm and dry. NEURO: No focal neurological deficits. Pt Condition on Discharge: Stable Discharge Disposition: Discharge to SNF Discharge Instructions DIET: Follow Instructions for: Heart Healthy Diet Activities you can perform: Regular-No Restrictions Aaliyah Sotelo MD December 20, 2017 16:43
[2017-12-20 20:00] VITALS: BP 148/68; PULSE 73; RESP 18; TEMP 98.4; O2SAT 98
[2017-12-20] MEDS: SERTRALINE HCL 50 MG TAB PO SCH (21:00)
[2017-12-21] VITALS: BP 117/66; PULSE 74; RESP 19; TEMP 98.2; O2SAT 97
[2017-12-21 04:00] VITALS: BP 171/79; PULSE 102; RESP 13; TEMP 97.5; O2SAT 98
[2017-12-21 07:06] VITALS: BP 130/65; PULSE 74; RESP 17; TEMP 97.6; O2SAT 98
[2017-12-21] MEDS: BUDESONIDE-FORMOTEROL 80/4.5 MCG INHALER INH SCH ×2 (09:00→21:00)
[2017-12-21] MEDS: LACTULOSE SYRUP 20 GM/30 ML CUP PO SCH (09:00)
[2017-12-21] MEDS: DOCUSATE SODIUM 50 MG/SENNA 8.6 MG TAB PO SCH ×2 (09:00→21:00)
[2017-12-21] MEDS: DOXYCYCLINE HYCLATE 100 MG CAP PO SCH ×2 (09:00→21:00)
--- NOTE | 2017-12-21 09:00 | HHI.PR ---
Subjective Remarks Pleasant at the nursing station however patient is agitated on and off and still requires restraints soft restraints as well as chemical. She is very pleasant at this time. Per nurses she is not eating much. Patient says she does not have much appetite. Denies any abdominal pain. Did not have any bloody bowel movement. Objective Vitals Vital Signs Date Time Temp Pulse Resp B/P (MAP) Pulse Ox O2 Delivery O2 Flow Rate FiO2 12/21/17 07:06 97.6 74 17 130/65 (86) 98 12/21/17 04:00 97.5 102 13 171/79 (109) 98 12/21/17 00:00 98.2 74 19 117/66 (83) 97 12/20/17 20:00 98.4 73 18 148/68 (94) 98 12/20/17 11:46 98.6 90 19 151/68 (95) 98 I/O 12/20/17 12/20/17 12/20/17 12/21/17 12/21/17 12/21/17 07:00 15:00 23:00 07:00 15:00 23:00 Intake Total 1489 ml 750 ml 300 ml Balance 1489 ml 750 ml 300 ml Intake Oral 480 ml 750 ml 300 ml IV Total 1009 ml # Voids 2 3 2 # Bowel Movements 0 Result Diagram: 12/19/17 0425 12/18/17 0446 Imaging Last Impressions Abdomen/Pelvis CT 12/15/17 0000 Signed Impressions: Service Date/Time: Friday, December 15, 2017 13:41 - CONCLUSION: 1. 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 2. Atherosclerosis. 3. Right renal cyst as well as a hyperdense hemorrhagic or proteinaceous cyst. 4. Left renal parapelvic cysts. 5. There are 2 masses in the spleen which are incompletely assessed on this study, but likely represent pseudocysts. 6. Diverticulosis. Isaias Chavez MD Objective Remarks GENERAL: NAD, A&Ox1 CARDIOVASCULAR: Regular rate and rhythm without murmurs, gallops, or rubs. RESPIRATORY: Breath sounds equal bilaterally. No accessory muscle use. GASTROINTESTINAL: Abdomen soft, non-tender, nondistended. MUSCULOSKELETAL: No cyanosis, or edema. SKIN: Warm and dry. NEURO: No focal neurological deficits. A/P Problem List: (1) GI bleed ICD Code: K92.2 - Gastrointestinal hemorrhage, unspecified Status: Acute Assessment and Plan 87-year-old female admitted secondary to bright red blood per the rectum and abdominal pain. GI bleeding has persisted. Had sigmoidoscopy/colonoscopy. Continue to monitor H &H and transfuse as needed. Abdominal pain on admission GIB- Rectal bleeding Colon polyps Diverticulosis Rectal ulcer probably traumatic Monitor H&H Avoid blood thinners for now S/p colonoscopy 12/18/17 shows Colon polyps, Diverticulosis, Rectal ulcer probably traumatic, Rectal ulcer probably traumatic. Acute kidney injury Mild IV hydration Continue to monitor renal function Dementia with Agitation, required restraints at time. meds as need ativan, Haldol. Requiring on/ off restraints. Haldol changed to I as pulled IV. Will start seroquel. Will consult psych for eval Chronic conditions at baseline Migraine and asthma DVT prophylaxis SCDs s/p Colonoscopy 12/18 DC plan: plan to DC to SNF when arrangements are done. Requiring restarints on/ off. Problem Qualifiers (1) GI bleed: Qualified Codes: K92.2 - Gastrointestinal hemorrhage, unspecified Aaliyah Sotelo MD December 21, 2017 09:00
[2017-12-21] MEDS: SODIUM CHLORIDE 0.9% FLUSH 10 ML FLUSH IV FLUSH SCH ×2 (09:29→21:00)
[2017-12-21] MEDS: HALOPERIDOL LACTATE 5 MG/ML AMP IV PUSH PRN (11:45)
[2017-12-21 13:07] VITALS: BP 152/69; PULSE 80; RESP 18; TEMP 98.4; O2SAT 95
[2017-12-21] MEDS: SODIUM CHLOR 0.9% 1000 ML INJ 1,000 ML IV SCH (14:15)
[2017-12-21] MEDS ORDERED: HALOPERIDOL LACTATE 5 MG/ML AMP IM PRN (17:00)
[2017-12-21] MEDS: SERTRALINE HCL 50 MG TAB PO SCH (21:00)
[2017-12-21] MEDS: QUEtiapine FUMARATE 25 MG TAB PO SCH (21:00)
[2017-12-22 04:00] VITALS: BP 142/67; PULSE 86; RESP 18; TEMP 97.4; O2SAT 98
[2017-12-22 06:57] VITALS: BP 121/58; PULSE 76; RESP 17; TEMP 97.4; O2SAT 98
[2017-12-22 07:09] LABS: AUTOMATED NEUTROPHIL # 3.6 TH/MM3 (1.8-7.7); BASOPHIL # 0.1 TH/MM3 (0-0.2); BASOPHIL % 1.7 % (0.0-2.0); EOSINOPHIL # 0.7 TH/MM3 (0-0.4); EOSINOPHIL % 10.7 % (0.0-4.0); HEMATOCRIT 30.8 % (35.0-46.0); LYMPH % 21.3 % (9.0-44.0); LYMPHOCYTE # 1.3 TH/MM3 (1.0-4.8); MEAN CORPUSCULAR HEMOGLOBIN 27.6 PG (27.0-34.0); MEAN CORPUSCULAR HGB CONC 32.5 % (32.0-36.0); MEAN PLATELET VOLUME 10.7 FL (7.0-11.0); MONO % 6.7 % (0.0-8.0); MONOCYTE # 0.4 TH/MM3 (0-0.9); NEUT % 59.6 % (16.0-70.0); PLATELET COUNT 116 TH/MM3 (150-450); RED BLOOD COUNT 3.63 MIL/MM3 (4.00-5.30); WHITE BLOOD COUNT 6.1 TH/MM3 (4.0-11.0)
[2017-12-22 07:36] LABS: CALCIUM 8.6 MG/DL (8.5-10.1); CREATININE 0.77 MG/DL (0.50-1.00)
[2017-12-22] MEDS: BUDESONIDE-FORMOTEROL 80/4.5 MCG INHALER INH SCH ×2 (07:52→20:40)
[2017-12-22] MEDS: SODIUM CHLORIDE 0.9% FLUSH 10 ML FLUSH IV FLUSH SCH ×2 (07:53→20:40)
[2017-12-22] MEDS: DOCUSATE SODIUM 50 MG/SENNA 8.6 MG TAB PO SCH ×2 (07:53→20:33)
[2017-12-22] MEDS: LACTULOSE SYRUP 20 GM/30 ML CUP PO SCH (07:53)
[2017-12-22] MEDS: DOXYCYCLINE HYCLATE 100 MG CAP PO SCH ×2 (07:54→20:33)
[2017-12-22] MEDS: QUEtiapine FUMARATE 25 MG TAB PO SCH ×2 (07:54→20:33)
[2017-12-22] MEDS ORDERED: POTASSIUM CHLORIDE 20 MEQ CONTROLLED RELEASE TAB PO ONE (08:30)
--- NOTE | 2017-12-22 11:19 | HHI.PR ---
Subjective Remarks Confused. Once a separate her personal belongings away from her breakfast food. Is wondering why the cuff is on her bed rail. Objective Vitals Vital Signs Date Time Temp Pulse Resp B/P (MAP) Pulse Ox O2 Delivery O2 Flow Rate FiO2 12/22/17 06:57 97.4 76 17 121/58 (79) 98 12/22/17 04:00 97.4 86 18 142/67 (92) 98 12/21/17 13:07 98.4 80 18 152/69 (96) 95 I/O 12/21/17 12/21/17 12/21/17 12/22/17 12/22/17 12/22/17 07:00 15:00 23:00 07:00 15:00 23:00 Intake Total 300 ml 240 ml Balance 300 ml 240 ml Intake Oral 300 ml 240 ml # Voids 2 3 Result Diagram: 12/22/1725 12/22/17 05 Objective Remarks GENERAL: This is a well-nourished, pleasantly confused well-developed patient, in no apparent distress. CARDIOVASCULAR: Regular rate and rhythm without murmurs, gallops, or rubs. RESPIRATORY: Clear to auscultation. Breath sounds equal bilaterally. No wheezes , rales, or rhonchi. MUSCULOSKELETAL: Extremities without clubbing, cyanosis, or edema. NEURO: Confused but does answer questions and follows simple directions. Left wrist in soft restraint A/P Problem List: (1) GI bleed ICD Code: K92.2 - Gastrointestinal hemorrhage, unspecified Status: Acute Assessment and Plan 87-year-old female admitted secondary to bright red blood per the rectum and abdominal pain. Had sigmoidoscopy/colonoscopy on 12/18. Continue to monitor H&H and transfuse as needed. Abdominal pain on admission GIB- Rectal bleeding with findings of colon polyps, Diverticulosis, Rectal ulcer probably traumatic Monitor H&H which has been stable Avoid blood thinners for now S/p colonoscopy 12/18/17 shows Colon polyps, Diverticulosis, Rectal ulcer probably traumatic, Rectal ulcer probably traumatic. Acute kidney injury superimposed on chronic kidney disease stage II Mild Status post IV hydration, patient has good p.o. intake, avoid nephrotoxins. Dementia with Agitation, required restraints at time. meds as need ativan, Haldol. Requiring on/ off restraints. continue seroquel. DVT prophylaxis SCDs. Anticoagulation contraindicated due to GI bleed Discharge Planning DC to SNF when arrangements made- will need to be off restraints for placement. Problem Qualifiers (1) GI bleed: Qualified Codes: K92.2 - Gastrointestinal hemorrhage, unspecified Stephie Singh MD December 22, 2017 11:19
[2017-12-22 12:00] VITALS: BP_SYST 134; BP_SYST 145; BP_DIAS 65; BP_DIAS 74; PULSE 75; PULSE 87; RESP 17; TEMP 97.4; TEMP 97.9; O2SAT 100; O2SAT 98
--- NOTE | 2017-12-22 12:33 | PD.PSY.CON ---
Provisional Diagnosis Admission Date December 17, 2017 at 10:41 [place]. Delirium due to underlying medical condition History of Present Illness Service Psychiatry Consult Requested By Medicine Reason for Consult Agitation and aggressive behavior Primary Care Physician Unknown HPI The patient is 87-year-old -[place] woman, with psychiatric history of dementia, depression, admitted secondary to bright red blood per the rectum and abdominal pain. Had sigmoidoscopy/colonoscopy on 12/18. Continue to monitor H&H and transfuse as needed. Abdominal pain on admission. GIB- Rectal bleeding with findings of colon polyps, Diverticulosis, Rectal ulcer probably traumatic. S/p colonoscopy 12/18/17 shows Colon polyps, Diverticulosis, Rectal ulcer probably traumatic, Rectal ulcer probably traumatic. Acute kidney injury superimposed on chronic kidney disease stage II. Patient has been consulted to psychiatry due to agitation in the medical floor. However, on psychiatric evaluation I find a patient is calm, cooperative, pleasantly demented. Patient reports feeling okay. She said that she is happy today "to be here". Patient says that she is "here in [place], [place]". He denies symptoms of depression, denies anxiety, denies tracy and psychosis. The patient is oriented in person, disoriented in time, she thinks is [birth year], [address]. Disoriented in place. She has been taking her medications, no side effects present at the moment. She denies suicidal and was ideation, denies visual and auditory hallucinations. No agitation or aggressive behavior observed during this evaluation. Review of Systems Constitutional: DENIES: Diaphoretic episodes, Fatigue, Fever, Weight gain, Weight loss, Chills, Dizziness, Change in appetite, Night Sweats Eyes: DENIES: Blurred vision, Diplopia, Eye inflammation, Eye pain, Vision loss , Photosensitivity, Double Vision Ears, nose, mouth, throat: DENIES: Tinnitus, Hearing loss, Vertigo, Nasal discharge, Oral lesions, Throat pain, Hoarseness, Ear Pain, Running Nose, Epistaxis, Sinus Pain, Toothache, Odynophagia Respiratory: DENIES: Apneas, Cough, Snoring, Wheezing, Hemoptysis, Sputum production, Shortness of breath Cardiovascular: DENIES: Chest pain, Palpitations, Syncope, Dyspnea on Exertion , PND, Lower Extremity Edema, Orthopnea, Claudication Gastrointestinal: DENIES: Abdominal pain, Black stools, Bloody stools, Constipation, Diarrhea, Nausea, Vomiting, Difficulty Swallowing, Anorexia Genitourinary: DENIES: Abnormal vaginal bleeding, Dysmenorrhea, Dyspareunia, Sexual dysfunction, Urinary frequency, Urinary incontinence, Urgency, Hematuria , Dysuria, Nocturia, Vaginal discharge Musculoskeletal: DENIES: Joint pain, Muscle aches, Stiffness, Joint Swelling, Back pain, Neck pain Integumentary: DENIES: Abnormal pigmentation, Pruritus, Rash, Nail changes, Breast masses, Breast skin changes, Nipple discharge Hematologic/lymphatic: DENIES: Bruising, Lymphadenopathy Immunologic/allergic: DENIES: Eczema, Urticaria Neurologic: DENIES: Abnormal gait, Headache, Localized weakness, Paresthesias, Seizures, Speech Problems, Tremor, Poor Balance Psychiatric: COMPLAINS OF: Confusion, DENIES: Anxiety, Mood changes, Depression , Hallucinations, Agitation, Suicidal Ideation, Homicidal Ideation, Delusions Past Family Social History Coded Allergies: codeine (Unverified Allergy, Severe, STOMACH PAIN, 10/08/17) iodine (Unverified Allergy, Severe, 10/08/17) potassium iodide (Unverified Allergy, Severe, 10/08/17) povidone-iodine (Unverified Allergy, Severe, 10/08/17) sodium iodide (Unverified Allergy, Severe, 10/08/17) sodium iodide (Unverified Allergy, Severe, 10/08/17) Active Scripts Lidocaine (Lidoderm) 5 % Adh..patch, 1 PATCH TOPICAL DAILY for Pain, #14 Prov:Jose Carlos Galvez MD 10/08/17 Hydrocodone-Acetaminophen (Hydrocodone-Acetaminophen) 5-325 mg Tab, 1 TAB PO Q6H Y for PAIN, #12 TAB 0 Refills Prov:Agus Chavez MD 10/08/17 Docusate Calcium (Stool Softener) 240 Mg Cap, 240 MG PO DAILY for Constipation, #15 Prov:Leandra Chacon MD 02/16/[address] (Gentle Laxative DR) 5 Mg Tabdr, 5 MG PO DAILY Y for CONSTIPATION, #20 TAB 0 Refills Prov:Leandra Chacon MD 02/16/17 Psyllium Powder (Psyllium Powder) 1 Pow Pow, 1 SCOOP PO TID Y for CONSTIPATION for 14 Days, CONTAINER 0 Refills 1 rounded TEASPOON in 8 oz of liquid at the first sign of irregularity. Prov:Leandra Chacon MD 02/16/17 Reported Medications Sennosides (Senna-Tabs) 8.6 Mg Tab, 8.6 MG PO HS for Constipation, #30 TAB 0 Refills 12/17/17 Lidocaine Patch 12 HR (Lidocaine Patch 12 HR) 5 % Patch, 1 PATCH TOPICAL DAILY for Pain Management, #1 BOX 0 Refills Remove patch after 12 hours 12/17/17 Sertraline (Zoloft) 25 Mg Tab, 25 MG PO HS, #30 TAB 0 Refills 12/17/17 Ipratropium-Albuterol Neb (Duoneb) 0.5-2.5 Mg/3 Ml Neb, 1 NEBULE INH Q4HR NEB Y for SHORTNESS OF BREATH, #120 NEBULE 0 Refills 12/17/17 Cholecalciferol (D3 Maximum Strength) 5,000 Unit Cap, 5000 UNITS PO DAILY for Nutritional Supplement, #30 CAP 0 Refills 02/16/17 Multiple Vitamins W/ Minerals (Yariel Mag Zinc + D3) 1 Tab, 1 TAB PO DAILY for Nutritional Supplement, TAB 0 Refills 02/16/17 Budesonide-Formoterol Inh (Symbicort Inh) 80-4.5 Mcg/Act Aero, 2 PUFF INH Q12HR for Asthma Management, #1 INHALER 0 Refills 07/03/16 Current Medications Medications (Trade) Dose Ordered Sig/Salbador Route Start Time Stop Time Status Last Admin (NS Flush) 2 ml UNSCH PRN IV FLUSH 12/15/17 15:00 12/17/17 22:29 (NS Flush) 2 ml BID IV FLUSH 12/15/17 21:00 12/21/17 09:29 (Reglan Inj) 5 mg Q6H PRN IV PUSH 12/15/17 15:00 (Narcan Inj) 0.4 mg UNSCH PRN IV PUSH 12/15/17 15:00 (Rita-Colace) 1 tab BID PO 12/15/17 21:00 12/22/17 07:53 (Milk Of Magnesia Liq) 30 ml Q12H PRN PO 12/15/17 15:00 (Senokot) 17.2 mg Q12H PRN PO 12/15/17 15:00 (Dulcolax Supp) 10 mg DAILY PRN RECTAL 12/15/17 15:00 (Ativan Inj) 1 mg Q6H PRN IV PUSH 12/15/17 15:45 12/20/17 13:33 (Lactulose Liq) 30 ml DAILY PO 12/16/17 09:00 12/19/17 08:08 (Symbicort 80-4.5 Mcg Inh) 2 puff Q12HR INH 12/17/17 21:00 12/19/17 08:08 (Duoneb Neb) 1 ampule Q4HR NEB PRN NEB 12/17/17 17:15 (Zoloft) 25 mg HS PO 12/17/17 21:00 12/18/17 19:47 (Pill Splitter) 1 ea UNSCH PRN OTHER 12/17/17 17:15 (Vibramycin) 100 mg Q12HR PO 12/19/17 21:00 12/22/17 07:54 (SEROquel) 25 mg BID PO 12/21/17 21:00 12/22/17 07:54 (Haldol Inj) 2 mg Q6H PRN IM 12/21/17 17:00 Physical Exam Vital Signs Vital Signs Date Time Temp Pulse Resp B/P (MAP) Pulse Ox O2 Delivery O2 Flow Rate FiO2 12/22/17 06:57 97.4 76 17 121/58 (79) 98 I/O 12/22/17 12/22/17 12/23/17 08:00 16:00 00:00 Intake Total 240 ml 120 ml Balance 240 ml 120 ml Lab Results Test 12/22/17 05:25 White Blood Count 6.1 TH/MM3 Red Blood Count 3.63 MIL/MM3 Hemoglobin 10.0 GM/DL Hematocrit 30.8 % Mean Corpuscular Volume 85.0 FL Mean Corpuscular Hemoglobin 27.6 PG Mean Corpuscular Hemoglobin Concent 32.5 % Red Cell Distribution Width 13.0 % Platelet Count 116 TH/MM3 Mean Platelet Volume 10.7 FL Neutrophils (%) (Auto) 59.6 % Lymphocytes (%) (Auto) 21.3 % Monocytes (%) (Auto) 6.7 % Eosinophils (%) (Auto) 10.7 % Basophils (%) (Auto) 1.7 % Neutrophils # (Auto) 3.6 TH/MM3 Lymphocytes # (Auto) 1.3 TH/MM3 Monocytes # (Auto) 0.4 TH/MM3 Eosinophils # (Auto) 0.7 TH/MM3 Basophils # (Auto) 0.1 TH/MM3 CBC Comment DIFF FINAL Differential Comment Blood Urea Nitrogen 7 MG/DL Creatinine 0.77 MG/DL Random Glucose 67 MG/DL Calcium Level 8.6 MG/DL Magnesium Level 2.0 MG/DL Sodium Level 148 MEQ/L Potassium Level 3.1 MEQ/L Chloride Level 113 MEQ/L Carbon Dioxide Level 24.0 MEQ/L Anion Gap 11 MEQ/L Estimat Glomerular Filtration Rate 86 ML/MIN Date/Time Source Procedure Growth Status 12/15/17 14:34 Urine Clean Catch Urine Culture - Final 50-100,000 CFU/ML MIXED MAIRA... Complete Mental Status Examination Appearance: Appropriate Consciousness: Alert Orientation: Person Motor Activity: Abnormal gait Speech: Incoherent Language: Adequate Fund of Knowledge: Adequate Attention and Concentration: Adequate Memory: Impaired Mood: Appropriate Affect: Appropriate Thought Process & Associations: Loose associations Thought Content: Bizarre thinking Hallucination Type: None Delusion Type: None Suicidal Ideation: No Suicidal Plan: No Suicidal Intention: No Homicidal Ideation: No Homicidal Plan: No Homicidal Intention: No Insight: Poor Judgment: Poor Assessment & Plan Problem List: (1) Delirium due to another medical condition ICD Codes: F05 - Delirium due to known physiological condition Assessment & Plan: On psychiatric evaluation the patient is calm, superficially cooperative, pleasantly confused and demented at the moment. The patient denies symptoms of mood, denies anxiety, denies tracy and psychosis. She denies suicidal enemas ideation. Denies visual and auditory hallucinations. The patient is just oriented to person, completely disoriented in time and place. Disorganized, with loosening of associations, with attention deficit which is most probably secondary to delirium superimposed to dementia. There is no agitation or aggressive behavior at this right moment, but she has been reported to be hyperactive and agitated recently. Agree with Seroquel 25 mg twice daily. Haldol 2 mg IM every 8 hours as needed severe agitation and aggressive behavior. Continue Zoloft 25 for depression. If patient continued to be agitated and nighttime Seroquel can be double to 50 mg at bedtime. Psychiatric admission indicated. Will follow-up (2) GI bleed ICD Codes: K92.2 - Gastrointestinal hemorrhage, unspecified Status: Acute Assessment & Plan Estimated LOS: days Problem Qualifiers (1) GI bleed: Qualified Codes: K92.2 - Gastrointestinal hemorrhage, unspecified Guy De Jesus MD December 22, 2017 12:33
[2017-12-22 16:00] VITALS: BP 145/65; PULSE 77; RESP 18; TEMP 97.6; O2SAT 99
[2017-12-22 19:00] VITALS: BP 134/71; PULSE 78; RESP 18; TEMP 97.8; O2SAT 99
[2017-12-22] MEDS: SERTRALINE HCL 50 MG TAB PO SCH (20:33)
[2017-12-23 03:03] VITALS: BP 119/57; PULSE 75; RESP 17; TEMP 97.9; O2SAT 99
[2017-12-23 07:38] LABS: BICARBONATE 28.2 MEQ/L (21.0-32.0); CALCIUM 8.7 MG/DL (8.5-10.1); CREATININE 0.9 MG/DL (0.50-1.00)
[2017-12-23 08:00] VITALS: BP 121/61; PULSE 88; RESP 18; TEMP 97.7; O2SAT 94
[2017-12-23] MEDS: SODIUM CHLORIDE 0.9% FLUSH 10 ML FLUSH IV FLUSH SCH (09:00)
[2017-12-23] MEDS: BUDESONIDE-FORMOTEROL 80/4.5 MCG INHALER INH SCH (09:00)
[2017-12-23] MEDS: DOXYCYCLINE HYCLATE 100 MG CAP PO SCH (10:17)
[2017-12-23] MEDS: LACTULOSE SYRUP 20 GM/30 ML CUP PO SCH (10:17)
[2017-12-23] MEDS: DOCUSATE SODIUM 50 MG/SENNA 8.6 MG TAB PO SCH (10:17)
[2017-12-23] MEDS: QUEtiapine FUMARATE 25 MG TAB PO SCH (10:17)
--- NOTE | 2017-12-23 11:45 | HHI.DS ---
Discharge Summary Admission Date December 17, 2017 at 10:41 Discharge Date: December 23, 2017 Admitting Diagnosis GI bleed (1) GI bleed ICD Code: K92.2 - Gastrointestinal hemorrhage, unspecified Status: Acute Procedures none Brief History - From Admission 87-year-old female presents to the emergency department for evaluation of abdominal pain, GI bleed. According the patient, she was experiencing abdominal pain. She felt constipated attempted to manually disimpact herself. She states that she stuck her finger up there first and then stuck a cloth upper rectum does disimpact herself. According to EMS, when her hospice nurse came, she had some bright red blood on the towel with her bowel movements over 911 was called. The patient denies having rectal bleeding and states it was "candy". According to EMS, the patient is on hospice for "dementia". When I asked the patient why she was on hospice, she states "I do not know". The patient is alert and oriented to person and place only. She is unsure of the month and the year. She does not know the president. The patient denies any headache. No chest pain shortness breath. She denies any abdominal pain at this time. She denies nausea, vomiting, diarrhea. Moderate severity. CBC/BMP: 12/22/17 0525 12/23/17 0531 Significant Findings Laboratory Tests Test 12/22/17 05:25 12/23/17 05:31 Red Blood Count 3.63 MIL/MM3 (4.00-5.30) Hemoglobin 10.0 GM/DL (11.6-15.3) Hematocrit 30.8 % (35.0-46.0) Platelet Count 116 TH/MM3 (150-450) Eosinophils (%) (Auto) 10.7 % (0.0-4.0) Eosinophils # (Auto) 0.7 TH/MM3 (0-0.4) Random Glucose 67 MG/DL (74-106) Sodium Level 148 MEQ/L (136-145) 147 MEQ/L (136-145) Potassium Level 3.1 MEQ/L (3.5-5.1) 3.1 MEQ/L (3.5-5.1) Chloride Level 113 MEQ/L (98-107) 112 MEQ/L (98-107) Estimat Glomerular Filtration Rate 86 ML/MIN (>89) 72 ML/MIN (>89) PE at Discharge GENERAL: This is a well-nourished, pleasantly confused well-developed patient, in no apparent distress. CARDIOVASCULAR: Regular rate and rhythm without murmurs, gallops, or rubs. RESPIRATORY: Clear to auscultation. Breath sounds equal bilaterally. No wheezes , rales, or rhonchi. MUSCULOSKELETAL: Extremities without clubbing, cyanosis, or edema. NEURO: Confused but does answer questions and follows simple directions. Left wrist in soft restraint Hospital Course This is an 87-year-old female who presented to the ER with bright red blood per rectum and confusion. Her hemoglobin has remained stable in the tens since admission. She has no active bleeding. She has had slowly improving hypernatremia which is nearing normal and periodic hypokalemia which is easily treated with oral replacement. The main issue at this point is her confusion. She has a history of dementia which has been exacerbated. She has been difficult for the staff to manage and has required shots of Haldol. She has been violent but weak. She tries to throw punches at staff. I believe at this point she would be best served by transferring to [facility] where she can be monitored and psych can titrate her onto a medicine to help with her somewhat aggressive affect in the context of chronic dementia. Medicine team will likely need to be consulted to monitor her electrolyte imbalance. Pt Condition on Discharge: Stable Discharge Disposition: Disc to Psych Care Fac Discharge Time: <= 30 minutes Discharge Instructions DIET: Follow Instructions for: Heart Healthy Diet Activities you can perform: Regular-No Restrictions Austin Lara MD December 23, 2017 11:45
[2017-12-23 12:00] VITALS: BP 125/65; PULSE 85; RESP 18; TEMP 97.5; O2SAT 95
[2017-12-23 16:00] VITALS: BP 147/65; PULSE 81; RESP 18; TEMP 98; O2SAT 95
== END 2017-12-23 18:10 | DRG 378 ==
LOC: NEPE 11:22 → NEDA 14:58 → NEPHCDU 17:18 → OBSVTOIN 12-17 10:41 → N06A 12-17 22:48
PROVIDERS: ADMIT Family Medicine; ATTEND Family Medicine
PROC: 0DBM8ZZ Excision of Descending Colon, Via Natural or Artificial Opening Endoscopic (ICD-10-PCS; 2017-12-18)
PROC: 0DBE8ZX Excision of Large Intestine, Via Natural or Artificial Opening Endoscopic, Diagnostic (ICD-10-PCS; 2017-12-18)
PROC: 0DBL8ZZ Excision of Transverse Colon, Via Natural or Artificial Opening Endoscopic (ICD-10-PCS; principal; 2017-12-18 13:44)
DX: K62.5 Hemorrhage of anus and rectum (principal); N17.9 Acute kidney failure, unspecified; E87.0 Hyperosmolality and hypernatremia; F05 Delirium due to known physiological condition; K62.6 Ulcer of anus and rectum; K59.00 Constipation, unspecified; K62.89 Other specified diseases of anus and rectum; K57.30 Diverticulosis of large intestine without perforation or abscess without bleeding; K63.5 Polyp of colon; G43.909 Migraine, unspecified, not intractable, without status migrainosus; J45.909 Unspecified asthma, uncomplicated; N18.2 Chronic kidney disease, stage 2 (mild); E87.6 Hypokalemia; F32.9 Major depressive disorder, single episode, unspecified; M19.90 Unspecified osteoarthritis, unspecified site; R41.840 Attention and concentration deficit; R45.1 Restlessness and agitation; Z90.710 Acquired absence of both cervix and uterus; Z78.1 Physical restraint status
CPT/HCPCS: 74176; 80048; 80053; 81001; 83690; 83735; 85025; 85027; 85610; 85730; 87086; 88305; G8987-GP; G8988-GP; J1630; J2060; J7030; J7040

== ENCOUNTER 2017-12-23 18:37 | Inpatient (IN) | payer MEDICARE ==
[~2017-12-23 18:37] MED LIST changes: -HYDR-3516 PO; +IPRASOL INH; -LIDO1ADH4 TOPICAL; +LIDO1PAD52 TOPICAL; +SENN8.6T36 PO; +ZOLO25TA PO
[2017-12-23 18:40] VITALS: BP 146/66; PULSE 83; RESP 18; TEMP 98; O2SAT 100
[2017-12-23] MEDS ORDERED: LORazepam 2 MG/ML VIAL IM PRN (19:15)
[2017-12-23] MEDS ORDERED: ALUMINUM/MAGNESIUM/SIMETH 30 ML CUP PO PRN (19:15)
[2017-12-23] MEDS ORDERED: ACETAMINOPHEN 325 MG TAB PO PRN (19:15)
[2017-12-23] MEDS ORDERED: LORazepam 1 MG TAB PO PRN (19:15)
[2017-12-23] MEDS ORDERED: PILL SPLITTER OTHER PRN (19:15)
[2017-12-23] MEDS: DOCUSATE CALCIUM 240 MG CAP PO SCH (20:00)
[2017-12-23] MEDS: SERTRALINE HCL 50 MG TAB PO SCH (21:00)
[2017-12-23] MEDS: BUDESONIDE-FORMOTEROL 80/4.5 MCG INHALER INH SCH (21:00)
[2017-12-23] MEDS: LORazepam 0.5 MG TAB PO PRN (22:08)
[2017-12-23] MEDS: LORazepam 2 MG/ML VIAL IM PRN (22:22)
[2017-12-24 06:16] VITALS: BP 125/60; PULSE 77; RESP 16; TEMP 97.7; O2SAT 93
--- NOTE | 2017-12-24 07:58 | PD.CONS ---
HPI Service [facility] Hospitalists Consult Requested By Dr. Davis Reason for Consult Medical management Primary Care Physician Unknown Diagnoses: History of Present Illness 87 yr old AA female w PMHx asthma, dementia, arthritis, migraines, was discharged to the med/psych unit yesterday. She was admitted to the hospital due to potential rectal bleeding after her attempt to disimpact herself. while in the hospital, pt became agitated and aggressive w medical staff requiring restraints and psychiatry was consulted and it was deemed necessary to discharge her to the med/psych unit. Currently pt is calm but tells me "we are not getting into this conversation" when I attempt to ask her questions. she knows she is at [place] but thinks it is 2019 and cannot tell me the month. She doesn't answer my questions when I ask her if she has any pain. Pt is overal a poor historian and most of the information has been obtained from EMR. Discussed w RN, no concerns at this time. Review of Systems ROS Limitations: Poor Historian Past Family Social History Allergies: Coded Allergies: codeine (Unverified Allergy, Severe, STOMACH PAIN, 10/08/17) iodine (Unverified Allergy, Severe, 10/08/17) potassium iodide (Unverified Allergy, Severe, 10/08/17) povidone-iodine (Unverified Allergy, Severe, 10/08/17) sodium iodide (Unverified Allergy, Severe, 10/08/17) sodium iodide (Unverified Allergy, Severe, 10/08/17) Past Medical History Asthma, arthritis, migraines, dementia (is on hospice per record for this) Past Surgical History Hysterectomy, tonsillectomy Reported Medications Reported Meds & Active Scripts Active Stool Softener (Docusate Calcium) 240 Mg Cap 240 Mg PO DAILY Gentle Laxative DR (Bisacodyl) 5 Mg Tabdr 5 Mg PO DAILY PRN Psyllium Powder 1 Pow Pow 1 Scoop PO TID PRN 14 Days 1 rounded TEASPOON in 8 oz of liquid at the first sign of irregularity. Reported Senna-Tabs (Sennosides) 8.6 Mg Tab 8.6 Mg PO HS Lidocaine Patch 12 HR (Lidocaine) 5 % Patch 1 Patch TOPICAL DAILY Remove patch after 12 hours Zoloft (Sertraline HCl) 25 Mg Tab 25 Mg PO HS Duoneb (Ipratropium-Albuterol Neb) 0.5-2.5 Mg/3 Ml Neb 1 Nebule INH Q4HR NEB PRN D3 Maximum Strength (Cholecalciferol) 5,000 Unit Cap 5,000 Units PO DAILY Yariel Mag Zinc + D3 (Multiple Vitamins W/ Minerals) 1 Tab 1 Tab PO DAILY Symbicort Inh (Budesonide/Formoterol Fumarate) 80-4.5 Mcg/Act Aero 2 Puff INH Q12HR Family History Pt states "I don't know my parents" Social History Denies any alcohol use, tells me that she smokes once a year Physical Exam Vital Signs Vital Signs Date Time Temp Pulse Resp B/P (MAP) Pulse Ox O2 Delivery O2 Flow Rate FiO2 12/24/17 06:16 97.7 77 16 125/60 (81) 93 12/23/17 18:40 98.0 83 18 146/66 (92) 100 Physical Exam GENERAL: elderly female, sitting cross-sided on her chair. HEAD: Atraumatic. Normocephalic. No temporal or scalp tenderness. EYES: Extraocular motions intact. ENT: Nose without drainage. Airway patent. NECK: Trachea midline. CARDIOVASCULAR: Regular rate and rhythm without murmurs RESPIRATORY: Clear to auscultation. Breath sounds equal bilaterally. No wheezes GASTROINTESTINAL: Abdomen soft, non-tender, nondistended. No guarding. MUSCULOSKELETAL: Extremities without edema. NEUROLOGICAL: Awake and alert. calm and confused, mumbles at times but her speech is normal when she does speak Assessment and Plan Assessment and Plan Delirium/dementia: management per Psych GI bleed: Hb on 12/22/17 was 10.0.Will monitor. Check Hb today. s/p colonoscopy which showed, colonic polyps, diverticulosis, rectal ulcer probably traumatic. no concerns of active bleeding per psych staff. monitor Asthma: stable. Home meds resumed. PRN duonebs available Thank you for allowing me to take part of Mrs. Child's care, the hospitalist service will continue to follow Enid Martinez MD December 24, 2017 07:58
[2017-12-24] MEDS ORDERED: RESP: ALBUTEROL 2.5 MG/IPRATROPIUM 0.5 MG NEB (PRN) INH (08:30)
[2017-12-24 09:10] LABS: BICARBONATE 21.8 MEQ/L (21.0-32.0); BLOOD UREA NITROGEN 15 MG/DL (7-18); CHLORIDE 113 MEQ/L (98-107); CREATININE 1.03 MG/DL (0.50-1.00); GLOMERULAR FILTRATION RATE 62 ML/MIN (>89); GLUCOSE,RANDOM 88 MG/DL (74-106); SODIUM (NA) 145 MEQ/L (136-145)
[2017-12-24 09:12] LABS: CHOLESTEROL 126 MG/DL (120-200)
[2017-12-24 09:14] LABS: CHOLESTEROL/ HDL RATIO 2.26 RATIO; HDL CHOLESTEROL 55.6 MG/DL (40.0-60.0); LDL CHOLESTEROL 58 MG/DL (0-99); TRIGLYCERIDES 64 MG/DL (42-150)
[2017-12-24] MEDS: DOCUSATE CALCIUM 240 MG CAP PO SCH (10:00)
[2017-12-24] MEDS: NICOTINE 21 MG/24 HR PATCH T-DERMAL SCH (10:00)
[2017-12-24] MEDS: MULTIVITAMINS/MINERALS THERAPEUTIC TAB PO SCH (10:00)
[2017-12-24] MEDS: BUDESONIDE-FORMOTEROL 80/4.5 MCG INHALER INH SCH ×2 (10:00→21:00)
--- NOTE | 2017-12-24 11:47 | HHI.HP ---
Provisional Diagnosis Admission Date December 23, 2017 at 18:37 [place] I. Dementia with behavioral disturbances, delirium Certification of Person's Competence To Provide Express and Informed Consent I have personally examined Trish Child , a person being served at [facility] [[email or web address]] on, December 24, 2017 11:36. Express and informed consent means consent voluntarily given in writing, by a competent person, after sufficient explanation and disclosure of the subject matter involved to enable the person to make a knowing and willful decision without any element of force, fraud, deceit, duress, or other form of constraint or coercion. This person is 18 years of age or older, is not now known to be incompetent to consent to treatment with a guardian advocate, and does not have a health care surrogate or proxy currently making medical treatment decisions. I have found this person to be one of the following: [] Competent to provide express and informed consent, as defined above, for voluntary admission to this facility and is competent to provide express and informed consent for treatment. He/she has the consistent capacity to make well reasoned, willful, and knowing decisions concerning his or her medical or mental health treatment. The person fully and consistently understands the purpose of the admission for examination/placement and is fully capable of personally exercising all rights assured [place] [x] Incompetent to provide express and informed consent to voluntary admission, and this is incompetent to provide express and informed consent to treatment. The person must be transferred to involuntary status and a petition for a guardian advocate filed with the Circuit Court. [] Refusing to provide express and informed consent to voluntary admission but is competent to provide express and informed consent for treatment. The person must be discharged or transferred to involuntary status. Form shall be completed within 24 hours of a person's arrival at the receiving facility and filed in the clinical record of each person: 1. Admitted on a voluntary basis 2. Permitted to provide express and informed consent to his/her own treatment 3. Allowed to transfer from involuntary to voluntary status 4. Prior to permitting a person to consent to his or her own treatment after having been previously found incompetent to consent to treatment. History of Present Illness Capacity: Lacks Capacity HPI 12/22/2017 The patient is 87-year-old -I[place]ian woman, with psychiatric history of dementia, depression, admitted secondary to bright red blood per the rectum and abdominal pain. Had sigmoidoscopy/colonoscopy on 12/18. Continue to monitor H&H and transfuse as needed. Abdominal pain on admission. GIB- Rectal bleeding with findings of colon polyps, Diverticulosis, Rectal ulcer probably traumatic. S/p colonoscopy 12/18/17 shows Colon polyps, Diverticulosis, Rectal ulcer probably traumatic, Rectal ulcer probably traumatic. Acute kidney injury superimposed on chronic kidney disease stage II. Patient has been consulted to psychiatry due to agitation in the medical floor. However, on psychiatric evaluation I find a patient is calm, cooperative, pleasantly demented. Patient reports feeling okay. She said that she is happy today "to be here". Patient says that she is "here in [place], [place]". He denies symptoms of depression, denies anxiety, denies tracy and psychosis. The patient is oriented in person, disoriented in time, she thinks is [birth year], [address] Disoriented in place. She has been taking her medications, no side effects present at the moment. She denies suicidal and was ideation, denies visual and auditory hallucinations. No agitation or aggressive behavior observed during this evaluation. 12/24/2017 the patient was seen today for psychiatric evaluation. The patient is calm, eating her breakfast, superficially cooperative, pleasantly confused. Patient reports feeling much better. She says that she is happy to be here. She thinks that she is at home. At some point she does remember she is in a hospital, does not remember where. Disoriented in time. Denies depressive symptoms, denies anxiety, denies suicidal enemas ideation, denies visual and auditory hallucinations. No agitation or aggressive behavior present at this moment. I try to get collateral information from Arpit Maynard, , who is listed in the EMR as her son, but he did not answer the phone. Review of Systems Constitutional: DENIES: Diaphoretic episodes, Fatigue, Fever, Weight gain, Weight loss, Chills, Dizziness, Change in appetite, Night Sweats Endocrine: DENIES: Abnorml menstrual pattern, Heat/cold intolerance, Polydipsia , Polyuria, Polyphagia Eyes: DENIES: Blurred vision, Diplopia, Eye inflammation, Eye pain, Vision loss , Photosensitivity, Double Vision Ears, nose, mouth, throat: DENIES: Tinnitus, Hearing loss, Vertigo, Nasal discharge, Oral lesions, Throat pain, Hoarseness, Ear Pain, Running Nose, Epistaxis, Sinus Pain, Toothache, Odynophagia Respiratory: DENIES: Apneas, Cough, Snoring, Wheezing, Hemoptysis, Sputum production, Shortness of breath Cardiovascular: DENIES: Chest pain, Palpitations, Syncope, Dyspnea on Exertion , PND, Lower Extremity Edema, Orthopnea, Claudication Gastrointestinal: DENIES: Abdominal pain, Black stools, Bloody stools, Constipation, Diarrhea, Nausea, Vomiting, Difficulty Swallowing, Anorexia Genitourinary: DENIES: Abnormal vaginal bleeding, Dysmenorrhea, Dyspareunia, Sexual dysfunction, Urinary frequency, Urinary incontinence, Urgency, Hematuria , Dysuria, Nocturia, Vaginal discharge Musculoskeletal: DENIES: Joint pain, Muscle aches, Stiffness, Joint Swelling, Back pain, Neck pain Integumentary: DENIES: Abnormal pigmentation, Pruritus, Rash, Nail changes, Breast masses, Breast skin changes, Nipple discharge Hematologic/lymphatic: DENIES: Bruising, Lymphadenopathy Immunologic/allergic: DENIES: Eczema, Urticaria Neurologic: DENIES: Abnormal gait, Headache, Localized weakness, Paresthesias, Seizures, Speech Problems, Tremor, Poor Balance Psychiatric: DENIES: Anxiety, Confusion, Mood changes, Depression, Hallucinations, Agitation, Suicidal Ideation, Homicidal Ideation, Delusions Past Family Social History Coded Allergies: codeine (Unverified Allergy, Severe, STOMACH PAIN, 10/08/17) iodine (Unverified Allergy, Severe, 10/08/17) potassium iodide (Unverified Allergy, Severe, 10/08/17) povidone-iodine (Unverified Allergy, Severe, 10/08/17) sodium iodide (Unverified Allergy, Severe, 10/08/17) sodium iodide (Unverified Allergy, Severe, 10/08/17) Active Scripts Docusate Calcium (Stool Softener) 240 Mg Cap, 240 MG PO DAILY for Constipation, #15 Prov:Leandra Chacon MD 02/16/[address] (Gentle Laxative DR) 5 Mg Tabdr, 5 MG PO DAILY Y for CONSTIPATION, #20 TAB 0 Refills Prov:Leandra Chacon MD 02/16/17 Psyllium Powder (Psyllium Powder) 1 Pow Pow, 1 SCOOP PO TID Y for CONSTIPATION for 14 Days, CONTAINER 0 Refills 1 rounded TEASPOON in 8 oz of liquid at the first sign of irregularity. Prov:Leandra Chacon MD 02/16/17 Reported Medications Sennosides (Senna-Tabs) 8.6 Mg Tab, 8.6 MG PO HS for Constipation, #30 TAB 0 Refills 12/17/17 Lidocaine Patch 12 HR (Lidocaine Patch 12 HR) 5 % Patch, 1 PATCH TOPICAL DAILY for Pain Management, #1 BOX 0 Refills Remove patch after 12 hours 12/17/17 Sertraline (Zoloft) 25 Mg Tab, 25 MG PO HS, #30 TAB 0 Refills 12/17/17 Ipratropium-Albuterol Neb (Duoneb) 0.5-2.5 Mg/3 Ml Neb, 1 NEBULE INH Q4HR NEB Y for SHORTNESS OF BREATH, #120 NEBULE 0 Refills 12/17/17 Cholecalciferol (D3 Maximum Strength) 5,000 Unit Cap, 5000 UNITS PO DAILY for Nutritional Supplement, #30 CAP 0 Refills 02/16/17 Multiple Vitamins W/ Minerals (Yariel Mag Zinc + D3) 1 Tab, 1 TAB PO DAILY for Nutritional Supplement, TAB 0 Refills 02/16/17 Budesonide-Formoterol Inh (Symbicort Inh) 80-4.5 Mcg/Act Aero, 2 PUFF INH Q12HR for Asthma Management, #1 INHALER 0 Refills 07/03/16 Discontinued Scripts Lidocaine (Lidoderm) 5 % Adh..patch, 1 PATCH TOPICAL DAILY for Pain, #14 Prov:Jose Carlos Galvez MD 10/08/17 Hydrocodone-Acetaminophen (Hydrocodone-Acetaminophen) 5-325 mg Tab, 1 TAB PO Q6H Y for PAIN, #12 TAB 0 Refills Prov:Agus Chavez MD 10/08/17 Current Medications Medications (Trade) Dose Ordered Sig/Salbador Route Start Time Stop Time Status Last Admin (Symbicort 80-4.5 Mcg Inh) 2 puff Q12HR INH 12/23/17 21:00 (Surfak) 240 mg DAILY PO 12/23/17 20:00 12/23/17 20:00 (Zoloft) 25 mg HS PO 12/23/17 21:00 12/23/17 21:00 (Theragran M Tab) 1 tab DAILY PO 12/24/17 09:00 (Ativan) 0.5 mg Q12H PRN PO 12/23/17 19:15 12/23/17 22:08 (Ativan Inj) 0.5 mg Q12H PRN IM 12/23/17 19:15 12/23/17 22:22 (Tylenol) 650 mg Q4H PRN PO 12/23/17 19:15 (Milk Of Magnesia Liq) 30 ml DAILY PRN PO 12/23/17 19:15 (Mag-Al Plus Susp Liq) 30 ml Q6H PRN PO 12/23/17 19:15 (Habitrol 21 Mg Patch.24 Hr) 1 patch DAILY T-DERMAL 12/24/17 09:00 (Pill Splitter) 1 ea UNSCH PRN OTHER 12/23/17 19:15 (Duoneb Neb) 1 ampule Q6HR NEB PRN INH 12/24/17 08:30 Physical Exam Vital Signs Vital Signs Date Time Temp Pulse Resp B/P (MAP) Pulse Ox O2 Delivery O2 Flow Rate FiO2 12/24/17 06:16 97.7 77 16 125/60 (81) 93 Lab Results Test 12/24/17 08:00 Blood Urea Nitrogen 15 MG/DL Creatinine 1.03 MG/DL Random Glucose 88 MG/DL Calcium Level 9.0 MG/DL Sodium Level 145 MEQ/L Potassium Level 3.5 MEQ/L Chloride Level 113 MEQ/L Carbon Dioxide Level 21.8 MEQ/L Anion Gap 10 MEQ/L Estimat Glomerular Filtration Rate 62 ML/MIN Triglycerides Level 64 MG/DL Cholesterol Level 126 MG/DL LDL Cholesterol 58 MG/DL HDL Cholesterol 55.6 MG/DL Cholesterol/HDL Ratio 2.26 RATIO Mental Status Examination Appearance: Appropriate Consciousness: Alert Orientation: Person Speech: Hesitant, Slow Language: Adequate Fund of Knowledge: Inadequate Attention and Concentration: Easily Distracted Memory: Impaired Mood: Appropriate Affect: Appropriate Thought Process & Associations: Loose associations Thought Content: Appropriate Hallucination Type: None Delusion Type: None Suicidal Ideation: No Suicidal Plan: No Suicidal Intention: No Homicidal Ideation: No Homicidal Plan: No Homicidal Intention: No Insight: Fair Judgment: Impulsive Assessment & Plan Problem List: (1) Dementia with behavioral disturbance ICD Codes: F03.91 - Unspecified dementia with behavioral disturbance Assessment & Plan: On psychiatric evaluation the patient is calm, superficially cooperative, pleasantly confused and demented at the moment. The patient denies symptoms of mood, denies anxiety, denies tracy and psychosis. She denies suicidal enemas ideation. Denies visual and auditory hallucinations. The patient is just oriented to person, completely disoriented in time and place. Disorganized, with loosening of associations, with attention deficit which is most probably secondary to delirium superimposed to dementia. There is no agitation or aggressive behavior at this right moment, but she has been reported to be hyperactive and agitated recently. Agree with Seroquel 25 mg twice daily. Haldol 2 mg IM every 8 hours as needed severe agitation and aggressive behavior. Continue Zoloft 25 for depression. If patient continued to be agitated and nighttime Seroquel can be double to 50 mg at bedtime. Psychiatric admission indicated. general distillery worker intervention to coordinate safe discharge. Assessment & Plan Estimated LOS: Guy Fitzgerald MD December 24, 2017 11:47
[2017-12-24 12:51] LABS: HEMOGLOBIN A1C 4.7 % (4.3-6.0)
[2017-12-24 18:04] VITALS: BP 121/57; PULSE 92; RESP 18; TEMP 97
[2017-12-24] MEDS: SERTRALINE HCL 50 MG TAB PO SCH (21:00)
[2017-12-25 06:31] VITALS: BP 124/60; PULSE 75; RESP 14; TEMP 96.6; O2SAT 97
[2017-12-25] MEDS: MULTIVITAMINS/MINERALS THERAPEUTIC TAB PO SCH (08:34)
[2017-12-25] MEDS: DOCUSATE CALCIUM 240 MG CAP PO SCH (08:34)
[2017-12-25] MEDS: BUDESONIDE-FORMOTEROL 80/4.5 MCG INHALER INH SCH ×2 (08:34→20:43)
[2017-12-25] MEDS: NICOTINE 21 MG/24 HR PATCH T-DERMAL SCH (08:34)
--- NOTE | 2017-12-25 08:38 | HHI.PR ---
Subjective Remarks Follow-up visit for GI bleed, asthma, and hypokalemia. Patient seen and examined resting in bed comfortably eyes closed, easily arousable to light touch. Denies pain, but is irritable when asked if she is in pain, denies SOB, cough. Spoke with nurse reports patient with poor p.o. intake, has also been refusing medication, no other acute concerns. Objective Vitals Vital Signs Date Time Temp Pulse Resp B/P (MAP) Pulse Ox O2 Delivery O2 Flow Rate FiO2 12/25/17 06:31 96.6 75 14 124/60 (81) 97 12/24/17 18:04 97.0 92 18 121/57 (78) I/O 12/24/17 12/24/17 12/24/17 12/25/17 12/25/17 12/25/17 07:00 15:00 23:00 07:00 15:00 23:00 Intake Total 240 ml 240 ml Balance 240 ml 240 ml Intake Oral 240 ml Oral Supplement 240 ml # Voids 1 1 1 Result Diagram: 12/24/17 0800 Objective Remarks GENERAL: elderly female in no acute distress. HEAD: Atraumatic. Normocephalic. EYES: Extraocular motions intact. ENT: Nose without drainage. Airway patent. NECK: Trachea midline. CARDIOVASCULAR: Regular rate and rhythm without murmurs RESPIRATORY: Clear to auscultation. Breath sounds equal bilaterally. No wheezes GASTROINTESTINAL: Abdomen soft, non-tender, nondistended. No guarding. MUSCULOSKELETAL: Extremities without edema. NEUROLOGICAL: Awake and alert. calm and confused, mumbles but her speech is normal when she does speak and understandable. A/P Assessment and Plan Delirium/dementia - management per Psych -Patient refusing medications GI bleed: Hb on 12/22/17 was 10.0, H&H are checked this morning 10.3/31.2, stable -s/p colonoscopy which showed, colonic polyps, diverticulosis, rectal ulcer probably traumatic -No reports of bleeding per nurse. Hypokalemia, mild Hypernatremia, mild -BMP this morning stable, mild hypokalemia at 3.5 -NA 148 -Encourage p.o. intake, monitor electrolytes periodically. Asthma: stable. -Continue home medications. PRN duonebs available DVT prophylaxis-SCDs, no chemical anticoagulation due to recent rectal bleed. Discussed with nurse. Omero Simmons December 25, 2017 08:38
[2017-12-25] MEDS: LORazepam 0.5 MG TAB PO PRN ×2 (10:15→20:42)
[2017-12-25 10:38] LABS: HEMATOCRIT 31.2 % (35.0-46.0); HEMOGLOBIN 10.3 GM/DL (11.6-15.3)
[2017-12-25 11:02] LABS: BICARBONATE 30.7 MEQ/L (21.0-32.0); CREATININE 0.86 MG/DL (0.50-1.00)
[2017-12-25] MEDS ORDERED: ACETAMINOPHEN 325 MG TAB PO PRN (12:45)
--- NOTE | 2017-12-25 12:53 | HHI.PYPN ---
Subjective Remarks Patient initially transferred from medical floor to [address] Pandey also do the initial H&P for [address] Pandey also do first opinion petition supporting Alex vigil. I agree patient does meet criteria for involuntary psychiatric hospitalization thus I will do second opinion supporting Alex vigil. Patient seen on unit with floor staff she is a pleasantly confused 87-year-old female. At times she gets a little feisty labile with me but overall is redirectable. For now continue treatment. Review of Systems Except as stated in HPI: all other systems reviewed are Neg Mental Status Examination Appearance: Appropriate Consciousness: Alert Orientation: Person Speech: Hesitant, Slow Language: Adequate Fund of Knowledge: Inadequate Attention and Concentration: Easily Distracted Memory: Impaired Mood: Appropriate Affect: Appropriate Thought Process & Associations: Loose associations Thought Content: Appropriate Hallucination Type: None Delusion Type: None Suicidal Ideation: No Suicidal Plan: No Suicidal Intention: No Homicidal Ideation: No Homicidal Plan: No Homicidal Intention: No Insight: Fair Judgment: Impulsive Results Labs Test 12/25/17 10:15 Hemoglobin 10.3 GM/DL Hematocrit 31.2 % Blood Urea Nitrogen 14 MG/DL Creatinine 0.86 MG/DL Random Glucose 93 MG/DL Calcium Level 9.0 MG/DL Sodium Level 148 MEQ/L Potassium Level 3.5 MEQ/L Chloride Level 111 MEQ/L Carbon Dioxide Level 30.7 MEQ/L Anion Gap 6 MEQ/L Estimat Glomerular Filtration Rate 76 ML/MIN Vitals/IOs Vital Signs Date Time Temp Pulse Resp B/P (MAP) Pulse Ox O2 Delivery O2 Flow Rate FiO2 12/25/17 06:31 96.6 75 14 124/60 (81) 97 Assessment & Plan Problem List: (1) DEMENTIA IN OTH DISEASES CLASSD ELSWHR W BEHAVIORAL DISTURB ICD Codes: F02.81 - DEMENTIA IN OTH DISEASES CLASSD ELSWHR W BEHAVIORAL DISTURB (2) ALZHEIMER'S DISEASE WITH LATE ONSET ICD Codes: G30.1 - ALZHEIMER'S DISEASE WITH LATE ONSET Assessment & Plan Estimated LOS: days patient continues pleasantly confused and demented at times a little irritable but overall redirectable, so far patient also compliant medication. Justification for Cont. Inpt. At this time patient would decompensate if placed in a lower level of care Discharge Planning To be determined Srikanth Koroma MD December 25, 2017 12:53
[2017-12-25 18:13] VITALS: BP 146/67; PULSE 77; RESP 16; TEMP 97.5; O2SAT 98
[2017-12-25 18:14] VITALS: BP 146/67; PULSE 77; RESP 16; TEMP 97.5; O2SAT 98
[2017-12-25] MEDS: QUEtiapine FUMARATE 25 MG TAB PO SCH (20:41)
[2017-12-25] MEDS: SERTRALINE HCL 50 MG TAB PO SCH (20:42)
[2017-12-26 06:00] VITALS: BP 137/63; PULSE 73; RESP 14; TEMP 96.5; O2SAT 98
--- NOTE | 2017-12-26 07:56 | HHI.PR ---
Subjective Remarks Follow-up visit for GI bleed, asthma, and hypokalemia. Patient is much more awake this morning and less irritable. Complains that her abdomen feeling "tight ". No other complaints. She believes it is the year 2019, oriented to self. Denies any shortness of breath, cough, nausea, vomiting, headache, dizziness or chest pain. Objective Vitals Vital Signs Date Time Temp Pulse Resp B/P (MAP) Pulse Ox O2 Delivery O2 Flow Rate FiO2 12/26/17 06:00 96.5 73 14 137/63 (87) 98 12/25/17 18:14 97.5 77 16 146/67 (93) 98 12/25/17 18:13 97.5 77 16 146/67 (93) 98 I/O 12/25/17 12/25/17 12/25/17 12/26/17 12/26/17 12/26/17 07:00 15:00 23:00 07:00 15:00 23:00 Intake Total 600 ml Balance 600 ml Intake Oral 600 ml # Voids 1 1 Result Diagram: 12/25/17 1015 12/25/17 1015 Objective Remarks GENERAL: elderly female in no acute distress. HEAD: Atraumatic. Normocephalic. EYES: Extraocular motions intact. ENT: Nose without drainage. Airway patent. NECK: Trachea midline. CARDIOVASCULAR: Regular rate and rhythm without murmurs RESPIRATORY: Clear to auscultation. Breath sounds equal bilaterally. No wheezes GASTROINTESTINAL: Abdomen soft, flat, non-tender, nondistended. No guarding. Hypoactive bowel sounds. MUSCULOSKELETAL: Extremities without edema. NEUROLOGICAL: Awake and alert oriented to self. calm and confused, speech is clear. A/P Assessment and Plan Delirium/dementia - management per Psych -Now compliant with medications. GI bleed: Hb on 12/22/17 was 10.0, H&H are checked this morning 10.3/31.2, stable -s/p colonoscopy which showed, colonic polyps, diverticulosis, rectal ulcer probably traumatic -No reports of bleeding per nurse. Hypokalemia, mild Hypernatremia, mild -BMP stable, mild hypokalemia at 3.5 -NA 148 -Continue to encourage p.o. intake, started on Megace for appetite. -Check BMP in the a.m. Asthma: stable. -Continue home medications. PRN duonebs available Abdominal complaints -Patient with reports of abdomen feeling tight, check KUB -Patient with little to poor p.o. intake since she has been here DVT prophylaxis-SCDs, one-time dose of heparin administered this morning, will discontinue due to recent rectal bleeding. Omero Simmons December 26, 2017 07:56
[2017-12-26 08:12] VITALS: BP 137/63; PULSE 73; RESP 14; TEMP 96.5; O2SAT 98
[2017-12-26] MEDS: DOCUSATE CALCIUM 240 MG CAP PO SCH (08:18)
[2017-12-26] MEDS: BUDESONIDE-FORMOTEROL 80/4.5 MCG INHALER INH SCH ×2 (08:18→20:50)
[2017-12-26] MEDS: MEGESTROL ACETATE SUSP 400 MG/10 ML CUP PO SCH (08:18)
[2017-12-26] MEDS: MULTIVITAMINS/MINERALS THERAPEUTIC TAB PO SCH (08:18)
[2017-12-26] MEDS: QUEtiapine FUMARATE 25 MG TAB PO SCH ×2 (08:18→20:50)
--- NOTE | 2017-12-26 08:18 | HHI.PYPN ---
Subjective Remarks Patient seen in her room with nurse Srini, chart reviewed, patient complaint medications, patient discussed with nurse. Patient calm pleasant with me diffusely confused in all 4 spheres. Though she has been low behavioral problems. She is compliant with her medications. Patient showing no perseveration about bowel movements today, no complaints of abdominal pain or rectal pain Review of Systems Except as stated in HPI: all other systems reviewed are Neg Mental Status Examination Appearance: Appropriate Consciousness: Alert Orientation: Person Speech: Hesitant, Slow Language: Adequate Fund of Knowledge: Inadequate Attention and Concentration: Easily Distracted Memory: Impaired Mood: Appropriate Affect: Appropriate Thought Process & Associations: Loose associations Thought Content: Appropriate Hallucination Type: None Delusion Type: None Suicidal Ideation: No Suicidal Plan: No Suicidal Intention: No Homicidal Ideation: No Homicidal Plan: No Homicidal Intention: No Insight: Fair Judgment: Impulsive Results Labs Test 12/25/17 10:15 Hemoglobin 10.3 GM/DL Hematocrit 31.2 % Blood Urea Nitrogen 14 MG/DL Creatinine 0.86 MG/DL Random Glucose 93 MG/DL Calcium Level 9.0 MG/DL Sodium Level 148 MEQ/L Potassium Level 3.5 MEQ/L Chloride Level 111 MEQ/L Carbon Dioxide Level 30.7 MEQ/L Anion Gap 6 MEQ/L Estimat Glomerular Filtration Rate 76 ML/MIN Vitals/IOs Vital Signs Date Time Temp Pulse Resp B/P (MAP) Pulse Ox O2 Delivery O2 Flow Rate FiO2 12/26/17 08:12 96.5 73 14 137/63 (87) 98 Assessment & Plan Problem List: (1) DEMENTIA IN OTH DISEASES CLASSD ELSWHR W BEHAVIORAL DISTURB ICD Codes: F02.81 - DEMENTIA IN OTH DISEASES CLASSD ELSWHR W BEHAVIORAL DISTURB (2) ALZHEIMER'S DISEASE WITH LATE ONSET ICD Codes: G30.1 - ALZHEIMER'S DISEASE WITH LATE ONSET Assessment & Plan Estimated LOS: days patient continues demented confused the low behavioral problems, compliant medications no complaints of abdominal or rectal pain Justification for Cont. Inpt. At this time patient would decompensate a place to a lower level of care Discharge Planning To be determined Srikanth Koroma MD December 26, 2017 08:17
[2017-12-26] MEDS: NICOTINE 21 MG/24 HR PATCH T-DERMAL SCH (08:19)
[2017-12-26] MEDS ORDERED: HEPARIN SODIUM - SQ 10,000 UNITS/ML VIAL SQ SCH (09:00)
[2017-12-26 10:40] VITALS: BP 103/53; PULSE 94; RESP 16; TEMP 97.7
--- NOTE | 2017-12-26 12:20 | RADRPT ---
EXAM DATE: 12/26/2017 12:12 PM EDT AGE/SEX: 87 years / Female INDICATIONS: Fall today and hit head. Altered mental status. CLINICAL DATA: This is the patient's initial encounter. Patient reports that signs and symptoms have been present for 1 day and indicates a pain score of 0/10. MEDICAL/SURGICAL HISTORY: . Dementia. Hysterectomy. RADIATION DOSE: 36.84 CTDI (mGy) COMPARISON: [facility] [place], CT BRAIN W/O CONTRAST, 09/04/2015. . TECHNIQUE: CT of the head without contrast. Using automated exposure control and adjustment of the mA and/or kV according to patient size, radiation dose was kept as low as reasonably achievable to ob tain optimal diagnostic quality images. FINDINGS: Cerebrum: The ventricles are normal for age. No evidence of midline shift, mass lesion, hemorrhage or acute infarction. No extraaxial fluid collections are seen. Posterior Fossa: The cerebellum and brainstem are intact. The 4th ventricle is midline. The cerebe llopontine angle is unremarkable. Extracranial: The visualized portion of the orbits is intact. Skull: The calvaria is intact. No evidence of skull fracture. CONCLUSION: 1. No acute intracranial abnormality. Stable compared to previous dated 09/04/2015. Electronically signed by: Agus Davies MD 12/26/2017 12:19 PM EDT
--- NOTE | 2017-12-26 12:23 | RADRPT ---
EXAM DATE: 12/26/2017 12:12 PM EDT AGE/SEX: 87 years / Female INDICATIONS: Abdominal pain. CLINICAL DATA: This is the patient's initial encounter. Patient reports that signs and symptoms have been present for 1 day and indicates a pain score of Nonresponsive. MEDICAL/SURGICAL HISTORY: Asthma. Osteoarthritis. Fibroid tumor. Dementia. Tonsillectomy. Hy sterectomy. COMPARISON: No prior exams available for comparison. FINDINGS: Bowel gas pattern is nonspecific without evidence for obstruction or free air. There is a 3.5 cm ronnie cified fibroid noted in the pelvis. Previous laparotomy with sutures noted. Degenerative changes not ed in the lumbar spine. CONCLUSION: No acute findings. Electronically signed by: Remigio Magana MD 12/26/2017 12:22 PM EDT
[2017-12-26] MEDS: LORazepam 2 MG/ML VIAL IM PRN (12:45)
[2017-12-26 18:24] VITALS: BP 141/62; PULSE 88; RESP 15; TEMP 97.2; O2SAT 95
[2017-12-26] MEDS: SERTRALINE HCL 50 MG TAB PO SCH (20:50)
[2017-12-27 05:51] VITALS: BP 135/61; PULSE 79; RESP 16
[2017-12-27 07:38] LABS: BICARBONATE 27.7 MEQ/L (21.0-32.0); CREATININE 0.71 MG/DL (0.50-1.00)
--- NOTE | 2017-12-27 08:04 | HHI.PR ---
Subjective Remarks Follow-up visit for GI bleed, asthma, and hypokalemia. Patient seen and examined sitting up in bed awake eating breakfast this morning in no acute distress. Denies any abdominal pain or discomfort, no BM reported by nursing staff. Patient oriented to self, denies any fevers, chills, nausea, vomiting, dizziness or chest pain. Objective Vitals Vital Signs Date Time Temp Pulse Resp B/P (MAP) Pulse Ox O2 Delivery O2 Flow Rate FiO2 12/27/17 05:51 79 16 135/61 (85) 12/26/17 18:24 97.2 88 15 141/62 (88) 95 12/26/17 10:40 97.7 94 16 103/53 (70) 12/26/17 08:12 96.5 73 14 137/63 (87) 98 I/O 12/26/17 12/26/17 12/26/17 12/27/17 12/27/17 12/27/17 07:00 15:00 23:00 07:00 15:00 23:00 Intake Total 240 ml 480 ml Balance 240 ml 480 ml Intake Oral 240 ml 480 ml # Voids 1 3 Result Diagram: 12/25/17 1015 12/27/17 0619 Imaging Last Impressions Head CT 12/26/17 0000 Signed Impressions: CONCLUSION: 1. No acute intracranial abnormality. Stable compared to previous dated 2015. Abdomen X-Ray 12/26/17 0000 Signed Impressions: CONCLUSION: No acute findings. Objective Remarks GENERAL: elderly female in no acute distress. HEAD: Atraumatic. Normocephalic. EYES: Extraocular motions intact. ENT: Nose without drainage. Airway patent. NECK: Trachea midline. CARDIOVASCULAR: Regular rate and rhythm without murmurs RESPIRATORY: Clear to auscultation. Breath sounds equal bilaterally. No wheezes GASTROINTESTINAL: Abdomen soft, flat, non-tender, nondistended. No guarding. Hypoactive bowel sounds. MUSCULOSKELETAL: Extremities without edema. NEUROLOGICAL: Awake and alert oriented to self. calm and confused, speech is clear. A/P Assessment and Plan Delirium/dementia - management per Psych -On and off compliance with medications, more awake and alert. GI bleed: Hb on 12/22/17 was 10.0, H&H are checked this morning 10.3/31.2, stable -s/p colonoscopy which showed, colonic polyps, diverticulosis, rectal ulcer probably traumatic -No reports of bleeding per nurse. Hypokalemia, mild Hypernatremia, mild Poor p.o. intake -Potassium level 3.3, replace with 30 meq's of KCl p.o. -NA 148 -Continue to encourage p.o. intake, recheck potassium level tomorrow. -Patient more awake and eating, continue p.o. medications Asthma: stable. -Continue home medications. PRN duonebs available Abdominal complaints, resolved Constipation -KUB with 3.5 cm calcified fibroid noted in the pelvis as well as degenerative changes in lumbar spine, no other acute findings per -Patient with little to poor p.o., now on Megace. Start stool softener daily DVT prophylaxis-SCDs, no blood thinners secondary to recent rectal bleeding. Omero Simmons December 27, 2017 08:04
[2017-12-27] MEDS: QUEtiapine FUMARATE 25 MG TAB PO SCH ×2 (09:00→18:00)
[2017-12-27] MEDS: DOCUSATE SODIUM 50 MG/SENNA 8.6 MG TAB PO SCH (09:00)
[2017-12-27] MEDS: DOCUSATE CALCIUM 240 MG CAP PO SCH (09:00)
[2017-12-27] MEDS: MULTIVITAMINS/MINERALS THERAPEUTIC TAB PO SCH (09:00)
[2017-12-27] MEDS: NICOTINE 21 MG/24 HR PATCH T-DERMAL SCH (09:00)
--- NOTE | 2017-12-27 09:22 | HHI.PYPN ---
Subjective Remarks Patient seen in her room nurse Srini, chart reviewed, patient complaint medications, patient discussed with nurse. Patient ate about 75% of her breakfast this morning. Patient overall calm diffusely confused. There is still some difficulty with her trying to do activities that might be a fall risk. Needing redirection and interventions. Otherwise she is showing no behavioral issues. Review of Systems Except as stated in HPI: all other systems reviewed are Neg Mental Status Examination Appearance: Appropriate Consciousness: Alert Orientation: Person Speech: Hesitant, Slow Language: Adequate Fund of Knowledge: Inadequate Attention and Concentration: Easily Distracted Memory: Impaired Mood: Appropriate Affect: Appropriate Thought Process & Associations: Loose associations Thought Content: Appropriate Hallucination Type: None Delusion Type: None Suicidal Ideation: No Suicidal Plan: No Suicidal Intention: No Homicidal Ideation: No Homicidal Plan: No Homicidal Intention: No Insight: Fair Judgment: Impulsive Results Labs Test 12/27/17 06:19 Blood Urea Nitrogen 10 MG/DL Creatinine 0.71 MG/DL Random Glucose 74 MG/DL Calcium Level 9.0 MG/DL Sodium Level 148 MEQ/L Potassium Level 3.3 MEQ/L Chloride Level 112 MEQ/L Carbon Dioxide Level 27.7 MEQ/L Anion Gap 8 MEQ/L Estimat Glomerular Filtration Rate 95 ML/MIN Vitals/IOs Vital Signs Date Time Temp Pulse Resp B/P (MAP) Pulse Ox O2 Delivery O2 Flow Rate FiO2 12/27/17 05:51 79 16 135/61 (85) 12/26/17 18:24 97.2 95 Intake and Output 12/27/17 12/27/17 12/28/17 08:00 16:00 00:00 Intake Total 120 ml Balance 120 ml Assessment & Plan Problem List: (1) DEMENTIA IN OTH DISEASES CLASSD ELSWHR W BEHAVIORAL DISTURB ICD Codes: F02.81 - DEMENTIA IN OTH DISEASES CLASSD ELSWHR W BEHAVIORAL DISTURB (2) ALZHEIMER'S DISEASE WITH LATE ONSET ICD Codes: G30.1 - ALZHEIMER'S DISEASE WITH LATE ONSET Assessment & Plan Estimated LOS: days patient continues demented and confused the low significant behavioral problems. Justification for Cont. Inpt. At this time patient would decompensate a place to the lower level of care Discharge Planning To be determined Srikanth Koroma MD December 27, 2017 09:22
[2017-12-27] MEDS: LORazepam 0.5 MG TAB PO PRN (09:35)
[2017-12-27] MEDS: BUDESONIDE-FORMOTEROL 80/4.5 MCG INHALER INH SCH ×2 (09:35→21:00)
[2017-12-27] MEDS: MEGESTROL ACETATE SUSP 400 MG/10 ML CUP PO SCH (09:35)
[2017-12-27] MEDS ORDERED: POTASSIUM CHLORIDE 10 MEQ CONTROLLED RELEASE TAB PO ONE (10:00)
[2017-12-27 18:00] VITALS: BP 135/62; PULSE 84; RESP 16; O2SAT 97
[2017-12-27] MEDS: SERTRALINE HCL 50 MG TAB PO SCH (21:00)
[2017-12-28 05:52] VITALS: BP 151/65; PULSE 73; RESP 18; O2SAT 98
[2017-12-28] MEDS: QUEtiapine FUMARATE 25 MG TAB PO SCH ×3 (06:00→20:32)
--- NOTE | 2017-12-28 08:02 | HHI.PR ---
Subjective Remarks Follow-up visit for GI bleed, asthma, and hypokalemia. Spoke with nurse who reports patient fell yesterday and now has a one-on-one sitter. Fall was witnessed and patient landed on her bottoms with no head trauma. Patient is seen ambulating from the toilet to her bed with the assistance of sitter and nurse. She is able to follow simple directions and is awake and alert. Patient with shuffling gait which nurse reports is unchanged. Patient denies any pain or discomfort, discomfort noted when sitter putting on socks. No other events overnight or this morning. Objective Vitals Vital Signs Date Time Temp Pulse Resp B/P (MAP) Pulse Ox O2 Delivery O2 Flow Rate FiO2 12/28/17 05:52 73 18 151/65 (93) 98 12/27/17 18:00 84 16 135/62 (86) 97 I/O 12/27/17 12/27/17 12/27/17 12/28/17 12/28/17 12/28/17 07:00 15:00 23:00 07:00 15:00 23:00 Intake Total 480 ml 360 ml Balance 480 ml 360 ml Intake Oral 480 ml 360 ml Result Diagram: 12/25/17 1015 12/28/17 0700 Imaging Last Impressions Head CT 12/26/17 0000 Signed Impressions: CONCLUSION: 1. No acute intracranial abnormality. Stable compared to previous dated 2015. Abdomen X-Ray 12/26/17 0000 Signed Impressions: CONCLUSION: No acute findings. Objective Remarks GENERAL: elderly female in no acute distress. SKIN: No ecchymosis or open wounds noted on bottom, back or legs. HEAD: Atraumatic. Normocephalic. EYES: Extraocular motions intact. ENT: Nose without drainage. Airway patent. NECK: Trachea midline. CARDIOVASCULAR: Regular rate and rhythm without murmurs RESPIRATORY: Clear to auscultation. Breath sounds equal bilaterally. No wheezes GASTROINTESTINAL: Abdomen soft, flat, non-tender, nondistended. No guarding. MUSCULOSKELETAL: Moving bilateral upper and lower extremities without difficulties, no joint deformity, swelling, or erythema noted. Extremities without edema. NEUROLOGICAL: Awake and alert oriented to self. speech is clear. A/P Assessment and Plan Delirium/dementia - management per Psych GI bleed: Hb on 5/25/18 was 10.0, H&H are checked this morning 10.3/31.2, stable -s/p colonoscopy which showed, colonic polyps, diverticulosis, rectal ulcer probably traumatic -No reports of bleeding per nurse. Hypokalemia, mild Hypernatremia, mild Poor p.o. intake -Potassium level 3.4, replaced with p.o. KCl, recheck BMP tomorrow -NA 148 -Continue to encourage p.o. intake. Asthma: stable. -Continue home medications. PRN duonebs available Abdominal complaints, resolved Constipation -KUB with 3.5 cm calcified fibroid noted in the pelvis as well as degenerative changes in lumbar spine, no other acute findings per -Patient with little to poor p.o., now on Megace. Continue stool softeners. Fall -Patient ambulating without any difficulties, no complaints of pain or discomfort. -One-on-one sitter, fall precautions. DVT prophylaxis-SCDs, no blood thinners secondary to recent rectal bleeding. Discussed with nurse. Omero Simmons December 28, 2017 08:02
[2017-12-28] MEDS ORDERED: POTASSIUM CHLORIDE 10 MEQ CONTROLLED RELEASE TAB PO ONE (08:15)
[2017-12-28] MEDS: MULTIVITAMINS/MINERALS THERAPEUTIC TAB PO SCH (09:00)
[2017-12-28] MEDS: DOCUSATE SODIUM 50 MG/SENNA 8.6 MG TAB PO SCH (09:00)
[2017-12-28] MEDS: DOCUSATE CALCIUM 240 MG CAP PO SCH (09:00)
[2017-12-28] MEDS: MEGESTROL ACETATE SUSP 400 MG/10 ML CUP PO SCH (09:00)
[2017-12-28] MEDS: NICOTINE 21 MG/24 HR PATCH T-DERMAL SCH (09:00)
[2017-12-28] MEDS: BUDESONIDE-FORMOTEROL 80/4.5 MCG INHALER INH SCH ×2 (09:00→20:32)
--- NOTE | 2017-12-28 10:14 | HHI.PYPN ---
Subjective Remarks Patient seen in [place] today patient retained by [place] [facility] applications sales representative case continued 4 weeks with healthcare surrogate appointed. Patient continues diffusely confused disoriented showing mixed compliance with medication. We will change the frequency of the Seroquel from every 6 hours to twice daily but increase the dose to 50 mg. Hopefully this will increase compliance Review of Systems Except as stated in HPI: all other systems reviewed are Neg Mental Status Examination Appearance: Appropriate Consciousness: Alert Orientation: Person Speech: Hesitant, Slow Language: Adequate Fund of Knowledge: Inadequate Attention and Concentration: Easily Distracted Memory: Impaired Mood: Appropriate Affect: Appropriate Thought Process & Associations: Loose associations Thought Content: Appropriate Hallucination Type: None Delusion Type: None Suicidal Ideation: No Suicidal Plan: No Suicidal Intention: No Homicidal Ideation: No Homicidal Plan: No Homicidal Intention: No Insight: Fair Judgment: Impulsive Results Labs Test 12/28/17 07:00 Potassium Level 3.4 MEQ/L Vitals/IOs Vital Signs Date Time Temp Pulse Resp B/P (MAP) Pulse Ox O2 Delivery O2 Flow Rate FiO2 12/28/17 05:52 73 18 151/65 (93) 98 12/26/17 18:24 97.2 Assessment & Plan Problem List: (1) DEMENTIA IN OTH DISEASES CLASSD ELSWHR W BEHAVIORAL DISTURB ICD Codes: F02.81 - DEMENTIA IN OTH DISEASES CLASSD ELSWHR W BEHAVIORAL DISTURB (2) ALZHEIMER'S DISEASE WITH LATE ONSET ICD Codes: G30.1 - ALZHEIMER'S DISEASE WITH LATE ONSET Assessment & Plan Estimated LOS: days patient continues confused and demented, patient was retained in [place] date she medication adjustment above Justification for Cont. Inpt. At this time patient would decompensate a place to the lower level of care Discharge Planning To be determined Srikanth Koroma MD December 28, 2017 10:14
[2017-12-28 18:09] VITALS: BP 114/51; PULSE 99; RESP 16; O2SAT 97
[2017-12-28] MEDS: SERTRALINE HCL 50 MG TAB PO SCH (20:31)
[2017-12-29 04:33] VITALS: BP 109/57; PULSE 98; RESP 16; TEMP 98.3; O2SAT 96
--- NOTE | 2017-12-29 08:10 | HHI.PR ---
Subjective Remarks Follow-up visit for rectal bleeding, asthma, hypokalemia, and poor p.o. intake. Patient is seen and examined in bed with staff member assisting with breakfast. She denies any shortness of breath, headaches, nausea, vomiting, or pain. Tech at bedside reports patient ambulated from bed to the bathroom. Nurse reports no BM recorded, no other concerns or complaints. Objective Vitals Vital Signs Date Time Temp Pulse Resp B/P (MAP) Pulse Ox O2 Delivery O2 Flow Rate FiO2 12/29/17 04:33 98.3 98 16 109/57 (74) 96 12/28/17 18:09 99 16 114/51 (72) 97 I/O 12/28/17 12/28/17 12/28/17 12/29/17 12/29/17 12/29/17 07:00 15:00 23:00 07:00 15:00 23:00 Intake Total 720 ml 120 ml Balance 720 ml 120 ml Intake Oral 720 ml 120 ml # Voids 2 Result Diagram: 12/25/17 1015 12/28/17 0700 Imaging Last Impressions Head CT 12/26/17 0000 Signed Impressions: CONCLUSION: 1. No acute intracranial abnormality. Stable compared to previous dated 2015. Abdomen X-Ray 12/26/17 0000 Signed Impressions: CONCLUSION: No acute findings. Objective Remarks GENERAL: elderly female in no acute distress. SKIN: No ecchymosis. HEAD: Atraumatic. Normocephalic. EYES: Extraocular motions intact. ENT: Nose without drainage. Airway patent. NECK: Trachea midline. CARDIOVASCULAR: Regular rate and rhythm without murmurs RESPIRATORY: Clear to auscultation. Breath sounds equal bilaterally. No wheezes GASTROINTESTINAL: Abdomen soft, flat, non-tender, nondistended. No guarding. Hypoactive bowel sounds MUSCULOSKELETAL: Moving bilateral upper and lower extremities without difficulties, no joint deformity, swelling, or erythema noted. Extremities without edema. NEUROLOGICAL: Awake and alert oriented to self. speech is clear. A/P Assessment and Plan Delirium/dementia - management per Psych GI bleed: Hb on 12/22/17 was 10.0, H&H are checked this morning 10.3/31.2, stable -s/p colonoscopy which showed, colonic polyps, diverticulosis, rectal ulcer probably traumatic -No reports of bleeding reported. Hypokalemia, mild Hypernatremia, mild Poor p.o. intake -K level yesterday 3.4, orders for p.o. replacement however does not appear patient never received this. Recheck K level this morning 3.4, replaced with 30 meq's p.o. -NA 148-->145, improved -Slight increase in creatinine 1.13, encourage p.o. intake and fluids. -Recheck BMP in 2-3 days Asthma: stable. -Continue home medications. PRN duonebs available Abdominal complaints, resolved Constipation Poor p.o. intake -KUB with 3.5 cm calcified fibroid noted in the pelvis as well as degenerative changes in lumbar spine, no other acute findings. -Discussed with nurse, as needed milk of magnesia to be administered today -Continue Megace for appetite, ensure shakes and pudding 3 times a day with meals, staff to assist patient with feedings. -If not improved may need calorie count. Fall -Patient ambulating without any difficulties, no complaints of pain or discomfort. -One-on-one sitter, fall precautions. DVT prophylaxis-SCDs, no blood thinners secondary to recent rectal bleeding. Discussed with nurse. Omero Simmons Dec 29, 2017 08:10
--- NOTE | 2017-12-29 08:41 | HHI.PYPN ---
Subjective Remarks Patient seen in her room, with nurse, chart reviewed, patient complaint medications, patient discussed with nurse. Patient calm cooperative with me continues diffusely confused disoriented, her oral intake still is somewhat poor but is better with encouragement. Compliant medications. He denies suicidality or voices. Review of Systems Except as stated in HPI: all other systems reviewed are Neg Mental Status Examination Appearance: Appropriate Consciousness: Alert Orientation: Person Speech: Hesitant, Slow Language: Adequate Fund of Knowledge: Inadequate Attention and Concentration: Easily Distracted Memory: Impaired Mood: Appropriate Affect: Appropriate Thought Process & Associations: Loose associations Thought Content: Appropriate Hallucination Type: None Delusion Type: None Suicidal Ideation: No Suicidal Plan: No Suicidal Intention: No Homicidal Ideation: No Homicidal Plan: No Homicidal Intention: No Insight: Fair Judgment: Impulsive Results Vitals/IOs Vital Signs Date Time Temp Pulse Resp B/P (MAP) Pulse Ox O2 Delivery O2 Flow Rate FiO2 12/29/17 04:33 98.3 98 16 109/57 (74) 96 Intake and Output 12/29/17 12/29/17 12/29/17 07:59 15:59 23:59 Intake Total 120 ml Balance 120 ml Assessment & Plan Problem List: (1) DEMENTIA IN OTH DISEASES CLASSD ELSWHR W BEHAVIORAL DISTURB ICD Codes: F02.81 - DEMENTIA IN OTH DISEASES CLASSD ELSWHR W BEHAVIORAL DISTURB (2) ALZHEIMER'S DISEASE WITH LATE ONSET ICD Codes: G30.1 - ALZHEIMER'S DISEASE WITH LATE ONSET Assessment & Plan Estimated LOS: days patient continues somewhat diffusely confused disoriented but no significant behavioral problems. Continue to encourage cooperation with eating and with medications Justification for Cont. Inpt. At this time patient would decompensate a place to a lower level of care Discharge Planning To be determined Srikanth Koroma MD Dec 29, 2017 08:41
[2017-12-29] MEDS: NICOTINE 21 MG/24 HR PATCH T-DERMAL SCH (09:00)
[2017-12-29 09:20] LABS: BICARBONATE 25.7 MEQ/L (21.0-32.0); CALCIUM 9.1 MG/DL (8.5-10.1); CREATININE 1.13 MG/DL (0.50-1.00)
[2017-12-29] MEDS ORDERED: POTASSIUM CHLORIDE 10 MEQ CONTROLLED RELEASE TAB PO ONE (09:45)
[2017-12-29] MEDS ORDERED: POTASSIUM CHLORIDE 25 MEQ EFFERVESCENT TAB PO ONE (11:30)
[2017-12-29] MEDS: MULTIVITAMINS/MINERALS THERAPEUTIC TAB PO SCH (12:52)
[2017-12-29] MEDS: MEGESTROL ACETATE SUSP 400 MG/10 ML CUP PO SCH (12:52)
[2017-12-29] MEDS: DOCUSATE SODIUM 50 MG/SENNA 8.6 MG TAB PO SCH (12:52)
[2017-12-29] MEDS: DOCUSATE CALCIUM 240 MG CAP PO SCH (12:52)
[2017-12-29] MEDS: BUDESONIDE-FORMOTEROL 80/4.5 MCG INHALER INH SCH ×2 (12:54→21:09)
[2017-12-29] MEDS: QUEtiapine FUMARATE 25 MG TAB PO SCH ×2 (13:12→21:09)
[2017-12-29] MEDS: MAGNESIUM HYDROXIDE SUSP 30 ML CUP PO PRN (14:03)
[2017-12-29 18:24] VITALS: BP 114/53; PULSE 82; RESP 16; TEMP 98.1; O2SAT 96
[2017-12-29] MEDS: SERTRALINE HCL 50 MG TAB PO SCH (21:09)
[2017-12-30 04:32] VITALS: BP 124/59; PULSE 76; RESP 15; TEMP 98.2; O2SAT 97
[2017-12-30] MEDS: MEGESTROL ACETATE SUSP 400 MG/10 ML CUP PO SCH (07:38)
[2017-12-30] MEDS: MULTIVITAMINS/MINERALS THERAPEUTIC TAB PO SCH (07:38)
[2017-12-30] MEDS: QUEtiapine FUMARATE 25 MG TAB PO SCH ×2 (07:38→20:24)
[2017-12-30] MEDS: DOCUSATE CALCIUM 240 MG CAP PO SCH (07:38)
[2017-12-30] MEDS: BUDESONIDE-FORMOTEROL 80/4.5 MCG INHALER INH SCH ×2 (07:39→20:25)
[2017-12-30] MEDS: DOCUSATE SODIUM 50 MG/SENNA 8.6 MG TAB PO SCH (07:39)
[2017-12-30] MEDS: NICOTINE 21 MG/24 HR PATCH T-DERMAL SCH (09:00)
--- NOTE | 2017-12-30 14:51 | HHI.PR ---
Subjective Remarks Follow-up visit poor appetite, dementia. Patient seen and examined today sitting in Ernestina chair. Patient is confused. She knows her name and date of but does not know where she is at. States she is at home and visiting. Unable to hold intelligible conversation. Able to follow commands. As per nursing, patient continues to have poor appetite, continues to be encouraged with p.o. intake. No acute issues overnight Objective Vitals Vital Signs Date Time Temp Pulse Resp B/P (MAP) Pulse Ox O2 Delivery O2 Flow Rate FiO2 12/30/17 04:32 98.2 76 15 124/59 (80) 97 12/29/17 18:24 98.1 82 16 114/53 (73) 96 I/O 12/29/17 12/29/17 12/29/17 12/30/17 12/30/17 12/30/17 07:00 15:00 23:00 07:00 15:00 23:00 Intake Total 120 ml 124 ml 360 ml 480 ml Balance 120 ml 124 ml 360 ml 480 ml Intake Oral 120 ml 124 ml 360 ml 480 ml # Voids 2 1 1 # Bowel Movements 1 1 Result Diagram: 12/29/17 0820 Imaging Last Impressions Head CT 12/26/17 0000 Signed Impressions: CONCLUSION: 1. No acute intracranial abnormality. Stable compared to previous dated 2015. Abdomen X-Ray 12/26/17 0000 Signed Impressions: CONCLUSION: No acute findings. Objective Remarks GENERAL: This is a thin appearing, well-developed patient, in no apparent distress. SKIN: Warm and dry. HEENT: Normocephalic. Pupils equal round and reactive. Nose without bleeding. Airway patent. NECK: Trachea midline. CARDIOVASCULAR: Regular rate and rhythm without murmurs, gallops, or rubs. RESPIRATORY: Clear to auscultation. Breath sounds equal bilaterally. No wheezes , rales, or rhonchi. GASTROINTESTINAL: Abdomen soft, non-tender, nondistended. Bowel Sounds normoactive x4. MUSCULOSKELETAL: Extremities without clubbing, cyanosis, or edema. NEUROLOGICAL: Awake and alert. Confused. Oriented to person. Moves all extremities. Normal speech. A/P Assessment and Plan 87 yr old AA female w PMHx asthma, dementia, arthritis, migraines admitted to the hospital due to potential rectal bleeding after her attempt to disimpact herself. Delirium/dementia - management per Psych GI bleed: Hb on 12/22/17 was 10.0, H&H are checked this morning 10.3/31.2, stable -S/p colonoscopy which showed, colonic polyps, diverticulosis, rectal ulcer probably traumatic -No reports of bleeding reported. Hypokalemia Hypernatremia Poor p.o. intake -Supplement as needed -Slight increase in creatinine 1.13, encourage p.o. intake and fluids. -Follow BMP Asthma: stable. -Continue home medications. PRN duonebs available Abdominal complaints, resolved Constipation Poor p.o. intake -KUB with 3.5 cm calcified fibroid noted in the pelvis as well as degenerative changes in lumbar spine, no other acute findings. -Continue bowel regimen -Continue Megace for appetite, ensure shakes and pudding 3 times a day with meals, staff to assist patient with feedings. -If not improved may need calorie count. Fall -Patient ambulating without any difficulties, no complaints of pain or discomfort. -One-on-one sitter, fall precautions. DVT prophylaxis-SCDs, no blood thinners secondary to recent rectal bleeding. Paul Donis Dec 30, 2017 14:51
[2017-12-30] MEDS ORDERED: POTASSIUM CHLORIDE 10 MEQ CONTROLLED RELEASE TAB PO ONE (15:15)
--- NOTE | 2017-12-30 17:13 | HHI.PYPN ---
Subjective Remarks Patient seen in her room with sitter, chart review, patient compliant medication , patient discussed with nurse she is alert somewhat feisty friendly with me. She is sitting in Ernestina chair eating her dinner. She continues diffusely confused and disoriented for now continue treatment Review of Systems Except as stated in HPI: all other systems reviewed are Neg Mental Status Examination Appearance: Appropriate Consciousness: Alert Orientation: Person Speech: Hesitant, Slow Language: Adequate Fund of Knowledge: Inadequate Attention and Concentration: Easily Distracted Memory: Impaired Mood: Appropriate Affect: Appropriate Thought Process & Associations: Loose associations Thought Content: Appropriate Hallucination Type: None Delusion Type: None Suicidal Ideation: No Suicidal Plan: No Suicidal Intention: No Homicidal Ideation: No Homicidal Plan: No Homicidal Intention: No Insight: Fair Judgment: Impulsive Results Vitals/IOs Vital Signs Date Time Temp Pulse Resp B/P (MAP) Pulse Ox O2 Delivery O2 Flow Rate FiO2 12/30/17 04:32 98.2 76 15 124/59 (80) 97 Intake and Output 12/30/17 12/30/17 12/31/17 08:00 16:00 00:00 Intake Total 240 ml 720 ml Balance 240 ml 720 ml Assessment & Plan Problem List: (1) DEMENTIA IN OTH DISEASES CLASSD ELSWHR W BEHAVIORAL DISTURB ICD Codes: F02.81 - DEMENTIA IN OTH DISEASES CLASSD ELSWHR W BEHAVIORAL DISTURB (2) ALZHEIMER'S DISEASE WITH LATE ONSET ICD Codes: G30.1 - ALZHEIMER'S DISEASE WITH LATE ONSET Assessment & Plan Estimated LOS: days patient continues demented and confused but was somewhat better spirits today, complaint medications, for now continue treatment Justification for Cont. Inpt. At this time patient would decompensate if placed in a lower level of care Discharge Planning To be determined Srikanth Koroma MD Dec 30, 2017 17:13
[2017-12-30 18:05] VITALS: BP 108/66; PULSE 83; RESP 16; TEMP 97.8; O2SAT 97
[2017-12-30] MEDS: SERTRALINE HCL 50 MG TAB PO SCH (20:23)
[2017-12-31 05:23] VITALS: BP 154/67; PULSE 83; RESP 17; TEMP 98.1; O2SAT 95
[2017-12-31 06:13] LABS: BICARBONATE 25.6 MEQ/L (21.0-32.0); CALCIUM 9.1 MG/DL (8.5-10.1); CREATININE 1.07 MG/DL (0.50-1.00); MAGNESIUM 2.4 MG/DL (1.5-2.5)
[2017-12-31] MEDS: DOCUSATE SODIUM 50 MG/SENNA 8.6 MG TAB PO SCH (09:00)
[2017-12-31] MEDS: QUEtiapine FUMARATE 25 MG TAB PO SCH ×2 (09:00→20:17)
[2017-12-31] MEDS: DOCUSATE CALCIUM 240 MG CAP PO SCH (09:00)
[2017-12-31] MEDS: NICOTINE 21 MG/24 HR PATCH T-DERMAL SCH (09:00)
[2017-12-31] MEDS: BUDESONIDE-FORMOTEROL 80/4.5 MCG INHALER INH SCH ×2 (09:00→20:18)
[2017-12-31] MEDS: MULTIVITAMINS/MINERALS THERAPEUTIC TAB PO SCH (09:00)
[2017-12-31] MEDS: MEGESTROL ACETATE SUSP 400 MG/10 ML CUP PO SCH (09:00)
--- NOTE | 2017-12-31 10:37 | HHI.PYPN ---
Subjective Remarks Patient seen in her room with RN, patient showing some increased compliance with medication taken with pudding or applesauce. Patient alert diffusely confused disoriented with some efforts to get out of her Ernestina chair come closer to me. Though she was redirected without difficulty by the staff. For now continue treatment no change Review of Systems Except as stated in HPI: all other systems reviewed are Neg Mental Status Examination Appearance: Appropriate Consciousness: Alert Orientation: Person Speech: Hesitant, Slow Language: Adequate Fund of Knowledge: Inadequate Attention and Concentration: Easily Distracted Memory: Impaired Mood: Appropriate Affect: Appropriate Thought Process & Associations: Loose associations Thought Content: Appropriate Hallucination Type: None Delusion Type: None Suicidal Ideation: No Suicidal Plan: No Suicidal Intention: No Homicidal Ideation: No Homicidal Plan: No Homicidal Intention: No Insight: Fair Judgment: Impulsive Results Labs Test 12/31/17 05:16 Blood Urea Nitrogen 15 MG/DL Creatinine 1.07 MG/DL Random Glucose 88 MG/DL Calcium Level 9.1 MG/DL Magnesium Level 2.4 MG/DL Sodium Level 143 MEQ/L Potassium Level 4.4 MEQ/L Chloride Level 109 MEQ/L Carbon Dioxide Level 25.6 MEQ/L Anion Gap 8 MEQ/L Estimat Glomerular Filtration Rate 59 ML/MIN Vitals/IOs Vital Signs Date Time Temp Pulse Resp B/P (MAP) Pulse Ox O2 Delivery O2 Flow Rate FiO2 12/31/17 05:23 98.1 83 17 154/67 (96) 95 Assessment & Plan Problem List: (1) DEMENTIA IN OTH DISEASES CLASSD ELSWHR W BEHAVIORAL DISTURB ICD Codes: F02.81 - DEMENTIA IN OTH DISEASES CLASSD ELSWHR W BEHAVIORAL DISTURB (2) ALZHEIMER'S DISEASE WITH LATE ONSET ICD Codes: G30.1 - ALZHEIMER'S DISEASE WITH LATE ONSET Assessment & Plan Patient continues confused and demented though showing some mild improvement in behaviors Justification for Cont. Inpt. At this time patient would decompensate a place to the lower level of care Discharge Planning To be determined Srikanth Koroma MD Dec 31, 2017 10:37
--- NOTE | 2017-12-31 14:43 | HHI.PR ---
Subjective Remarks Follow-up visit poor appetite, dementia. Patient seen and examined today sitting in Ernestina chair. Patient is pleasant. Confused. As per staff, patient ate 100% of breakfast, 100% lunch. No acute issues overnight Objective Vitals Vital Signs Date Time Temp Pulse Resp B/P (MAP) Pulse Ox O2 Delivery O2 Flow Rate FiO2 12/31/17 05:23 98.1 83 17 154/67 (96) 95 12/30/17 18:05 97.8 83 16 108/66 (80) 97 I/O 12/30/17 12/30/17 12/30/17 12/31/17 12/31/17 12/31/17 07:00 15:00 23:00 07:00 15:00 23:00 Intake Total 960 ml 240 ml 580 ml Balance 960 ml 240 ml 580 ml Intake Oral 960 ml 240 ml 580 ml # Voids 1 2 Result Diagram: 12/31/17 0516 Imaging Last Impressions Head CT 12/26/17 0000 Signed Impressions: CONCLUSION: 1. No acute intracranial abnormality. Stable compared to previous dated 2015. Abdomen X-Ray 12/26/17 0000 Signed Impressions: CONCLUSION: No acute findings. Objective Remarks GENERAL: This is a thin appearing, well-developed patient, in no apparent distress. SKIN: Warm and dry. HEENT: Normocephalic. Pupils equal round and reactive. Nose without bleeding. Airway patent. NECK: Trachea midline. CARDIOVASCULAR: Regular rate and rhythm without murmurs, gallops, or rubs. RESPIRATORY: Clear to auscultation. Breath sounds equal bilaterally. No wheezes , rales, or rhonchi. GASTROINTESTINAL: Abdomen soft, non-tender, nondistended. Bowel Sounds normoactive x4. MUSCULOSKELETAL: Extremities without clubbing, cyanosis, or edema. NEUROLOGICAL: Awake and alert. Confused. Oriented to person. Moves all extremities. Normal speech. A/P Assessment and Plan 87 yr old AA female w PMHx asthma, dementia, arthritis, migraines admitted to the hospital due to potential rectal bleeding after her attempt to disimpact herself. Delirium/dementia - management per Psych GI bleed: Hb on 12/22/17 was 10.0, H&H rechecked 10.3/31.2, stable -S/p colonoscopy which showed, colonic polyps, diverticulosis, rectal ulcer probably traumatic -No reports of bleeding reported. Acute kidney injury, possibly prerenal -Avoid nephrotoxins -Encourage p.o. fluid -Monitor electrolytes Asthma: stable. -Continue home medications. PRN duonebs available Abdominal complaints, resolved Constipation Poor p.o. intake -KUB with 3.5 cm calcified fibroid noted in the pelvis as well as degenerative changes in lumbar spine, no other acute findings. -Continue bowel regimen -Continue Megace for appetite, ensure shakes and pudding 3 times a day with meals, staff to assist patient with feedings. -Improved Fall -Patient ambulating without any difficulties, no complaints of pain or discomfort. -One-on-one sitter, fall precautions. DVT prophylaxis-SCDs, no blood thinners secondary to recent rectal bleeding. Stable from Hospitalist standpoint. We will sign off. Reconsult as needed. Paul Donis Dec 31, 2017 14:43
[2017-12-31 17:27] VITALS: BP 111/56; PULSE 81; RESP 16; TEMP 98.5
[2018-01-01] MEDS: NICOTINE 21 MG/24 HR PATCH T-DERMAL SCH (09:00)
--- NOTE | 2018-01-01 10:07 | PD.TTN ---
Patient Problems 1. Discharge planning 2. Medication compliance 3. Knowledge deficit 4. Lack of coping skills Progress Toward Goals Provider Present: Dr. Mannie Koroma Provider Input: pt compliant with medications, placement under consideration at either home or facility, counselor to follow-up with family. Nurse(s) Present: Emeli Psych Therapist Input: Emmanuel present, Shahnaz is out today. Group Spec/RT/OT/SMITH Present: Gregorio Hernandez OT Group Spec/RT/OT/SMITH Input: Pt is wc bound, she is able to attend groups for brief periods that involve outside activity, pt is largely unable to tolerate other activities Occupational Therapist Input: Pt is able to walk with assistance, she has been on 1:1 relative to a fall and her confusion. Pt requires assistance to ambulate and will require assistance with adls, self care upon discharge. Pt will benefit from skilled therapy or HHC following discharge. Discharge Plan TBD: home or facility, family to make final decision. Documentation Scribe: gregorio hernandez ms, otr Gregorio Hernandez Jan 01, 2018 10:07
[2018-01-01] MEDS: QUEtiapine FUMARATE 25 MG TAB PO SCH ×2 (11:40→20:38)
[2018-01-01] MEDS: DOCUSATE CALCIUM 240 MG CAP PO SCH (11:41)
[2018-01-01] MEDS: MULTIVITAMINS/MINERALS THERAPEUTIC TAB PO SCH (11:41)
[2018-01-01] MEDS: MEGESTROL ACETATE SUSP 400 MG/10 ML CUP PO SCH (11:41)
[2018-01-01] MEDS: DOCUSATE SODIUM 50 MG/SENNA 8.6 MG TAB PO SCH (11:41)
--- NOTE | 2018-01-01 12:37 | HHI.PYPN ---
Subjective Remarks Patient seen in her room with sitter nurse Srini and medical student gregoria, chart reviewed, patient compliant medication. Patient alert, somewhat feisty today, continues diffusely confused. The low significant behavioral problems. Review of Systems Except as stated in HPI: all other systems reviewed are Neg Mental Status Examination Appearance: Appropriate Consciousness: Alert Orientation: Person Speech: Hesitant, Slow Language: Adequate Fund of Knowledge: Inadequate Attention and Concentration: Easily Distracted Memory: Impaired Mood: Appropriate Affect: Appropriate Thought Process & Associations: Loose associations Thought Content: Appropriate Hallucination Type: None Delusion Type: None Suicidal Ideation: No Suicidal Plan: No Suicidal Intention: No Homicidal Ideation: No Homicidal Plan: No Homicidal Intention: No Insight: Fair Judgment: Impulsive Results Vitals/IOs Vital Signs Date Time Temp Pulse Resp B/P (MAP) Pulse Ox O2 Delivery O2 Flow Rate FiO2 12/31/17 17:27 98.5 81 16 111/56 (74) 12/31/17 05:23 95 Intake and Output 01/01/18 01/01/18 01/02/18 08:00 16:00 00:00 Intake Total 480 ml Balance 480 ml Assessment & Plan Problem List: (1) DEMENTIA IN OTH DISEASES CLASSD ELSWHR W BEHAVIORAL DISTURB ICD Codes: F02.81 - DEMENTIA IN OTH DISEASES CLASSD ELSWHR W BEHAVIORAL DISTURB (2) ALZHEIMER'S DISEASE WITH LATE ONSET ICD Codes: G30.1 - ALZHEIMER'S DISEASE WITH LATE ONSET Assessment & Plan Estimated LOS: days patient continues confused and demented the low significant behavioral problems, compliant medication Justification for Cont. Inpt. At this time patient would decompensate a place to the lower level of care Discharge Planning Placement remains somewhat difficult Srikanth Koroma MD Jan 01, 2018 12:37
[2018-01-01 18:00] VITALS: BP 126/58; PULSE 77; RESP 17; TEMP 97.2; O2SAT 99
[2018-01-01] MEDS: BUDESONIDE-FORMOTEROL 80/4.5 MCG INHALER INH SCH ×2 (20:37→20:44)
[2018-01-01] MEDS: SERTRALINE HCL 50 MG TAB PO SCH ×2 (20:38→20:44)
[2018-01-02] MEDS: MAGNESIUM HYDROXIDE SUSP 30 ML CUP PO PRN (02:11)
[2018-01-02 06:00] VITALS: BP 143/64; PULSE 85; RESP 18; TEMP 98.2
[2018-01-02] MEDS: MULTIVITAMINS/MINERALS THERAPEUTIC TAB PO SCH (08:19)
[2018-01-02] MEDS: DOCUSATE CALCIUM 240 MG CAP PO SCH (08:20)
[2018-01-02] MEDS: DOCUSATE SODIUM 50 MG/SENNA 8.6 MG TAB PO SCH (08:20)
[2018-01-02] MEDS: QUEtiapine FUMARATE 25 MG TAB PO SCH ×2 (08:20→22:37)
[2018-01-02] MEDS: NICOTINE 21 MG/24 HR PATCH T-DERMAL SCH (08:21)
[2018-01-02] MEDS: MEGESTROL ACETATE SUSP 400 MG/10 ML CUP PO SCH (08:22)
[2018-01-02] MEDS: BUDESONIDE-FORMOTEROL 80/4.5 MCG INHALER INH SCH ×2 (08:22→22:38)
--- NOTE | 2018-01-02 09:15 | HHI.PYPN ---
Subjective Remarks Patient seen in her room with nurse and medical student Nel, chart reviewed, patient compliant medications. Patient continues alert and diffusely confused, though no significant behavioral problems, appetite is fair, however the nurses do need to pressure meds which allows for better compliance. Otherwise no significant problems. Review of Systems Except as stated in HPI: all other systems reviewed are Neg Mental Status Examination Appearance: Appropriate Consciousness: Alert Orientation: Person Speech: Hesitant, Slow Language: Adequate Fund of Knowledge: Inadequate Attention and Concentration: Easily Distracted Memory: Impaired Mood: Appropriate Affect: Appropriate Thought Process & Associations: Loose associations Thought Content: Appropriate Hallucination Type: None Delusion Type: None Suicidal Ideation: No Suicidal Plan: No Suicidal Intention: No Homicidal Ideation: No Homicidal Plan: No Homicidal Intention: No Insight: Fair Judgment: Impulsive Results Vitals/IOs Vital Signs Date Time Temp Pulse Resp B/P (MAP) Pulse Ox O2 Delivery O2 Flow Rate FiO2 01/02/18 06:00 98.2 85 18 143/64 (90) 01/01/18 18:00 99 Intake and Output 01/02/18 01/02/18 01/03/18 08:00 16:00 00:00 Intake Total 300 ml 360 ml Balance 300 ml 360 ml Assessment & Plan Problem List: (1) DEMENTIA IN OTH DISEASES CLASSD ELSWHR W BEHAVIORAL DISTURB ICD Codes: F02.81 - DEMENTIA IN OTH DISEASES CLASSD ELSWHR W BEHAVIORAL DISTURB (2) ALZHEIMER'S DISEASE WITH LATE ONSET ICD Codes: G30.1 - ALZHEIMER'S DISEASE WITH LATE ONSET Assessment & Plan Estimated LOS: days patient continues confused demented somewhat feisty but no significant behavioral problems. Justification for Cont. Inpt. Patient would decompensate if not placed in an appropriate level of care Discharge Planning To be determined Srikanth Koroma MD Jan 02, 2018 09:15
[2018-01-02] MEDS: LORazepam 2 MG/ML VIAL IM PRN (18:08)
[2018-01-02 19:30] VITALS: BP 159/66; PULSE 76; RESP 18; TEMP 96.7; O2SAT 99
[2018-01-02 21:10] VITALS: BP 159/66; PULSE 76; RESP 18; TEMP 96.7; O2SAT 99
--- NOTE | 2018-01-02 21:12 | RADRPT ---
EXAM DATE: 01/02/2018 9:08 PM EDT AGE/SEX: 87 years / Female INDICATIONS: Fall. Neck pain. CLINICAL DATA: This is the patient's initial encounter. Patient reports that signs and symptoms have been present for 1 day and indicates a pain score of Nonresponsive. MEDICAL/SURGICAL HISTORY: None. None. COMPARISON: No prior [place] exams available for comparison. FINDINGS: Moderate disc space narrowing with endplate sclerosis and osteophytosis at C5-6. No prevertebral soft tissue swelling or compression deformity. Odontoid process is intact. Cervicothoracic junction is ap proximated. CONCLUSION: Degenerative changes at C5-6. Electronically signed by: Isaias Chavez MD 01/02/2018 9:11 PM EDT
--- NOTE | 2018-01-02 21:12 | RADRPT ---
EXAM DATE: 01/02/2018 9:10 PM EDT AGE/SEX: 87 years / Female INDICATIONS: Fall. Mid back pain. CLINICAL DATA: This is the patient's initial encounter. Patient reports that signs and symptoms have been present for 1 day and indicates a pain score of Nonresponsive. MEDICAL/SURGICAL HISTORY: None. None. COMPARISON: No prior [place] exams available for comparison. FINDINGS: Aortic calcification. No compression deformities. Mild disc space narrowing. Minimal osteophytosis. CONCLUSION: Mild degenerative changes. Electronically signed by: Isaias Chavez MD 01/02/2018 9:11 PM EDT
--- NOTE | 2018-01-02 21:15 | RADRPT ---
EXAM DATE: 01/02/2018 9:12 PM EDT AGE/SEX: 87 years / Female INDICATIONS: Inpatient fall. Low back pain. CLINICAL DATA: This is the patient's initial encounter. Patient reports that signs and symptoms have been present for 1 day and indicates a pain score of Nonresponsive. MEDICAL/SURGICAL HISTORY: None. None. COMPARISON: [facility], MR LUMBAR SPINE W/O CONTRAST, 09/07/2015. . FINDINGS: There is a calcified uterine fibroid suspected in the pelvis. There is moderate disc space narrowing at L4-5 and L5-S1 with endplate sclerosis and osteophytosis. Vacuum disc phenomenon at L4-5. No acute fractures are seen. CONCLUSION: Degenerative changes are again noted. Calcified uterine fibroids. Electronically signed by: Isaias Chavez MD 01/02/2018 9:14 PM EDT
[2018-01-02 21:44] VITALS: BP 124/58; PULSE 71; RESP 16; TEMP 97.4
[2018-01-02] MEDS: SERTRALINE HCL 50 MG TAB PO SCH (22:37)
[2018-01-03 01:30] VITALS: BP 140/60; PULSE 80; RESP 18; TEMP 97.6; O2SAT 98
[2018-01-03 05:38] VITALS: BP 119/56; PULSE 101; RESP 17; TEMP 98.9
[2018-01-03] MEDS: DOCUSATE CALCIUM 240 MG CAP PO SCH (08:15)
[2018-01-03] MEDS: DOCUSATE SODIUM 50 MG/SENNA 8.6 MG TAB PO SCH (08:15)
[2018-01-03] MEDS: MEGESTROL ACETATE SUSP 400 MG/10 ML CUP PO SCH (08:15)
[2018-01-03] MEDS: MULTIVITAMINS/MINERALS THERAPEUTIC TAB PO SCH (08:15)
[2018-01-03] MEDS: QUEtiapine FUMARATE 25 MG TAB PO SCH ×2 (08:16→20:55)
[2018-01-03] MEDS: NICOTINE 21 MG/24 HR PATCH T-DERMAL SCH (09:00)
[2018-01-03] MEDS: BUDESONIDE-FORMOTEROL 80/4.5 MCG INHALER INH SCH ×2 (09:00→21:00)
[2018-01-03] MEDS: LORazepam 2 MG/ML VIAL IM PRN (09:00)
--- NOTE | 2018-01-03 15:30 | HHI.PYPN ---
Subjective Remarks Patient seen 9 unit with floor staff, chart reviewed, patient continues somewhat feisty though redirectable at this time. She continues markedly diffusely confused and disoriented. We will refer patient to hospice to assess level of care Review of Systems Except as stated in HPI: all other systems reviewed are Neg Mental Status Examination Appearance: Appropriate Consciousness: Alert Orientation: Person Speech: Hesitant, Slow Language: Adequate Fund of Knowledge: Inadequate Attention and Concentration: Easily Distracted Memory: Impaired Mood: Appropriate Affect: Appropriate Thought Process & Associations: Loose associations Thought Content: Appropriate Hallucination Type: None Delusion Type: None Suicidal Ideation: No Suicidal Plan: No Suicidal Intention: No Homicidal Ideation: No Homicidal Plan: No Homicidal Intention: No Insight: Fair Judgment: Impulsive Results Vitals/IOs Vital Signs Date Time Temp Pulse Resp B/P (MAP) Pulse Ox O2 Delivery O2 Flow Rate FiO2 01/03/18 05:38 98.9 101 17 119/56 (77) 01/03/18 01:30 98 Assessment & Plan Problem List: (1) DEMENTIA IN OTH DISEASES CLASSD ELSWHR W BEHAVIORAL DISTURB ICD Codes: F02.81 - DEMENTIA IN OTH DISEASES CLASSD ELSWHR W BEHAVIORAL DISTURB (2) ALZHEIMER'S DISEASE WITH LATE ONSET ICD Codes: G30.1 - ALZHEIMER'S DISEASE WITH LATE ONSET Assessment & Plan Estimated LOS: days patient continues diffusely confused and demented needing frequent interventions, patien continues not compliant medications also Justification for Cont. Inpt. At this time patient would decompensate a place to the lower level of care Discharge Planning To be determined we will have hospitalist consult with Srikanth Saez MD Jan 03, 2018 15:30
[2018-01-03] MEDS ORDERED: LORA-392 PO (15:43)
[2018-01-03] MEDS ORDERED: SERO50TA PO (15:43)
[2018-01-03] MEDS ORDERED: MULT-116 PO (15:43)
[2018-01-03] MEDS ORDERED: Megestrol Liq PO (15:43)
[2018-01-03] MEDS ORDERED: SYMB80AE INH (15:43)
[2018-01-03] MEDS ORDERED: ZOLO25TA PO (15:43)
--- NOTE | 2018-01-03 15:47 | HHI.DS ---
Psychiatry Discharge Summary Inpatient Psychiatric care?: Yes Advance Directive: No Reason Not Provided: Due to Patient Condition Mental Health AdvanceDirective: No Health Care Proxy: No Admission Admission Date December 23, 2017 at 18:37 Admission Diagnosis: (1) ALZHEIMER'S DISEASE WITH LATE ONSET ICD Code: G30.1 - ALZHEIMER'S DISEASE WITH LATE ONSET (2) DEMENTIA IN OTH DISEASES CLASSD ELSWHR W BEHAVIORAL DISTURB ICD Code: F02.81 - DEMENTIA IN OTH DISEASES CLASSD ELSWHR W BEHAVIORAL DISTURB Brief History 12/22/2017 The patient is 87-year-old -Faro[place] woman, with psychiatric history of dementia, depression, admitted secondary to bright red blood per the rectum and abdominal pain. Had sigmoidoscopy/colonoscopy on 12/18. Continue to monitor H&H and transfuse as needed. Abdominal pain on admission. GIB- Rectal bleeding with findings of colon polyps, Diverticulosis, Rectal ulcer probably traumatic. S/p colonoscopy 12/18/17 shows Colon polyps, Diverticulosis, Rectal ulcer probably traumatic, Rectal ulcer probably traumatic. Acute kidney injury superimposed on chronic kidney disease stage II. Patient has been consulted to psychiatry due to agitation in the medical floor. However, on psychiatric evaluation I find a patient is calm, cooperative, pleasantly demented. Patient reports feeling okay. She said that she is happy today "to be here". Patient says that she is "here in [place], [place]". He denies symptoms of depression, denies anxiety, denies tracy and psychosis. The patient is oriented in person, disoriented in time, she thinks is [birth year] [address] Disoriented in [address]. She has been taking her medications, no side effects present at the moment. She denies suicidal and was ideation, denies visual and auditory hallucinations. No agitation or aggressive behavior observed during this evaluation. 12/24/2017 the patient was seen today for psychiatric evaluation. The patient is calm, eating her breakfast, superficially cooperative, pleasantly confused. Patient reports feeling much better. She says that she is happy to be here. She thinks that she is at home. At some point she does remember she is in a hospital, does not remember where. Disoriented in time. Denies depressive symptoms, denies anxiety, denies suicidal enemas ideation, denies visual and auditory hallucinations. No agitation or aggressive behavior present at this moment. I try to get collateral information from Arpit Maynard, , who is listed in the EMR as her son, but he did not answer the phone. Tobacco Use In Past 30 Days: No Tobacco Past 30 Days Alcohol Use: Monthly or Less Hospital Course Patient's hospital course was eventful for her overall cognitive deficits, along with her "feistiness" at times in the intervention but at times was appropriate and somewhat enjoyable. With her complaints medication her behaviors did calm down she was more easily redirectable. At this time I feel she is reached maximum benefit of this hospitalization. We are awaiting bed placement at [facility] and rehab hopefully a bed will be available either today or tomorrow for this patient Rx will be written 1 month follow-up mental health services through that facility Results Blood Pressure 119 / 56 Vital Signs Date Time Temp Pulse Resp B/P (MAP) Pulse Ox O2 Delivery O2 Flow Rate FiO2 01/03/18 05:38 98.9 101 17 119/56 (77) 01/03/18 01:30 98 Laboratory Results Test 12/24/17 08:00 Cholesterol Level 126 MG/DL (120-200) HDL Cholesterol 55.6 MG/DL (40.0-60.0) Hemoglobin A1c 4.7 % (4.3-6.0) LDL Cholesterol 58 MG/DL (0-99) Triglycerides Level 64 MG/DL (42-150) Summary of Procedures None done Imaging Last Impressions Thoracic Spine X-Ray 01/02/18 0000 Signed Impressions: CONCLUSION: Mild degenerative changes. Lumbar Spine X-Ray 01/02/18 0000 Signed Impressions: CONCLUSION: Degenerative changes are again noted. Calcified uterine fibroids. Cervical Spine X-Ray 01/02/18 0000 Signed Impressions: CONCLUSION: Degenerative changes at C5-6. Head CT 12/26/17 0000 Signed Impressions: CONCLUSION: 1. No acute intracranial abnormality. Stable compared to previous dated 2015. Abdomen X-Ray 12/26/17 0000 Signed Impressions: CONCLUSION: No acute findings. Pending results at discharge: No Medications # of Antipsychotic meds at D/C: 1 Approp Antipsych med options 1 - Minimum of three failed multiple trials of monotherapy. 2 - Documented plan to taper to monotherapy due to previous use of multiple meds OR cross-taper in progress at D/C. 3 - Documentation of augmentation of Clozapine. 4 - Justification other than those listed in allowable values 1-3, document here : Discharge Discharge Date: Jan 03, 2018 Discharge Diagnosis: (1) ALZHEIMER'S DISEASE WITH LATE ONSET Diagnosis: Principal ICD Code: G30.1 - ALZHEIMER'S DISEASE WITH LATE ONSET (2) DEMENTIA IN OTH DISEASES CLASSD ELSWHR W BEHAVIORAL DISTURB Diagnosis: Principal ICD Code: F02.81 - DEMENTIA IN OTH DISEASES CLASSD ELSWHR W BEHAVIORAL DISTURB Pt Condition on Discharge: Stable Discharge Disposition: Discharge to SNF Discharge Instructions Diet Instructions: As Tolerated, No Restrictions Activities you can perform: Regular-No Restrictions Scheduled Appointment: 3. Health and rehab Discharge Time > 30 minutes (To be discharged to that facility when bed available either today or tomorrow) Mental Status Examination Appearance: Appropriate Consciousness: Alert Orientation: Person Speech: Hesitant, Slow Language: Adequate Fund of Knowledge: Inadequate Attention and Concentration: Easily Distracted Memory: Impaired Mood: Appropriate Affect: Appropriate Thought Process & Associations: Loose associations Thought Content: Appropriate Hallucination Type: None Delusion Type: None Suicidal Ideation: No Suicidal Plan: No Suicidal Intention: No Homicidal Ideation: No Homicidal Plan: No Homicidal Intention: No Insight: Fair Judgment: Impulsive Discharge/Advance Care Plan Health Problems: (1) DEMENTIA IN OTH DISEASES CLASSD ELSWHR W BEHAVIORAL DISTURB (2) ALZHEIMER'S DISEASE WITH LATE ONSET Goals to promote your health * To prevent worsening of your condition and complications * To maintain your health at the optimal level Directions to meet your goals Take your medications as prescribed Follow your dietary instruction Follow activity as directed Keep your appointments as scheduled Take your immunizations and boosters as scheduled If your symptoms worsen call your PCP, if no PCP go to Urgent Care Center or Emergency Room For 24/7 questions related to your inpatient stay or results of tests pending at discharge, please contact Dr. Srikanth Koroma at Smoking is Dangerous to Your Health. Avoid second hand smoking Srikanth Koroma MD Jan 03, 2018 15:47
[2018-01-03 17:55] VITALS: BP 117/55; PULSE 83; RESP 17
[2018-01-03] MEDS: SERTRALINE HCL 50 MG TAB PO SCH (21:00)
[2018-01-04] MEDS: MULTIVITAMINS/MINERALS THERAPEUTIC TAB PO SCH (08:52)
[2018-01-04] MEDS: BUDESONIDE-FORMOTEROL 80/4.5 MCG INHALER INH SCH ×2 (08:53→22:10)
[2018-01-04] MEDS: QUEtiapine FUMARATE 25 MG TAB PO SCH ×2 (08:53→22:10)
[2018-01-04] MEDS: MEGESTROL ACETATE SUSP 400 MG/10 ML CUP PO SCH (08:53)
[2018-01-04] MEDS: DOCUSATE SODIUM 50 MG/SENNA 8.6 MG TAB PO SCH (08:53)
[2018-01-04] MEDS: NICOTINE 21 MG/24 HR PATCH T-DERMAL SCH (08:54)
[2018-01-04] MEDS: DOCUSATE CALCIUM 240 MG CAP PO SCH (08:57)
[2018-01-04 18:25] VITALS: BP 111/55; PULSE 97; RESP 18; TEMP 98.6; O2SAT 96
[2018-01-04] MEDS: SERTRALINE HCL 50 MG TAB PO SCH (22:10)
[2018-01-05 06:07] VITALS: BP 124/58; PULSE 97; RESP 18; TEMP 98.8; O2SAT 94
[2018-01-05] MEDS: NICOTINE 21 MG/24 HR PATCH T-DERMAL SCH (09:00)
[2018-01-05] MEDS: DOCUSATE SODIUM 50 MG/SENNA 8.6 MG TAB PO SCH (09:11)
[2018-01-05] MEDS: DOCUSATE CALCIUM 240 MG CAP PO SCH (09:11)
[2018-01-05] MEDS: QUEtiapine FUMARATE 25 MG TAB PO SCH ×2 (09:11→20:54)
[2018-01-05] MEDS: BUDESONIDE-FORMOTEROL 80/4.5 MCG INHALER INH SCH ×2 (09:11→20:54)
[2018-01-05] MEDS: MULTIVITAMINS/MINERALS THERAPEUTIC TAB PO SCH (09:11)
[2018-01-05] MEDS: MEGESTROL ACETATE SUSP 400 MG/10 ML CUP PO SCH (09:12)
--- NOTE | 2018-01-05 10:31 | HHI.PYPN ---
Subjective Remarks The anticipated discharge of this patient that was to have And on 01/04 was delayed secondary to insurance issues. Thus no progress note was written for yesterday. It appears that continues to be delays today related to that. Patient seen today patient continues diffusely confused demented though no significant behavioral problems. she is redirectable and compliant with her medication for now continue treatment. Continue to await final signatures on the insurance form so patient can be discharged to [facility] Review of Systems Except as stated in HPI: all other systems reviewed are Neg Mental Status Examination Appearance: Appropriate Consciousness: Alert Orientation: Person Speech: Hesitant, Slow Language: Adequate Fund of Knowledge: Inadequate Attention and Concentration: Easily Distracted Memory: Impaired Mood: Appropriate Affect: Appropriate Thought Process & Associations: Loose associations Thought Content: Appropriate Hallucination Type: None Delusion Type: None Suicidal Ideation: No Suicidal Plan: No Suicidal Intention: No Homicidal Ideation: No Homicidal Plan: No Homicidal Intention: No Insight: Fair Judgment: Impulsive Results Vitals/IOs Vital Signs Date Time Temp Pulse Resp B/P (MAP) Pulse Ox O2 Delivery O2 Flow Rate FiO2 01/05/18 06:07 98.8 97 18 124/58 (80) 94 Intake and Output 01/05/18 01/05/18 01/06/18 08:00 16:00 00:00 Intake Total 120 ml Balance 120 ml Assessment & Plan Problem List: (1) DEMENTIA IN OTH DISEASES CLASSD ELSWHR W BEHAVIORAL DISTURB ICD Codes: F02.81 - DEMENTIA IN OTH DISEASES CLASSD ELSWHR W BEHAVIORAL DISTURB (2) ALZHEIMER'S DISEASE WITH LATE ONSET ICD Codes: G30.1 - ALZHEIMER'S DISEASE WITH LATE ONSET Assessment & Plan Estimated LOS: days we will continue to await for final authorization for placement Justification for Cont. Inpt. Continue to await authorization for placement Discharge Planning Continue to await authorization for placement Srikanth Koroma MD Jan 05, 2018 10:31
[2018-01-05] MEDS: LORazepam 0.5 MG TAB PO PRN (14:42)
[2018-01-05 17:54] VITALS: BP 132/87; PULSE 95; RESP 18; TEMP 97; O2SAT 98
[2018-01-05] MEDS: SERTRALINE HCL 50 MG TAB PO SCH (21:00)
[2018-01-06 06:00] VITALS: BP 157/59; PULSE 89; RESP 18; TEMP 98.4; O2SAT 96
--- NOTE | 2018-01-06 14:43 | HHI.PYPN ---
Subjective Remarks Pt seen and discussed with nursing staff. Chart reviewed. Pt has been accepted at [facility] for placement today. Staff report that pt has been compliant with treatment and has not exhibited any agitation or aggression. She is pleasantly demented and cooperative with care. Mental Status Examination Appearance: Appropriate Consciousness: Alert Orientation: Person Speech: Hesitant, Slow Language: Adequate Fund of Knowledge: Inadequate Attention and Concentration: Easily Distracted Memory: Impaired Mood: Appropriate Affect: Appropriate Thought Process & Associations: Loose associations Thought Content: Appropriate Hallucination Type: None Delusion Type: None Suicidal Ideation: No Suicidal Plan: No Suicidal Intention: No Homicidal Ideation: No Homicidal Plan: No Homicidal Intention: No Insight: Fair Judgment: Impulsive Results Vitals/IOs Vital Signs Date Time Temp Pulse Resp B/P (MAP) Pulse Ox O2 Delivery O2 Flow Rate FiO2 01/06/18 06:00 98.4 89 18 157/59 (91) 96 Assessment & Plan Problem List: (1) DEMENTIA IN OTH DISEASES CLASSD ELSWHR W BEHAVIORAL DISTURB ICD Codes: F02.81 - DEMENTIA IN OTH DISEASES CLASSD ELSWHR W BEHAVIORAL DISTURB (2) ALZHEIMER'S DISEASE WITH LATE ONSET ICD Codes: G30.1 - ALZHEIMER'S DISEASE WITH LATE ONSET Assessment & Plan Estimated LOS: Yamileth Lopez MD Jan 06, 2018 14:43
== END 2018-01-06 16:05 | DRG 57 ==
LOC: H4EA 18:37 → H250 01-03 14:30
PROVIDERS: ADMIT Psychiatry & Neurology Psychiatry; ATTEND Psychiatry & Neurology Psychiatry
DX: G30.1 Alzheimer's disease with late onset (principal); N17.9 Acute kidney failure, unspecified; E87.0 Hyperosmolality and hypernatremia; F02.81 Dementia in other diseases classified elsewhere, unspecified severity, with behavioral disturbance; K62.6 Ulcer of anus and rectum; K92.2 Gastrointestinal hemorrhage, unspecified; K63.5 Polyp of colon; N18.2 Chronic kidney disease, stage 2 (mild); K59.00 Constipation, unspecified; K57.30 Diverticulosis of large intestine without perforation or abscess without bleeding; W19.XXXA Unspecified fall, initial encounter; F32.9 Major depressive disorder, single episode, unspecified; E87.6 Hypokalemia; J45.909 Unspecified asthma, uncomplicated; D25.9 Leiomyoma of uterus, unspecified; Z90.710 Acquired absence of both cervix and uterus
CPT/HCPCS: 70450; 72040; 72072; 72100; 74018; 80048; 80061; 83036; 83735; 84132; 85014; 85018; J1644; J2060